=== PATIENT | female | born 1985 | race Caucasian/White ===

== ENCOUNTER 2016-08-25 18:59 | Emergency (ER) | payer BC, OTHER ==
[2016-08-25] MEDS ORDERED: SODIUM CHLORIDE 0.9% 2,000 ML IV STA (20:50)
[2016-08-25] MEDS ORDERED: METOCLOPRAMIDE 5 MG/ML 2 ML VIAL IVP STA (20:50)
--- NOTE | 2016-08-25 21:16 | ED ---
Nausea/Vomiting/Diarrhea HPI - General Chief complaint: Nausea/Vomiting/Diarrhea Stated complaint: 7 1/2 weeks and vomiting nonstop Time Seen by Provider: 08/25/16 20:45 Source: patient, RN notes reviewed Mode of arrival: wheelchair Limitations: no limitations - History of Present Illness Initial comments: This a 31-year-old female presents emergency Department with chief complaint of nausea vomiting. Patient states that she is approximately 8 weeks . Patient has seen her PARCEL CARRIER Dr. Doe. Patient is A0. Patient states that she has not set vomiting over the last day or so. Patient denies any abdominal pain denies vaginal bleeding, vaginal discharge, diarrhea, constipation. Denies any hematemesis or coffee-ground emesis. Denies fever, chills. - Related Data Home Medications Medication Instructions Recorded Confirmed Multivitamins, Thera [Multivitamin 1 tab PO DAILY 08/25/16 08/25/16 (formulary)] Previous Rx's Medication Instructions Recorded Metoclopramide [Reglan] 10 mg PO TID PRN #15 tab 08/25/16 Allergies Allergy/AdvReac Type Severity Reaction Status Date / Time Penicillins Allergy Unknown Verified 08/25/16 20:49 Childhood Review of Systems ROS Statement: Those systems with pertinent positive or pertinent negative responses have been documented in the HPI. ROS Other: All systems not noted in ROS Statement are negative. Past Medical History Past Medical History: No Reported History History of Any Multi-Drug Resistant Organisms: None Reported Past Surgical History: Section Past Psychological History: No Psychological Hx Reported Smoking Status: Former smoker Past Alcohol Use History: None Reported Past Drug Use History: None Reported General Exam Limitations: no limitations General appearance: alert, in no apparent distress Head exam: Present: atraumatic, normocephalic, normal inspection Neck exam: Present: normal inspection, full ROM. Absent: tenderness, meningismus, lymphadenopathy Respiratory exam: Present: normal lung sounds bilaterally. Absent: respiratory distress, wheezes, rales, rhonchi, stridor Cardiovascular Exam: Present: regular rate, normal rhythm, normal heart sounds. Absent: systolic murmur, diastolic murmur, rubs, gallop, clicks GI/Abdominal exam: Present: soft, normal bowel sounds. Absent: distended, tenderness, guarding, rebound, rigid Back exam: Absent: CVA tenderness (R), CVA tenderness (L) Course Vital Signs 08/25/16 19:33 Temperature 98.5 F Pulse Rate 76 Respiratory 18 Rate Blood Pressure 103/56 O2 Sat by Pulse 100 Oximetry Medical Decision Making - Medical Decision Making 31-year-old female presented emergency department for nausea vomiting early . Patient states she feels much better after IV fluids, Reglan. Patient be discharged this time with Reglan. Return parameters were discussed. - Lab Data Result diagrams: 08/25/16 21:15 08/25/16 21:15 Lab Results 08/25/16 08/25/16 08/25/16 Range/Units 21:15 21:15 21:15 WBC 11.3 H (3.8-10.6) k/uL RBC 5.02 (3.80-5.40) m/uL Hgb 12.5 (11.4-16.0) gm/dL Hct 39.3 (34.0-46.0) % MCV 78.4 L (80.0-100.0) fL MCH 25.0 (25.0-35.0) pg MCHC 31.9 (31.0-37.0) g/dL RDW 15.3 (11.5-15.5) % Plt Count 268 (150-450) k/uL Neutrophils % 69 % Lymphocytes % 24 % Monocytes % 5 % Eosinophils % 1 % Basophils % 0 % Neutrophils # 7.8 H (1.3-7.7) k/uL Lymphocytes # 2.7 (1.0-4.8) k/uL Monocytes # 0.6 (0-1.0) k/uL Eosinophils # 0.1 (0-0.7) k/uL Basophils # 0.0 (0-0.2) k/uL Hypochromasia Slight Sodium 137 (137-145) mmol/L Potassium 4.1 (3.5-5.1) mmol/L Chloride 102 (98-107) mmol/L Carbon Dioxide 23 (22-30) mmol/L Anion Gap 12 mmol/L BUN 15 (7-17) mg/dL Creatinine 0.60 (0.52-1.04) mg/dL Est GFR (MDRD) Af Amer >60 (>60 ml/min/1.73 sqM) Est GFR (MDRD) Non-Af >60 (>60 ml/min/1.73 sqM) Glucose 92 (74-99) mg/dL Calcium 9.5 (8.4-10.2) mg/dL Total Bilirubin 0.7 (0.2-1.3) mg/dL AST 24 (14-36) U/L ALT 37 (9-52) U/L Alkaline Phosphatase 104 (38-126) U/L Total Protein 7.6 (6.3-8.2) g/dL Albumin 4.3 (3.5-5.0) g/dL Amylase 51 (30-110) U/L Lipase 40 (23-300) U/L HCG, Quant 75980.6 mIU/mL Urine Color Dark Yellow Urine Appearance Turbid H (Clear) Urine pH 5.5 (5.0-8.0) Ur Specific [place] 1.032 (1.001-1.035) Urine Protein 1+ H (Negative) Urine Glucose (UA) Negative (Negative) Urine Ketones 1+ H (Negative) Urine Blood Negative (Negative) Urine Nitrite Negative (Negative) Urine Bilirubin 1+ H (Negative) Urine Urobilinogen 4.0 (<2.0) mg/dL Ur Leukocyte Esterase Large H (Negative) Urine RBC 4 (0-5) /hpf Urine WBC 29 H (0-5) /hpf Ur Squamous Epith Cells 15 H (0-4) /hpf Urine Bacteria Rare H (None) /hpf Urine Mucus Rare H (None) /hpf Disposition Clinical Impression: Nausea/vomiting in Disposition: HOME SELF-CARE Condition: Stable Instructions: Acute Nausea and Vomiting (ED) Additional Instructions: Please return to the Emergency Department if symptoms worsen or any other concerns. Prescriptions: Metoclopramide [Reglan] 10 mg PO TID PRN #15 tab PRN Reason: GERD Time of Disposition: 22:59
[2016-08-25 21:26] LABS: Basophils % (A) 0 %; CH 24.7; CHCM 31.6; Eosinophils # (A) 0.1 k/uL (0-0.7); Eosinophils % (A) 1 %; HCT 39.3 % (34.0-46.0); HDW 2.66; HGB 12.5 gm/dL (11.4-16.0); Hypochromasia Slight; Luc # (Auto) 0.14; Luc % (Auto) 1; Lymphocytes # (A) 2.7 k/uL (1.0-4.8); Lymphocytes % (A) 24 %; MCHC 31.9 g/dL (31.0-37.0); MCV 78.4 fL (80.0-100.0); Mean Platelet Volume 6.7; Monocytes # (A) 0.6 k/uL (0-1.0); Monocytes % (A) 5 %; Neutrophils # (A) 7.8 k/uL (1.3-7.7); Neutrophils % (A) 69 %; RBC 5.02 m/uL (3.80-5.40); RDW 15.3 % (11.5-15.5); WBC 11.3 k/uL (3.8-10.6); WBC (Perox) 11.08
[2016-08-25 21:36] LABS: Appearance,Urine Turbid (Clear); Bacteria,Urine Rare /hpf; Bilirubin,Urine 1+ (Negative); Glucose,Urine (UA) Negative (Negative); Ketones,Urine 1+ (Negative); Leukocyte Esterase,Urine Large (Negative); Mucus,Urine Rare /hpf; Nitrite,Urine Negative (Negative); PH, Urine 5.5 (5.0-8.0); Particle Count 19730; Protein,Urine 1+ (Negative); RBC,Urine 4 /hpf (0-5); Specific Gravity,Urine 1.032 (1.001-1.035); Squamous Epithelial Cell,Urine 15 /hpf (0-4); UA Billing (MACRO vs. MICRO) MICRO; WBC,Urine 29 /hpf (0-5)
[2016-08-25 21:46] LABS: ALT 37 U/L (9-52); AST 24 U/L (14-36); Alkaline Phosphatase 104 U/L (38-126); Amylase 51 U/L (30-110); Anion Gap 12 mmol/L; Blood Urea Nitrogen 15 mg/dL (7-17); Calcium 9.5 mg/dL (8.4-10.2); Carbon Dioxide 23 mmol/L (22-30); Chloride 102 mmol/L (98-107); Glucose 92 mg/dL (74-99); Non-African American GFR(MDRD) >60 (>60 ml/min/1.73 sqM); Potassium 4.1 mmol/L (3.5-5.1); Sodium 137 mmol/L (137-145); Total Bilirubin 0.7 mg/dL (0.2-1.3); Total Protein 7.6 g/dL (6.3-8.2)
[2016-08-25 22:49] LABS: HCG,Quantitative Serum 86629.6 mIU/mL
[2016-08-25 23:22] VITALS: BP 108/52; PULSE 66; RESP 16; TEMP 98.2
== END 2016-08-25 23:51 | disposition home or self-care (01) ==
LOC: EC 18:59
DX: O21.9 Vomiting of pregnancy, unspecified (principal); Z3A.08 8 weeks gestation of pregnancy; Z87.891 Personal history of nicotine dependence; Z79.899 Other long term (current) drug therapy; Z88.0 Allergy status to penicillin
CPT/HCPCS: 36415; 80053; 82150; 83690; 85025; 81001; 84702; 87086; 99284; 96374; 96361 ×2; J2765

== ENCOUNTER → 2016-09-01 | Outpatient (CLI) | payer OTHER ==
--- NOTE | 2016-09-01 12:08 | US ---
EXAMINATION TYPE: US OB <=14 wks transvag DATE OF EXAM: 09/01/2016 10:56 AM COMPARISON: NONE CLINICAL HISTORY: 31-year-old female Z36 Confirm Dates. Date of LMP: 07/04/2016 EXAM PERFORMED: Transvaginal (TV) and Transabdominal (TA) scanning was medically necessary to adequa tely evaluate. FINDINGS: EXAM MEASUREMENTS: GESTATIONAL AGE / DATING Physician Established: ) Not established yet Dates by LMP: ( 8 weeks/3 days) EDC: 04/10/2017 Dates by First Scan: No previous this is first scan Dates by Current Scan for: (8 weeks/4 days) EDC: 04/09/2017 MATERNAL ANATOMY Uterus: 8.9 x 7.4 x 8.2 cm, possible septate uterus with the gestation seen on the left and possibly implanted on the septum. Right Ovary: 2.5 x 1.5 x 2.6 cm Left Ovary: not seen Post CDS / Adnexa: wnl Presence of free fluid: no Presence of corpus luteal cyst: no Presence of subchorionic bleed: no GESTATION / SURVEY CRL: 1.8 cm (8 weeks/2 days) MSD: 3.7 cm (8 weeks/6 days) Yolk Sac (normal less than 6mm): 5 Heart Rate: 155 bpm Rhythm: Normal IUP: Viable IUP IMPRESSION: 1. Single live intrauterine with estimated gestational age of 8 weeks 3 days by LMP. Curren t ultrasound biometry is concordant (8 weeks 4 days). 2. Query any known congenital uterine anomaly. There may be a septate uterus with left-sided implanta tion along the septum. Follow-up as indicated. 3. Complete survey recommended at 18-20 weeks.
[2016-09-01 12:19] LABS: Hepatitis B Surface Ag Index 0.07
[2016-09-03 07:31] LABS: HIV-1/HIV-2 Ab Screen NONREAC (NON REAC)
== END | disposition home or self-care (01) ==
LOC: RADUSWWP 10:30
PROVIDERS: ATTEND Obstetrics & Gynecology
DX: Z36 Encounter for antenatal screening of mother (principal); Z3A.08 8 weeks gestation of pregnancy
CPT/HCPCS: 36415; 76801; 76817; 86762; 86780; 86850; 86900; 86901; 87340; 87389

== ENCOUNTER 2016-11-08 18:01 | Emergency (ER) | payer OTHER ==
[2016-11-08 18:17] LABS: Glucose,Whole Blood 85 mg/dL (75-99)
[2016-11-08] MEDS ORDERED: SODIUM CHLORIDE 0.9% 1,000 ML IV STA (18:22)
[2016-11-08] MEDS ORDERED: ACETAMINOPHEN TAB 500 MG TAB PO STA (18:26)
--- NOTE | 2016-11-08 18:41 | ED ---
Dizziness HPI - General Chief Complaint: Syncope Stated Complaint: Syncope Time Seen by Provider: 11/08/16 18:15 Source: EMS, RN notes reviewed, old records reviewed Mode of arrival: EMS - History of Present Illness Initial Comments: This is a 31-year-old female presenting to the emergency Department chief complaint of syncopal episode while at a restaurant today. Patient reports that she was standing in line and then all of a sudden passed out. She reports that she had the back of her head and did lose consciousness for one or 2 seconds. Patient mainly complains of a mild headache. Patient reports that she awoke with multiple people standing around her. Patient reports that she is currently 17 weeks . Patient denies any abdominal pain, chest pain, or shortness of breath. Patient states that she's never had this happen before. Patient's LEGAL RESEARCH ANALYST is Dr. Doe. She denies any vaginal bleeding or discharge. She reports that she was feeling fine today and went to a baseball game earlier had no issues. Patient reports she's been trying to remain hydrated. Denies any dysuria mature changes in bowel movements. - Related Data Home Medications Medication Instructions Recorded Confirmed No Known Home Medications [No 11/08/16 11/08/16 Known Home Medications] Allergies Allergy/AdvReac Type Severity Reaction Status Date / Time Penicillins Allergy Unknown Verified 11/08/16 18:41 Childhood Review of Systems ROS Statement: Those systems with pertinent positive or pertinent negative responses have been documented in the HPI. ROS Other: All systems not noted in ROS Statement are negative. Past Medical History Past Medical History: No Reported History History of Any Multi-Drug Resistant Organisms: None Reported Past Surgical History: Section Past Psychological History: No Psychological Hx Reported Smoking Status: Former smoker Past Alcohol Use History: None Reported Past Drug Use History: None Reported General Exam - General Exam Comments Initial Comments: This is a pleasant 31-year-old female. Patient is on appear to be in any acute distress. General appearance: alert, in no apparent distress Head exam: Present: atraumatic, normocephalic, normal inspection Eye exam: Present: normal appearance, PERRL, EOMI. Absent: scleral icterus, conjunctival injection, periorbital swelling ENT exam: Present: normal exam, mucous membranes moist Neck exam: Present: normal inspection. Absent: tenderness, meningismus, lymphadenopathy Respiratory exam: Present: normal lung sounds bilaterally. Absent: respiratory distress, wheezes, rales, rhonchi, stridor Cardiovascular Exam: Present: regular rate, normal rhythm, normal heart sounds. Absent: systolic murmur, diastolic murmur, rubs, gallop, clicks GI/Abdominal exam: Present: soft, normal bowel sounds. Absent: distended, tenderness, guarding, rebound, rigid Extremities exam: Present: normal inspection, full ROM, normal capillary refill. Absent: tenderness, pedal edema, joint swelling, calf tenderness Back exam: Present: normal inspection Neurological exam: Present: alert, oriented X3, CN II-XII intact Expanded Patient oriented to: Present: person, place, time Speech: Present: fluid speech Cranial nerves: EOM's Intact: Normal, Gag Reflex: Normal, Tongue Deviation: Normal, Facial Sensation: Normal Cerebellar function: Finger to Nose: Normal Upper motor neuron: Pronator Drift: Normal Sensory exam: Upper Extremity Light Touch: Normal, Lower Extremity Light Touch: Normal Motor strength exam: RUE: 5, LUE: 5, RLE: 5, LLE: 5 Eye Response: (4) open spontaneously Motor Response: (6) obeys commands Verbal Response: (5) oriented [place] Total: 15 Psychiatric exam: Present: normal affect, normal mood Skin exam: Present: warm, dry, intact, normal color. Absent: rash Course Vital Signs 11/08/16 11/08/16 11/08/16 18:02 18:52 18:53 Temperature 98.2 F Pulse Rate 71 Respiratory 18 Rate Blood Pressure 116/59 Blood Pressure 117/58 [Right Arm Sitting] Blood Pressure 114/52 [Right Arm Supine] Blood Pressure 106/55 [Standing] O2 Sat by Pulse 99 Oximetry 11/08/16 19:05 Temperature Pulse Rate 70 Respiratory 16 Rate Blood Pressure 103/69 Blood Pressure [Right Arm Sitting] Blood Pressure [Right Arm Supine] Blood Pressure [Standing] O2 Sat by Pulse 99 Oximetry EKG Findings - EKG Comments: EKG Findings:: EKG shows normal sinus rhythm. Ventricular rate 71 bpm. WV interval 150 ms. QRS duration 80 ms. QT/QTc is 46/441 ms. No distress elevation or T-wave inversion. No evidence of a atrial or ventricular arrhythmias. Medical Decision Making - Medical Decision Making This is a 31-year-old female presenting to the emergency Department chief complaint of syncopal episode while at a restaurant today. Patient reports that she was standing in line and then all of a sudden passed out. She reports that she had the back of her head and did lose consciousness for one or 2 seconds. Patient mainly complains of a mild headache. Patient reports that she awoke with multiple people standing around her. Patient reports that she is currently 17 weeks . Patient denies any abdominal pain, chest pain, or shortness of breath. Patient's heart tones were measured at 150. Patient EKG was reviewed and normal. I discussed doing a CAT scan with the patient however discussed also the effects of radiation and the fact the patient is . Patient elects to not have a CAT scan at this time. Patient is neurologically intact. GCS of 15. Patient has no physical exam findings. Patient reports that she just feels mildly dizzy. She denies any vertigo like symptoms. Discussed the patient likely had an orthostatic episode. She does report that she did drinking excess amounts of caffeine. Discussed that is not appropriate during that she needs to remain hydrated. Patient agrees to follow-up with her primary care provider tomorrow. Patient nurse's treatment plan will comply. - Lab Data Result diagrams: 11/08/16 18:10 11/08/16 18:10 Lab Results 11/08/16 11/08/16 11/08/16 Range/Units 18:10 18:10 18:10 WBC 9.2 (3.8-10.6) k/uL RBC 4.03 (3.80-5.40) m/uL Hgb 10.9 L (11.4-16.0) gm/dL Hct 33.5 L (34.0-46.0) % MCV 83.1 (80.0-100.0) fL MCH 27.1 (25.0-35.0) pg MCHC 32.6 (31.0-37.0) g/dL RDW 16.7 H (11.5-15.5) % Plt Count 196 (150-450) k/uL Neutrophils % 73 % Lymphocytes % 20 % Monocytes % 5 % Eosinophils % 1 % Basophils % 0 % Neutrophils # 6.7 (1.3-7.7) k/uL Lymphocytes # 1.9 (1.0-4.8) k/uL Monocytes # 0.4 (0-1.0) k/uL Eosinophils # 0.1 (0-0.7) k/uL Basophils # 0.0 (0-0.2) k/uL Anisocytosis Slight PT (9.0-12.0) sec INR (<1.1) APTT (22.0-30.0) sec Sodium 136 L (137-145) mmol/L Potassium 4.1 (3.5-5.1) mmol/L Chloride 109 H (98-107) mmol/L Carbon Dioxide 19 L (22-30) mmol/L Anion Gap 8 mmol/L BUN 10 (7-17) mg/dL Creatinine 0.52 (0.52-1.04) mg/dL Est GFR (MDRD) Af Amer >60 (>60 ml/min/1.73 sqM) Est GFR (MDRD) Non-Af >60 (>60 ml/min/1.73 sqM) Glucose 84 (74-99) mg/dL POC Glucose (mg/dL) (75-99) mg/dL POC Glu Wall And Floor Tiler ID Calcium 8.9 (8.4-10.2) mg/dL Magnesium 1.8 (1.6-2.3) mg/dL Total Bilirubin 0.4 (0.2-1.3) mg/dL AST 14 (14-36) U/L ALT 21 (9-52) U/L Alkaline Phosphatase 88 (38-126) U/L Total Creatine Kinase <20 L (30-135) U/L CK-MB (CK-2) <0.2 (0.0-2.4) ng/mL CK-MB (CK-2) Rel Index Troponin I <0.012 (0.000-0.034) ng/mL Total Protein 6.1 L (6.3-8.2) g/dL Albumin 3.2 L (3.5-5.0) g/dL Urine Color Urine Appearance (Clear) Urine pH (5.0-8.0) Ur Specific [place] (1.001-1.035) Urine Protein (Negative) Urine Glucose (UA) (Negative) Urine Ketones (Negative) Urine Blood (Negative) Urine Nitrite (Negative) Urine Bilirubin (Negative) Urine Urobilinogen (<2.0) mg/dL Ur Leukocyte Esterase (Negative) Urine RBC (0-5) /hpf Urine WBC (0-5) /hpf Ur Squamous Epith Cells (0-4) /hpf Calcium Oxalate Crystal (None) /hpf Amorphous Sediment (None) /hpf Urine Bacteria (None) /hpf Urine Mucus (None) /hpf 11/08/16 11/08/16 11/08/16 Range/Units 18:10 18:10 18:13 WBC (3.8-10.6) k/uL RBC (3.80-5.40) m/uL Hgb (11.4-16.0) gm/dL Hct (34.0-46.0) % MCV (80.0-100.0) fL MCH (25.0-35.0) pg MCHC (31.0-37.0) g/dL RDW (11.5-15.5) % Plt Count (150-450) k/uL Neutrophils % % Lymphocytes % % Monocytes % % Eosinophils % % Basophils % % Neutrophils # (1.3-7.7) k/uL Lymphocytes # (1.0-4.8) k/uL Monocytes # (0-1.0) k/uL Eosinophils # (0-0.7) k/uL Basophils # (0-0.2) k/uL Anisocytosis PT 10.5 (9.0-12.0) sec INR 1.0 (<1.1) APTT 22.4 (22.0-30.0) sec Sodium (137-145) mmol/L Potassium (3.5-5.1) mmol/L Chloride (98-107) mmol/L Carbon Dioxide (22-30) mmol/L Anion Gap mmol/L BUN (7-17) mg/dL Creatinine (0.52-1.04) mg/dL Est GFR (MDRD) Af Amer (>60 ml/min/1.73 sqM) Est GFR (MDRD) Non-Af (>60 ml/min/1.73 sqM) Glucose (74-99) mg/dL POC Glucose (mg/dL) 85 (75-99) mg/dL POC Glu Wall And Floor Tiler ID [place] Calcium (8.4-10.2) mg/dL Magnesium (1.6-2.3) mg/dL Total Bilirubin (0.2-1.3) mg/dL AST (14-36) U/L ALT (9-52) U/L Alkaline Phosphatase (38-126) U/L Total Creatine Kinase (30-135) U/L CK-MB (CK-2) (0.0-2.4) ng/mL CK-MB (CK-2) Rel Index Troponin I (0.000-0.034) ng/mL Total Protein (6.3-8.2) g/dL Albumin (3.5-5.0) g/dL Urine Color Yellow Urine Appearance Cloudy H (Clear) Urine pH 6.0 (5.0-8.0) Ur Specific [place] 1.022 (1.001-1.035) Urine Protein Trace H (Negative) Urine Glucose (UA) Negative (Negative) Urine Ketones Negative (Negative) Urine Blood Negative (Negative) Urine Nitrite Negative (Negative) Urine Bilirubin Negative (Negative) Urine Urobilinogen 4.0 (<2.0) mg/dL Ur Leukocyte Esterase Large H (Negative) Urine RBC <1 (0-5) /hpf Urine WBC 24 H (0-5) /hpf Ur Squamous Epith Cells 11 H (0-4) /hpf Calcium Oxalate Crystal Rare H (None) /hpf Amorphous Sediment Rare H (None) /hpf Urine Bacteria Occasional H (None) /hpf Urine Mucus Occasional H (None) /hpf Disposition Clinical Impression: Syncope Disposition: HOME SELF-CARE Condition: Good Instructions: Syncope in Children (ED) Additional Instructions: Patient advised to follow-up with primary care provider tomorrow. Patient is to rest, increase fluids. Return to the emergency department if any alarming signs or symptoms occur. Referrals: Kusum Clarke DO [Primary Care Provider] - 1-2 days Time of Disposition: 19:56
[2016-11-08 18:53] LABS: Anisocytosis Slight; Basophils % (A) 0 %; CH 27.4; CHCM 33.1; Eosinophils # (A) 0.1 k/uL (0-0.7); Eosinophils % (A) 1 %; HCT 33.5 % (34.0-46.0); HDW 2.68; HGB 10.9 gm/dL (11.4-16.0); Luc # (Auto) 0.12; Luc % (Auto) 1; Lymphocytes # (A) 1.9 k/uL (1.0-4.8); Lymphocytes % (A) 20 %; MCH 27.1 pg (25.0-35.0); MCHC 32.6 g/dL (31.0-37.0); MCV 83.1 fL (80.0-100.0); Mean Platelet Volume 6.9; Monocytes # (A) 0.4 k/uL (0-1.0); Monocytes % (A) 5 %; Neutrophils # (A) 6.7 k/uL (1.3-7.7); Neutrophils % (A) 73 %; RBC 4.03 m/uL (3.80-5.40); RDW 16.7 % (11.5-15.5); WBC 9.2 k/uL (3.8-10.6); WBC (Perox) 9.54
[2016-11-08 19:00] LABS: Amorphous Sediment,Urine Rare /hpf; Appearance,Urine Cloudy (Clear); Bacteria,Urine Occasional /hpf; Bilirubin,Urine Negative (Negative); Calcium Oxalate Crystals,Urine Rare /hpf; Glucose,Urine (UA) Negative (Negative); Ketones,Urine Negative (Negative); Leukocyte Esterase,Urine Large (Negative); Mucus,Urine Occasional /hpf; Nitrite,Urine Negative (Negative); Particle Count 9358; Protein,Urine Trace (Negative); RBC,Urine <1 /hpf (0-5); Specific Gravity,Urine 1.022 (1.001-1.035); Squamous Epithelial Cell,Urine 11 /hpf (0-4); UA Billing (MACRO vs. MICRO) MICRO; WBC,Urine 24 /hpf (0-5)
[2016-11-08 19:03] LABS: Partial Thromboplastin Time 22.4 sec (22.0-30.0); Prothrombin Time 10.5 sec (9.0-12.0)
[2016-11-08 19:15] LABS: ALT 21 U/L (9-52); AST 14 U/L (14-36); Alkaline Phosphatase 88 U/L (38-126); Anion Gap 8 mmol/L; Blood Urea Nitrogen 10 mg/dL (7-17); Calcium 8.9 mg/dL (8.4-10.2); Carbon Dioxide 19 mmol/L (22-30); Chloride 109 mmol/L (98-107); Glucose 84 mg/dL (74-99); Magnesium 1.8 mg/dL (1.6-2.3); Non-African American GFR(MDRD) >60 (>60 ml/min/1.73 sqM); Potassium 4.1 mmol/L (3.5-5.1); Sodium 136 mmol/L (137-145); Total Bilirubin 0.4 mg/dL (0.2-1.3); Total Protein 6.1 g/dL (6.3-8.2)
[2016-11-08 19:17] LABS: Creatine Kinase <20 U/L (30-135)
[2016-11-08 19:30] LABS: Creatine Kinase MB <0.2 ng/mL (0.0-2.4); Troponin I <0.012 ng/mL (0.000-0.034)
[2016-11-08 20:33] VITALS: BP 97/48; PULSE 65; RESP 18; TEMP 98.4
== END 2016-11-08 20:33 | disposition home or self-care (01) ==
LOC: EC 18:01
DX: O26.892 Other specified pregnancy related conditions, second trimester (principal); O99.89 Other specified diseases and conditions complicating pregnancy, childbirth and the puerperium; R55 Syncope and collapse; R51 Headache; Z3A.17 17 weeks gestation of pregnancy; Z87.891 Personal history of nicotine dependence; Z88.0 Allergy status to penicillin
CPT/HCPCS: 36415; 80053; 81001; 82550; 82553; 83735; 84484; 85025; 85610; 85730; 93005; 96360; 99285

== ENCOUNTER → 2016-12-31 | Outpatient (CLI) | payer OTHER ==
[2016-12-31 10:49] LABS: CHCM 32.1; HCT 33.2 % (34.0-46.0); Hypochromasia Slight; MCV 84.7 fL (80.0-100.0); Mean Platelet Volume 6.9; RBC 3.92 m/uL (3.80-5.40); RDW 15.1 % (11.5-15.5); WBC 10.7 k/uL (3.8-10.6)
== END | disposition home or self-care (01) ==
LOC: LABWHC1 08:46
PROVIDERS: ATTEND Obstetrics & Gynecology
DX: Z34.82 Encounter for supervision of other normal pregnancy, second trimester (principal); Z3A.00 Weeks of gestation of pregnancy not specified
CPT/HCPCS: 36415; 82950; 85027

== ENCOUNTER → 2017-01-06 | Outpatient (CLI) | payer OTHER ==
[2017-01-06 11:59] LABS: Glucose 3 Hour, Gest 143 mg/dL
== END | disposition home or self-care (01) ==
LOC: LABWHC1 07:20
PROVIDERS: ATTEND Obstetrics & Gynecology
DX: O99.810 Abnormal glucose complicating pregnancy (principal); Z3A.00 Weeks of gestation of pregnancy not specified
CPT/HCPCS: 36415; 82951; 82952

== ENCOUNTER 2017-03-30 02:40 | Inpatient (IN) | payer OTHER ==
[2017-03-30 02:56] LABS: Glucose,Whole Blood 105 mg/dL (75-99)
[2017-03-30] MEDS ORDERED: LACTATED RINGERS 1,000 ML IV ONE (02:56)
[2017-03-30] MEDS ORDERED: CITRIC ACID-SODIUM CITRATE 15 ML CUP PO ONE (02:56)
[2017-03-30 03:09] LABS: Basophils % (A) 0 %; CH 25.3; CHCM 31.5; Eosinophils # (A) 0.1 k/uL (0-0.7); Eosinophils % (A) 1 %; HCT 34.6 % (34.0-46.0); HDW 3.21; HGB 10.6 gm/dL (11.4-16.0); Hypochromasia Moderate; Luc # (Auto) 0.12; Luc % (Auto) 1; Lymphocytes # (A) 2.5 k/uL (1.0-4.8); Lymphocytes % (A) 20 %; MCH 24.7 pg (25.0-35.0); MCHC 30.7 g/dL (31.0-37.0); MCV 80.5 fL (80.0-100.0); Mean Platelet Volume 6.7; Monocytes # (A) 0.7 k/uL (0-1.0); Monocytes % (A) 5 %; Neutrophils # (A) 9.2 k/uL (1.3-7.7); Neutrophils % (A) 73 %; RDW 15.4 % (11.5-15.5); WBC 12.5 k/uL (3.8-10.6); WBC (Perox) 12.15
[2017-03-30] MEDS ORDERED: ceFAZolin 3 GM in SODIUM CHLORIDE 0.9% 100 ML IVPB ONE (03:17)
[2017-03-30 03:39] VITALS: BMI 47.5
[2017-03-30] MEDS ORDERED: MORPHINE SULFATE (PF) 0.3 MG/0.3 ML SYR ONE (03:46)
[2017-03-30] MEDS ORDERED: diphenhydrAMINE 50 MG/ML 1 ML VIAL ONE (03:46)
[2017-03-30] MEDS ORDERED: OXYTOCIN 10 UNIT/ML 1 ML VIAL ONE (03:46)
[2017-03-30] MEDS ORDERED: ONDANSETRON 4 MG/2 ML VIAL ONE (03:46)
[2017-03-30] MEDS ORDERED: NALBUPHINE 10 MG/ML AMPUL ONE (03:46)
[2017-03-30] MEDS ORDERED: ONDANSETRON 4 MG/2 ML VIAL IVP PRN ×2 (04:17→04:41)
[2017-03-30] MEDS ORDERED: MORPHINE SULFATE 10 MG/ML SYRINGE IVP PRN (04:17)
[2017-03-30] MEDS ORDERED: NALOXONE 0.4 MG/ML 1 ML VIAL IV PRN ×2 (04:17→04:41)
[2017-03-30] MEDS ORDERED: METOCLOPRAMIDE 5 MG/ML 2 ML VIAL IVP PRN (04:41)
[2017-03-30] MEDS ORDERED: LANOLIN CREAM 5 GM TUBE TOPICAL PRN (04:41)
[2017-03-30] MEDS ORDERED: ZOLPIDEM 5 MG TAB PO PRN (04:41)
[2017-03-30] MEDS ORDERED: diphenhydrAMINE 25 MG CAP PO PRN (04:41)
[2017-03-30] MEDS ORDERED: Acetaminophen-Codeine 300-30mg TAB PO PRN (04:41)
[2017-03-30] MEDS ORDERED: ACETAMINOPHEN TAB 325 MG TAB PO PRN (04:41)
[2017-03-30] MEDS ORDERED: OXYTOCIN 20 UNITS/1000 ML NS 1,000 ML IV SCH (04:45)
--- NOTE | 2017-03-30 04:53 | P.HPOB ---
History of Present Illness H&P Date: 03/30/17 Chief Complaint: Contractions and leaking fluid. This patient is a pleasant 32-year-old 5 para 1 female estimated date of confinement 04/10/2017 estimated gestational age 38-1/2 weeks who presents to labor and delivery with a gush of fluid at 1:30 this morning and contractions thereafter. Patient's care is complicated by gestational diabetes that's been managed by maternal medicine. Patient's also been persistent breech presentation. Patient's had a previous section as requested repeat section and tubal ligation. Review of Systems Constitutional: Denies chills, Denies fever Ears, nose, mouth and throat: Denies headache, Denies sore throat Cardiovascular: Denies chest pain, Denies shortness of breath Respiratory: Denies cough Gastrointestinal: Reports heartburn Genitourinary: Reports Musculoskeletal: Denies myalgias Past Medical History Additional Past Medical History / Comment(s): Gestational diabetes. History of Any Multi-Drug Resistant Organisms: None Reported Past Surgical History: Section Additional Past Surgical History / Comment(s): c/s 2012 Past Anesthesia/Blood Transfusion Reactions: No Reported Reaction Past Psychological History: No Psychological Hx Reported Smoking Status: Never smoker Past Alcohol Use History: None Reported Past Drug Use History: None Reported - Past Family History Father Additional Family Medical History / Comment(s): crohns Medications and Allergies Home Medications Medication Instructions Recorded Confirmed Type No Known Home Medications [No 11/08/16 03/30/17 History Known Home Medications] Allergies Allergy/AdvReac Type Severity Reaction Status Date / Time Penicillins Allergy Unknown Verified 03/30/17 02:44 Childhood Exam - Vital Signs Vital signs: Vital Signs Temp Pulse Resp BP 03/30/17 03:26 97.4 F L 81 18 126/61 Intake and Output 03/29/17 03/29/17 03/30/17 14:59 22:59 06:59 Other: Weight 125.645 kg Patient Weight 03/30/17 06:59 Weight 125.645 kg - OBG Physical Exam Abdomen: bowel sounds normal (Obese), no diffuse tenderness, no bruit present, no guarding noted, no hepatomegaly, no splenomegaly, no mass Vulva: both: normal Cervix: Cervix is 1-2 cm dilated with gross rupture membranes Uterus: enlarged Results blood work shows she has A positive, rubella immune, RPR nonreactive, hepatitis B negative, HIV nonreactive, Glucola was 179 with an abnormal 3 hour gtt. Group B strep was negative. Ultrasounds have been normal. Result Diagrams: 03/30/17 03:00 Abnormal Lab Results - Last 24 Hours (Table) 03/30/17 03/30/17 Range/Units 02:46 03:00 WBC 12.5 H (3.8-10.6) k/uL Hgb 10.6 L (11.4-16.0) gm/dL MCH 24.7 L (25.0-35.0) pg MCHC 30.7 L (31.0-37.0) g/dL Neutrophils # 9.2 H (1.3-7.7) k/uL POC Glucose (mg/dL) 105 H (75-99) mg/dL Assessment and Plan Assessment: This is a pleasant 32-year-old 5 para 1 female 38 and half weeks gestation with spontaneous rupture membranes and active labor. Known breech presentation and previous section and also requesting permanent sterilization. Patient is also gestational diabetic. Plan is repeat low transverse section and bilateral partial salpingectomy. Patient understands a tubal ligation is permanent however there is a failure rate of approximately 20 per thousand procedures done. She understands if she does become she has a 50% chance of a tubal or an ectopic . Patient also understands surgery itself has risks including risks of infection, bleeding, possible U bowel, bladder, vessels, and/or other organs. She also understands affected her obesity increases her risk of post-operative infection and other complications. All the patient's questions are answered and written consent is obtained. (1) Gestational diabetes Current Visit: Yes Status: Acute Code(s): O24.419 - GESTATIONAL DIABETES MELLITUS IN , UNSP CONTROL SNOMED Code(s): 01515777 (2) Normal labor Current Visit: Yes Status: Acute Code(s): O80 - ENCOUNTER FOR FULL-TERM UNCOMPLICATED DELIVERY; Z37.9 - OUTCOME OF DELIVERY, UNSPECIFIED SNOMED Code(s ): 93921185 (3) Previous delivery affecting Current Visit: Yes Status: Acute Code(s): O34.219 - MATERNAL CARE FOR UNSP TYPE SCAR FROM PREVIOUS DEL SNOMED Code(s): 640781332 (4) Breech delivery Current Visit: Yes Status: Acute Code(s): O32.1XX0 - MATERNAL CARE FOR BREECH PRESENTATION, UNSP SNOMED Code(s): 397684735 (5) Family planning Current Visit: Yes Status: Acute Code(s): Z30.09 - ENCOUNTER FOR OTH GENERAL CNSL AND ADVICE ON CONTRACEPTION SNOMED Code(s): 44279176 (6) Obesity affecting in third trimester Current Visit: Yes Status: Acute Code(s): O99.213 - OBESITY COMPLICATING , THIRD TRIMESTER SNOMED Code(s): 502003112315
--- NOTE | 2017-03-30 05:02 | P.OP ---
Date of Procedure: 03/30/17 Preoperative Diagnosis: #1: 38-1/2 weeks . #2: Spontaneous rupture membranes in active labor. #3: Previous section desires repeat. #4: Multi parity desires permanent sterilization. #5: Gestational diabetes. #6: Morbid obesity. Postoperative Diagnosis: Same Procedure(s) Performed: #1: Repeat low transverse section. #2: Bilateral partial salpingectomy. Anesthesia: spinal Surgeon: Boris Doe Toy Designer #1: Rissa Michelle Estimated Blood Loss (ml): 800 Pathology: other (Placenta and bilateral fallopian tube segments.) Condition: stable Disposition: floor Indications for Procedure: Please see dictated H&P for intimate details of this patient's admission. Brief summary is a pleasant 32-year-old 5 para 1 female 38-1/2 weeks gestation admitted to labor and delivery in active labor. Patient's had a previous section and is requesting repeat and tubal ligation. Patient also has known breech presentation. Patient understands this surgery and risks including risks of infection, bleeding, possible injury bowel, bladder, vessels , and other organs. All the patient's questions are answered and a written consent is obtained. Operative Findings: This is a vigorous viable female Apgars 8 and 9 delivery time is 0409 hrs. This patient has a Bocanegra catheter placed to straight drain. She subsequently taken to the operating room where she has a spinal anesthetic administered without incident. With an adequate level of anesthesia she has abdominal prep and drape. Scalpels and taken the previous Pfannenstiel incision is incised. A second scalpel is taken down the fascia the fascia scored with a knife. Fascial incision extended bilaterally using the Torres scissors. Fascia is then dissected sharply. Peritoneum identified and entered sharply. Peritoneal incision extended superior and inferior without difficulty. Bladder blade is then placed. Bladder peritoneum was taken sharply off the lower uterine segment. At this time the Chano retractor is placed. Scalpels taken low transverse uterine incision is then made. Using a hemostat I enter the uterine cavity is loss of clear fluid. This incision extended bluntly. The infant is found to be aidee breech presentation with sacrum anterior. Using usual breech maneuvers is delivered without difficulty. Vigorous viable female Apgars 8 and 9 delivery time was 0409 hrs. After delivery of the infant the umbilical cord is doubly clamped and cut. Appears to be trivascular. Placenta is manually extracted intact. Uterus is then externalized. Uterine incision is then demarcated with Dewey clamps. All debris is cleared from uterine cavity. Uterus is then closed using 0 Vicryl running locked fashion 2 layers. Additional sutures placed on the right side for added hemostasis. Then turned my attention to the left fallopian tube approximately 4 cm from the cornual insertion a small window is made to the mesial salpinx with Bovie cautery. Using a 2-0 silk I doubly ligate a piece the tube in 1-2 cm segment of tube was excised and handed off to pathology. Similar technique on the right side with similar results. Excellent hemostasis is noted. Excess fluid is removed from the abdomen and pelvis. Uterine incision inspected again and found to be hemostatic. With this done the uterus placed back into the abdomen. The parietal peritoneum was then identified and closed using 0 Vicryl running fashion. Rectus muscles reapproximated using 0 Vicryl interrupted fashion. Fascia is then closed using 0 PDS. Fascial incision is intact and hemostatic. Subcutaneous tissues and closed using a 3-0 Vicryl. Skin is and closed using cam. All counts are correct 3. and mother are taken to the birthing suite in satisfactory condition. There are no complications.
--- NOTE | 2017-03-30 05:04 | P.MSEPDOC ---
Presenting Problems - Arrival Data Date of Arrival on Unit: 03/30/17 Time of Arrival on Unit: 02:40 Mode of Transport: Bed - Complaint OB-Reason for Admission/Chief Complaint: Rule Out SROM Comment: SROM @ 0130 clear fluid Medical History - Information : 5 Para: 1 Term: 1 : 0 Abortions: Spontaneous or Elective: 3 Number of Living Children: 1 - Gestational Age Gestational Age by MAXI (wks/days): 38 Weeks and 3 Days - History Complications: GDM Review of Systems - Review of Systems Constitutional: No problems Breast: No problems ENT: No problems Cardiovascular: No problems Respiratory: No problems Gastrointestinal: No problems Genitourinary: No problems Musculoskeletal: No problems Neurological: No problems Skin: No problems Vital Signs - Temperature Temperature: 97.4 F Temperature Source: Temporal Artery Scan - Pulse Right Brachial Pulse Rate: 81 - Respirations Respiratory Rate: 18 Oxygen Delivery Method: Room Air - Blood Pressure Right Arm Blood Pressure: 126/61 Blood Pressure Mean: 82 Blood Pressure Source: Automatic Cuff Medical Screen Scoring (Pre) - Cervical Exam Dilation: 1-3 cm = 1 Effacement: More than 50% = 2 Membranes: Ruptured = 3 - Uterine Contractions Frequency: Scheduled / = 6 Duration: > 40 seconds = 2 Intensity: Contraction palpated strong = 1 - Maternal Vital Signs Maternal Temperature: N/A Signs of Preeclampsia: N/A Maternal Respirations: N/A - Pain Assessment Pain Scale Used: Numeric (1 - 10) Pain Intensity: 8 Pain Description: *Acute Pain Radiation Location: none Pain Frequency: Intermittent Pain Duration: 60 Pain Duration Units: Minutes Pain Behavior: Guarding, Moving Slowly, Vocalization Pain Aggravating Factors: Contractions Non-Pharmacological Interventions: Position/Reposition - Maternal Trauma Maternal Trauma: N/A - Assessment Baseline FHR: 130 Heart Rate - NICHD Category: Category I (Normal) = 0 NST: Reactive Position: N/A Station: N/A - Total Score Total Score (Pre): 15 - Level of Risk Level of Risk: High (10+) Physician Notification (Pre) - Physician Notified Physician Notified Date: 03/30/17 Physician Notified Time: 03:06 Physician/Practitioner Notifed:: Dr. Doe Spoke With: Dr. Doe New Order Received: Yes - Notification Comment Comment: admit for repeat section and lubal ligation due to SROM Disposition - Disposition OB Disposition: Admit, LDRP Suite I agree with the RN Medical Screening Exam: Yes Risk & Benefit of care provided described in d/c instruction: Yes Diagnosis: FULL-TERM AUDI ROM, ONSET LABOR WITHIN 24 HOURS OF RUPTURE
[2017-03-30] MEDS: diphenhydrAMINE 50 MG/ML 1 ML VIAL IVP PRN ×2 (07:38→17:03)
[2017-03-30] MEDS: SENNOSIDES-DOCUSATE SODIUM 1 EACH TAB PO SCH ×2 (13:05→21:08)
[2017-03-30] MEDS: ceFAZolin 3 GM in SODIUM CHLORIDE 0.9% 100 ML IVPB SCH ×2 (13:15→21:13)
[2017-03-30] MEDS: LACTATED RINGERS 1,000 ML IV SCH ×3 (13:16→22:21)
[2017-03-30] MEDS: KETOROLAC 30 MG/ML 1 ML VIAL IVP PRN (16:57)
[2017-03-31] MEDS: KETOROLAC 30 MG/ML 1 ML VIAL IVP PRN (00:17)
--- NOTE | 2017-03-31 06:28 | P.PNOBGPC ---
Subjective - Subjective Patient reports: Reports appetite normal, Reports voiding normally, Reports pain well controlled, Reports ambulating normally : doing well Objective - Vital Signs Latest vital signs: Vital Signs Temp Pulse Resp BP Pulse Ox 03/31/17 04:00 98.1 F 76 16 130/60 03/31/17 00:00 98.1 F 78 18 122/61 03/30/17 22:54 80 18 03/30/17 20:00 98.2 F 80 18 122/60 03/30/17 16:00 97.9 F 79 18 141/72 98 03/30/17 11:30 98.0 F 70 18 109/65 96 03/30/17 07:59 96.7 F L 54 L 18 118/60 98 03/30/17 06:44 97.7 F 54 L 18 116/59 Intake and Output 03/30/17 03/30/17 03/31/17 14:59 22:59 06:59 Intake Total 500 Output Total 600 800 Balance -600 -300 Intake: Oral 500 Output: Urine 600 800 Uretheral (Bocanegra) 600 Other: Voiding Method Indwelling Catheter # Voids 1 - Exam Lungs: bilateral: normal Chest: Normal S1, Normal S2 Extremities: Present: normal Abdomen: Present: normal appearance, soft. Absent: distention, tenderness Incision: Present: normal, dry, intact Uterus: Present: normal, firm Assessment and Plan Assessment: Post operative day #1. Patient is resting without complaints. Vital signs are stable and she is afebrile. Incision is intact and dry. CBC is pending. Patient is ambulating and urinating without difficulty. Plan today is to continue PP care, check a CBC, allow the patient to shower. Most likely discharge home tomorrow. (1) Gestational diabetes Current Visit: Yes Status: Acute Code(s): O24.419 - GESTATIONAL DIABETES MELLITUS IN , UNSP CONTROL SNOMED Code(s): 55935828 (2) Normal labor Current Visit: Yes Status: Acute Code(s): O80 - ENCOUNTER FOR FULL-TERM UNCOMPLICATED DELIVERY; Z37.9 - OUTCOME OF DELIVERY, UNSPECIFIED SNOMED Code(s ): 42659292 (3) Previous delivery affecting Current Visit: Yes Status: Acute Code(s): O34.219 - MATERNAL CARE FOR UNSP TYPE SCAR FROM PREVIOUS DEL SNOMED Code(s): 202548541 (4) Breech delivery Current Visit: Yes Status: Acute Code(s): O32.1XX0 - MATERNAL CARE FOR BREECH PRESENTATION, UNSP SNOMED Code(s): 686303825 (5) Family planning Current Visit: Yes Status: Acute Code(s): Z30.09 - ENCOUNTER FOR OTH GENERAL CNSL AND ADVICE ON CONTRACEPTION SNOMED Code(s): 04868626 (6) Obesity affecting in third trimester Current Visit: Yes Status: Acute Code(s): O99.213 - OBESITY COMPLICATING , THIRD TRIMESTER SNOMED Code(s): 246726337247
[2017-03-31] MEDS: Acetaminophen-Codeine 300-30mg TAB PO PRN ×2 (07:30→16:11)
[2017-03-31] MEDS: SENNOSIDES-DOCUSATE SODIUM 1 EACH TAB PO SCH ×2 (07:30→22:28)
[2017-03-31 08:03] LABS: Basophils % (A) 0 %; CH 25.3; CHCM 30.7; Eosinophils # (A) 0.1 k/uL (0-0.7); Eosinophils % (A) 1 %; HCT 30.1 % (34.0-46.0); HDW 3.12; HGB 9.2 gm/dL (11.4-16.0); Hypochromasia Marked; Luc # (Auto) 0.11; Luc % (Auto) 1; Lymphocytes # (A) 1.3 k/uL (1.0-4.8); Lymphocytes % (A) 14 %; MCH 25.3 pg (25.0-35.0); MCHC 30.6 g/dL (31.0-37.0); MCV 82.7 fL (80.0-100.0); Mean Platelet Volume 6.9; Monocytes # (A) 0.6 k/uL (0-1.0); Monocytes % (A) 7 %; Neutrophils # (A) 6.8 k/uL (1.3-7.7); Neutrophils % (A) 76 %; RBC 3.65 m/uL (3.80-5.40); RDW 15.4 % (11.5-15.5); WBC 8.9 k/uL (3.8-10.6); WBC (Perox) 8.91
--- NOTE | 2017-03-31 10:05 | P.PN ---
Progress Note - Text Progress Note Date: 03/31/17 32-year-old female status post postop day #1 patient had this intrathecal Duramorph patient was seen today she is sitting up in bed very comfortable no pain VS pain score is 0/10 now headache no itching had a good Sleep no complaints overnight
[2017-03-31] MEDS: IBUPROFEN 600 MG TAB PO PRN ×2 (13:00→22:28)
[2017-04-01] MEDS ORDERED: Acetaminophen-Codeine 300-30mg TAB ONE (02:00)
--- NOTE | 2017-04-01 06:30 | P.PNOBGPC ---
Subjective - Subjective Patient reports: Reports appetite normal, Reports voiding normally, Reports pain well controlled, Reports ambulating normally : doing well Objective - Vital Signs Latest vital signs: Vital Signs Temp Pulse Resp BP Pulse Ox 04/01/17 00:00 98.2 F 82 16 127/73 98 03/31/17 15:47 98.1 F 88 18 118/65 95 03/31/17 08:00 97.8 F 75 18 118/71 98 - Exam Lungs: bilateral: normal Chest: Normal S1, Normal S2 Extremities: Present: normal Abdomen: Present: normal appearance, soft. Absent: distention, tenderness Incision: Present: normal, dry, intact Uterus: Present: normal, firm - Labs Labs: Abnormal Lab Results - Last 24 Hours (Table) 03/31/17 Range/Units 07:38 RBC 3.65 L (3.80-5.40) m/uL Hgb 9.2 L (11.4-16.0) gm/dL Hct 30.1 L (34.0-46.0) % MCHC 30.6 L (31.0-37.0) g/dL Assessment and Plan (1) Gestational diabetes Narrative/Plan: Postoperative day #2. Patient is resting without complaints and wishes to go home. Vital signs are stable and she is afebrile. Uterus is firm nontender she 's having normal lochia. Incision is intact and dry. My impression this is a normal post course. Plan is to continue routine care discharge home later today. Current Visit: Yes Status: Acute Code(s): O24.419 - GESTATIONAL DIABETES MELLITUS IN , UNSP CONTROL SNOMED Code(s): 85180310 (2) Normal labor Current Visit: Yes Status: Acute Code(s): O80 - ENCOUNTER FOR FULL-TERM UNCOMPLICATED DELIVERY; Z37.9 - OUTCOME OF DELIVERY, UNSPECIFIED SNOMED Code(s ): 72406904 (3) Previous delivery affecting Current Visit: Yes Status: Acute Code(s): O34.219 - MATERNAL CARE FOR UNSP TYPE SCAR FROM PREVIOUS DEL SNOMED Code(s): 371651730 (4) Breech delivery Current Visit: Yes Status: Acute Code(s): O32.1XX0 - MATERNAL CARE FOR BREECH PRESENTATION, UNSP SNOMED Code(s): 448734189 (5) Family planning Current Visit: Yes Status: Acute Code(s): Z30.09 - ENCOUNTER FOR OTH GENERAL CNSL AND ADVICE ON CONTRACEPTION SNOMED Code(s): 03842029 (6) Obesity affecting in third trimester Current Visit: Yes Status: Acute Code(s): O99.213 - OBESITY COMPLICATING , THIRD TRIMESTER SNOMED Code(s): 238379280305
--- NOTE | 2017-04-01 06:32 | P.DS ---
Providers Date of admission: 03/30/17 03:09 Expected date of discharge: 04/01/17 Attending physician: Boris Doe Primary care physician: Stated None - Discharge Diagnosis(es) (1) Gestational diabetes Current Visit: Yes Status: Acute (2) Normal labor Current Visit: Yes Status: Acute (3) Previous delivery affecting Current Visit: Yes Status: Acute (4) Breech delivery Current Visit: Yes Status: Acute (5) Family planning Current Visit: Yes Status: Acute (6) Obesity affecting in third trimester Current Visit: Yes Status: Acute Hospital Course: Please see dictated H&P for intimate details of this patient's admission. Brief summary this is a pleasant 32-year-old 5 para 1 female 38-3/7 weeks gestation admitted to labor and delivery spontaneous rupture membranes. Patient previous section desires repeat and tubal ligation. Patient underwent above named surgeries. Please see dictated operative note. By postoperative day #2 patient's felt to be stable for discharge home follow up with me in 1 week. Procedures: Repeat low transverse section and bilateral partial salpingectomy. Patient Condition at Discharge: Good Plan - Discharge Summary New Discharge Prescriptions: New Acetaminophen-Codeine 300-30mg [Tylenol w/codeine #3] 1 - 2 each PO Q4HR PRN #30 tab PRN Reason: Mild Pain Ibuprofen [Motrin] 600 mg PO Q6HR PRN #40 tab PRN Reason: Mild Pain Or Fever >= 100.5 Discharge Medication List Acetaminophen-Codeine 300-30mg [Tylenol w/codeine #3] 1 - 2 each PO Q4HR PRN # 30 tab 04/01/17 [Rx] Ibuprofen [Motrin] 600 mg PO Q6HR PRN #40 tab 04/01/17 [Rx] Follow up Appointment(s)/Referral(s): Boris Doe MD [STAFF PHYSICIAN] - 04/08/17 1:30 pm (Patient also has visit on May 19 at 9:30am.) Patient Instructions/Handouts: (DC) Activity/Diet/Wound Care/Special Instructions: No intercourse or anything per vagina for 6 weeks. No heavy lifting or strenous activity for 6 weeks. Please call if any fever, chills, excessive vaginal bleeding and/or abdominal pain. Discharge Disposition: HOME SELF-CARE
[2017-04-01] MEDS: SENNOSIDES-DOCUSATE SODIUM 1 EACH TAB PO SCH (08:15)
[2017-04-01] MEDS: IBUPROFEN 600 MG TAB PO PRN (08:15)
[2017-04-01 09:56] VITALS: BP 114/63; PULSE 88; RESP 20; TEMP 98.9
== END 2017-04-01 13:35 | disposition home or self-care (01) | DRG 540 ==
LOC: FBPOP 02:40 → 4FBP 03:09
PROVIDERS: ADMIT Obstetrics & Gynecology; ATTEND Obstetrics & Gynecology
PROC: 0UB70ZZ Excision of Bilateral Fallopian Tubes, Open Approach (ICD-10-PCS; 2017-03-30)
PROC: 10D00Z1 Extraction of Products of Conception, Low, Open Approach (ICD-10-PCS; principal; 2017-03-30 04:03)
DX: O34.211 Maternal care for low transverse scar from previous cesarean delivery (principal); E66.01 Morbid (severe) obesity due to excess calories; O32.1XX0 Maternal care for breech presentation, not applicable or unspecified; O24.429 Gestational diabetes mellitus in childbirth, unspecified control; O99.214 Obesity complicating childbirth; Z37.0 Single live birth; Z3A.38 38 weeks gestation of pregnancy; Z88.0 Allergy status to penicillin
CPT/HCPCS: 59025; 83036; 84112; 85025; 86850; 86900; 86901; 88302; 88307; 99213

== ENCOUNTER → 2017-12-10 | Outpatient (CLI) | payer OTHER ==
[2017-12-10 14:27] VITALS: BP 115/80; PULSE 71; RESP 14; TEMP 98; BMI 42.2
--- NOTE | 2017-12-10 15:21 | P.HPBAR ---
Bariatric H&P - History & Physicial H&P Date: 12/10/17 History & Physicial: Visit/CC: gastric sleeve consult Patient initial contact: Initial weight: 110.722 kg Initial weight in pounds: 244.10 Height: 5 ft 3.75 in Initial BMI: 42.2 Last weight: Current weight: 110.722 kg Current weight in pounds: 244.10 Current BMI: 42.2 [place] body weight (based on NIH guidelines): 53.864 kg Excess body weight loss: 0.0% The patient is a 32 year-old F who presents for Bariatric Assessment. Patient presents to the clinic today for a new bariatric evaluation. She went to a seminar in September of this year. Patient suffers from mild reflux symptoms. Diet controlled hypercholesterolemia. Gestational diabetes recently. Denies DVT or dysphagia. Patient was a heavy is 280 in the past. She was as low as 220 after trying Adipex for a while. She has since stopped her Adipex. Patient is on a supervised weight loss program currently. Patient has an upcoming psychiatric evaluation in December. Review of Systems The patient denies any acute changes in vision or hearing, no dysphagia or odynophagia, no chest pain or shortness of breath, no dysuria or hematuria, no headache, no runny nose, no rectal bleeding or melena, no unexplained weight loss Past Medical History Past Medical History: No Reported History Additional Past Medical History / Comment(s): Gestational diabetes. History of Any Multi-Drug Resistant Organisms: None Reported Past Surgical History: Section Additional Past Surgical History / Comment(s): cesearean section x2 (2012, 2016) Past Anesthesia/Blood Transfusion Reactions: No Reported Reaction Additional Past Anesthesia/Blood Transfusion Reaction / Comm: No transfusion to date Past Psychological History: No Psychological Hx Reported Smoking Status: Current every day smoker Past Alcohol Use History: None Reported Additional Past Alcohol Use History / Comment(s): 1/2 pack/day since age 15 ( down from 1.5 packs/day). Past Drug Use History: None Reported - Past Family History Father Additional Family Medical History / Comment(s): crohns Surgical - Exam Vital Signs Temp Pulse Resp BP 98.0 F 71 14 115/80 12/10/17 14:23 12/10/17 14:23 12/10/17 14:23 07/26/18 14:23 Physical exam: General: Well-developed, well-nourished HEENT: Normocephalic, sclerae nonicteric Abdomen: Nontender, nondistended Extremities: No edema Neuro: Alert and oriented Bariatric Assessment & Plan (1) Morbid obesity Narrative/Plan: 32-year-old female with morbid obesity. Surgical risks and benefits discussed in detail with the patient. Patient remains interested in sleeve gastrectomy. The risks of bleeding, infection, stenosis, stricture, leak, abscess, fistula formation, peritonitis, poor weight loss, reflux, vomiting, conversion to an open procedure, aborting sleeve gastrectomy, ME, PE, DVT, and were discussed. The patient understands and wishes to proceed. Status: Acute Bariatric Checklist Checklist: Plan: Checklist: EGD: 1. Hiatal hernia: 2. H. Pylori: HgbA1c: Vitamin D: Smoking: Current every day smoker Primary care physician referral: marianela sandoval ([place]) Psychiatry clearance: Cardiology clearance: Sleep study: Diet journal: VTE risk score: VTE risk level: Rehab needs at discharge:
== END | disposition home or self-care (01) ==
LOC: BARWHC3 14:14
PROVIDERS: ATTEND Surgery
DX: E66.01 Morbid (severe) obesity due to excess calories (principal); F17.210 Nicotine dependence, cigarettes, uncomplicated; Z98.890 Other specified postprocedural states
CPT/HCPCS: 99211

== ENCOUNTER → 2018-01-15 | Day surgery (SDC) | payer OTHER ==
[2018-01-12 12:10] VITALS: BMI 40.9
[~2018-01-15] MED LIST: LACTATED RINGERS 1,000 ML IV SCH; PROPOFOL 10 MG/ML 20 ML VIAL IV ONE
[2018-01-15 11:29] VITALS: TEMP 97.8
--- NOTE | 2018-01-15 12:27 | P.GSHP ---
History of Present Illness H&P Date: 01/15/18 Chief Complaint: gerd Patient known to the office from the bariatric clinic. Here today for upper endoscopy as a preoperative evaluation. Does have mild reflux at times. No dysphagia. Past Medical History Past Medical History: No Reported History Additional Past Medical History / Comment(s): Gestational diabetes 2017. History of Any Multi-Drug Resistant Organisms: None Reported Past Surgical History: Section Additional Past Surgical History / Comment(s): Cesearean section x2 (2012, 2016) Past Anesthesia/Blood Transfusion Reactions: No Reported Reaction Additional Past Anesthesia/Blood Transfusion Reaction / Comment(s): No transfusion to date Smoking Status: Current every day smoker - Past Family History Father Additional Family Medical History / Comment(s): crohns Medications and Allergies Home Medications Medication Instructions Recorded Confirmed Type Varenicline [Chantix Continuing 1 mg PO BID 01/12/18 01/12/18 History Pack] Allergies Allergy/AdvReac Type Severity Reaction Status Date / Time Penicillins Allergy Unknown Verified 01/12/18 11:53 Childhood Surgical - Exam Vital Signs Temp Pulse Resp BP Pulse Ox 97.8 F 50 L 16 137/66 100 01/15/18 11:28 01/15/18 11:28 01/15/18 11:28 01/15/18 11:28 01/15/18 11:28 Physical exam: General: Well-developed, well-nourished HEENT: Normocephalic, sclerae nonicteric Abdomen: Nontender, nondistended Extremities: No edema Neuro: Alert and oriented Assessment and Plan (1) GERD (gastroesophageal reflux disease) Narrative/Plan: Upper endoscopy at this time. Current Visit: Yes Status: Acute Code(s): K21.9 - GASTRO-ESOPHAGEAL REFLUX DISEASE WITHOUT ESOPHAGITIS SNOMED Code(s): 989018754
--- NOTE | 2018-01-15 12:39 | P.PCN ---
Date of Procedure: 01/15/18 Procedure(s) Performed: Preoperative Dx: GERD, presurgical Postoperative Dx: Mild gastritis, small gastric polyp Procedure: EGD with Bx Anesthesia: Sedation Endoscopist: Dr. Bledsoe Specimens: Antrum, gastric polyp Endoscopic Procedure: The patient was on the endoscopy table in the left decubitus position. The Olympus gastroscope was inserted into the oropharynx and passed under direct visualization to the region of the third portion of the duodenum. From that point the scope was slowly withdrawn inspecting all surfaces carefully. There were no neoplastic inflammatory or polypoid lesions throughout the duodenum. The pylorus was widely patent. The stomach was carefully inspected. There was mild gastritis present. A biopsy of the antrum took place to rule out H. pylori. Retroflexion revealed a normal hiatus. A small gastric polyp in the fundus was seen and biopsies taken. The esophagus was then carefully examined. There were no neoplastic inflammatory or polypoid lesions throughout the visualized esophagus. The patient was then taken to the recovery room in stable condition per anesthesia guidelines. Recommendations: Await biopsy results. Follow bariatric clinic.
[2018-01-15 14:40] VITALS: BP 128/66; PULSE 50; RESP 18
== END | disposition home or self-care (01) ==
LOC: ORWHC2ENDO 11:07
PROVIDERS: ATTEND Surgery
DX: Z01.818 Encounter for other preprocedural examination (principal); K21.9 Gastro-esophageal reflux disease without esophagitis; K31.7 Polyp of stomach and duodenum; K29.70 Gastritis, unspecified, without bleeding; K31.9 Disease of stomach and duodenum, unspecified; E66.9 Obesity, unspecified; Z68.41 Body mass index [BMI] 40.0-44.9, adult; F17.210 Nicotine dependence, cigarettes, uncomplicated; Z88.0 Allergy status to penicillin; Z79.899 Other long term (current) drug therapy; Z83.79 Family history of other diseases of the digestive system
CPT/HCPCS: 43239; 81025; 88305

== ENCOUNTER → 2018-02-09 | Outpatient (CLI) | payer OTHER ==
[2018-02-09 15:31] VITALS: BP 130/61; PULSE 60; TEMP 97; BMI 42.6
--- NOTE | 2018-02-09 16:11 | P.BASOAP ---
Subjective Progress Note Date: 02/09/18 Principal diagnosis: Morbid obesity Patient seen for preoperative evaluation. He had recent upper endoscopy which was normal. She has quit smoking now. She needs an additional 9 pounds of weight loss for approval for surgery. Objective - Vital Signs Vital signs: Vital Signs Temp 97 F L 02/09/18 15:13 Pulse 60 02/09/18 15:13 Resp BP 130/61 02/09/18 15:13 Pulse Ox Intake & Output 02/08/18 02/09/18 02/09/18 18:59 06:59 18:59 Weight 109.27 kg - Exam Abdomen: Soft, nontender, nondistended Assessment/Plan (1) Morbid obesity Narrative/Plan: Patient doing well today. Patient requires additional weight loss prior to approve for surgery. Continue smoking cessation. Follow-up visit for weigh-in in 6 weeks. Plan: Date: 02/09/18 Initial Weight: 110.722 kg Initial BMI: 43.2 Current Weight: 109.27 kg Current BMI: 42.6 Type of Surgery: Total Volume in Band: Previous Volume: Volume Removed: Volume Added: Band Size:
== END | disposition home or self-care (01) ==
LOC: BARWHC3 14:29
PROVIDERS: ATTEND Surgery
DX: E66.01 Morbid (severe) obesity due to excess calories (principal); Z68.41 Body mass index [BMI] 40.0-44.9, adult
CPT/HCPCS: 99211

== ENCOUNTER → 2018-03-01 | Outpatient (CLI) | payer OTHER ==
[2018-03-01 13:09] VITALS: BMI 53.8
== END | disposition home or self-care (01) ==
LOC: BARWHC3 08:20
PROVIDERS: ATTEND Surgery
DX: E66.01 Morbid (severe) obesity due to excess calories (principal); Z68.43 Body mass index [BMI] 50.0-59.9, adult
CPT/HCPCS: 97804

== ENCOUNTER → 2018-07-14 | Outpatient (CLI) | payer OTHER ==
--- NOTE | 2018-07-14 14:40 | MM ---
Reason for exam: screening (asymptomatic). Baseline mammogram. History: Family history of breast cancer in aunt at age 40. Physical Findings: Nurse did not find any significant physical abnormalities on exam. MG Screening Mammo w CAD Bilateral CC and MLO view(s) were taken. There are scattered fibroglandular densities. Benign appearing calcifications in the right breast. No significant new findings when compared with previous films. These results were verbally communicated with the patient and result sheet given to the patient on 07/14/18. ASSESSMENT: Benign, BI-RAD 2 RECOMMENDATION: Routine screening mammogram of both breasts in 1 year.
== END | disposition home or self-care (01) ==
LOC: RADMAMWWP 13:50
PROVIDERS: ATTEND Internal Medicine
DX: Z12.31 Encounter for screening mammogram for malignant neoplasm of breast (principal)
CPT/HCPCS: 77067

== ENCOUNTER → 2018-08-24 | Outpatient (CLI) | payer OTHER ==
[2018-08-24 14:00] VITALS: BP 118/68; PULSE 56; RESP 16; TEMP 97.9; BMI 41.1
--- NOTE | 2018-08-24 16:29 | P.BASOAP ---
Subjective Progress Note Date: 08/24/18 Principal diagnosis: Morbid obesity Patient returns for reevaluation. Last seen by myself in late December. Patient underwent upper endoscopy at that time showing gastritis and a small gastric polyp. Patient has lost an additional 3 pounds. She has quit tobacco. Her psych evaluation was completed. She is interested in proceeding with sleeve gastrectomy. Objective - Vital Signs Vital signs: Vital Signs Temp 97.9 F 08/24/18 13:57 Pulse 56 L 08/24/18 13:57 Resp 16 08/24/18 13:57 BP 118/68 08/24/18 13:57 Pulse Ox Intake & Output 08/23/18 08/24/18 08/24/18 18:59 06:59 18:59 Weight 107.955 kg - Exam Abdomen: Soft, nontender, nondistended Assessment/Plan (1) Morbid obesity Narrative/Plan: Patient I discussed once again the options of bariatric surgery. Discussion regarding sleeve gastrectomy and bypass reviewed. Advantages and disadvantages of both procedures and the associated complications reviewed. The preoperative consent form was reviewed as well. Patient remains interested in sleeve gastrectomy. Will schedule in the near future. Plan: Date: 08/24/18 Initial Weight: 110.722 kg Initial BMI: 42.2 Current Weight: 107.955 kg Current BMI: 41.1 Type of Surgery: Total Volume in Band: Previous Volume: Volume Removed: Volume Added: Band Size:
== END | disposition home or self-care (01) ==
LOC: BARWHC3 13:30
PROVIDERS: ATTEND Surgery
DX: E66.01 Morbid (severe) obesity due to excess calories (principal); Z87.891 Personal history of nicotine dependence; Z68.41 Body mass index [BMI] 40.0-44.9, adult
CPT/HCPCS: 99211

== ENCOUNTER → 2018-09-16 | Outpatient (CLI) | payer OTHER | LOC: LABWHC1 16:03 | PROVIDERS: ATTEND Surgery | DX: Z71.51 Drug abuse counseling and surveillance of drug abuser (principal) | CPT/HCPCS: 80323 ==

== ENCOUNTER → 2018-10-21 | Outpatient (CLI) | payer OTHER | END | disposition home or self-care (01) | LOC: LABWHC1 13:31 | PROVIDERS: ATTEND Surgery | DX: F17.200 Nicotine dependence, unspecified, uncomplicated (principal) | CPT/HCPCS: 80323 ==

== ENCOUNTER → 2019-03-22 | Outpatient (CLI) | payer OTHER ==
[2019-03-22 11:59] LABS: Basophils % (A) 0 %; Eosinophils # (A) 0.1 k/uL (0-0.7); Eosinophils % (A) 2 %; HCT 30.9 % (34.0-46.0); HGB 9.1 gm/dL (11.4-16.0); Hypochromasia Marked; Lymphocytes # (A) 1.6 k/uL (1.0-4.8); Lymphocytes % (A) 31 %; MCH 21.6 pg (25.0-35.0); MCHC 29.5 g/dL (31.0-37.0); MCV 73.3 fL (80.0-100.0); Mean Platelet Volume 5.8; Microcytosis Slight; Monocytes # (A) 0.3 k/uL (0-1.0); Monocytes % (A) 6 %; Neutrophils # (A) 3.2 k/uL (1.3-7.7); Neutrophils % (A) 59 %; Platelet Count 257 k/uL (150-450); RBC 4.22 m/uL (3.80-5.40); RDW 15.3 % (11.5-15.5); WBC 5.4 k/uL (3.8-10.6)
[2019-03-22 19:56] LABS: ALT 16 U/L (8-44); AST 19 U/L (13-35); African American GFR (CKD) 135.9 (60.0-200.0); Albumin/Globulin Ratio 2.15 (1.60-3.17); Alkaline Phosphatase 88 U/L (41-126); Calcium 8.8 mg/dL (8.7-10.3); Carbon Dioxide 24.2 mmol/L (21.6-31.8); Chloride 107 mmol/L (96-109); Glucose 92 mg/dL (70-110); Potassium 4.3 mmol/L (3.5-5.5); Sodium 139 mmol/L (135-145); Total Bilirubin 0.3 mg/dL (0.2-1.2); Total Protein 6.3 g/dL (6.2-8.2)
[2019-03-22 19:57] LABS: Bilirubin, Conjugated <0.20 mg/dL (0.20-0.40)
[2019-03-22 22:00] LABS: Hemoglobin A1C 5.1 % (4.0-6.0)
== END | disposition home or self-care (01) ==
LOC: LABWHC1 10:30
PROVIDERS: ATTEND Surgery Surgical Critical Care
DX: Z01.812 Encounter for preprocedural laboratory examination (principal)
CPT/HCPCS: 36415; 80053; 82248; 83036; 84443; 85025

== ENCOUNTER → 2019-04-19 | Outpatient (CLI) | payer OTHER ==
[2019-04-19 13:29] VITALS: BP 123/80; PULSE 70; RESP 16; TEMP 97.8; BMI 43.7
--- NOTE | 2019-04-19 14:39 | P.BASOAP ---
Subjective Progress Note Date: 04/19/19 Principal diagnosis: Morbid obesity Patient known to our service. Was being worked up for sleeve gastrectomy earlier this spring. She was last seen in August. Underwent EGD December 2017. Patient had mild gastritis and a small polyp at that time. Patient states that her nicotine test was positive secondary to secondhand smoke. In the process of having that rechecked she missed several appointments with her primary care physician had to restart her supervised weight loss. She has a psych evaluation scheduled for next week. She is interested in scheduling her sleeve gastrectomy soon. She takes Celexa now which is the only new medication. Otherwise no change in her previous history and physical. Objective - Vital Signs Vital signs: Vital Signs Temp 97.8 F 04/19/19 13:26 Pulse 70 04/19/19 13:26 Resp 16 04/19/19 13:26 BP 123/80 04/19/19 13:26 Pulse Ox Intake & Output 04/18/19 04/19/19 04/19/19 18:59 06:59 18:59 Weight 114.759 kg - Exam Abdomen: Soft, nontender, nondistended Assessment/Plan (1) Morbid obesity Narrative/Plan: Risks and benefits of the sleeve gastrectomy discussed once again with the patient. She remains interested in proceeding with surgical intervention for her morbid obesity. We'll proceed with sleeve gastrectomy in late May/June. No need to repeat EGD at this time. Await upcoming psych evaluation. Plan: Date: 04/19/19 Initial Weight: 110.722 kg Initial BMI: 42.2 Current Weight: 114.759 kg Current BMI: 43.7 Type of Surgery: Total Volume in Band: Previous Volume: Volume Removed: Volume Added: Band Size:
== END | disposition home or self-care (01) ==
LOC: BARWHC3 13:05
PROVIDERS: ATTEND Surgery
DX: E66.01 Morbid (severe) obesity due to excess calories (principal); Z68.41 Body mass index [BMI] 40.0-44.9, adult
CPT/HCPCS: 99211

== ENCOUNTER → 2019-04-27 | Outpatient (CLI) | payer OTHER | LOC: LABWHC1 10:57 | PROVIDERS: ATTEND Surgery | DX: F17.200 Nicotine dependence, unspecified, uncomplicated (principal) | CPT/HCPCS: 80323 ==

== ENCOUNTER → 2019-06-18 | Outpatient (CLI) | payer OTHER ==
[2019-06-18 11:46] LABS: Basophils % (A) 1 %; Eosinophils # (A) 0.1 k/uL (0-0.7); Eosinophils % (A) 2 %; HGB 8.5 gm/dL (11.4-16.0); Hypochromasia Marked; Lymphocytes # (A) 1.5 k/uL (1.0-4.8); Lymphocytes % (A) 35 %; MCH 20.3 pg (25.0-35.0); MCHC 28.5 g/dL (31.0-37.0); MCV 71.2 fL (80.0-100.0); Mean Platelet Volume 6.8; Microcytosis Moderate; Monocytes # (A) 0.3 k/uL (0-1.0); Monocytes % (A) 7 %; Neutrophils # (A) 2.2 k/uL (1.3-7.7); Neutrophils % (A) 53 %; Platelet Count 246 k/uL (150-450); RBC 4.21 m/uL (3.80-5.40); RDW 15.8 % (11.5-15.5); WBC 4.2 k/uL (3.8-10.6)
[2019-06-18 12:04] LABS: ALT 12 U/L (4-34); AST 17 U/L (14-36); African American GFR (CKD) >90 (>60 ml/min/1.73 sqM); Albumin 3.8 g/dL (3.5-5.0); Alkaline Phosphatase 84 U/L (38-126); Anion Gap 6 mmol/L; Blood Urea Nitrogen 19 mg/dL (7-17); Calcium 8.9 mg/dL (8.4-10.2); Carbon Dioxide 26 mmol/L (22-30); Chloride 107 mmol/L (98-107); Glucose 96 mg/dL (74-99); Non-African American GFR(CKD) >90 (>60 ml/min/1.73 sqM); Potassium 4.5 mmol/L (3.5-5.1); Sodium 139 mmol/L (137-145); Total Bilirubin 0.4 mg/dL (0.2-1.3); Total Protein 6.7 g/dL (6.3-8.2)
== END | disposition home or self-care (01) ==
LOC: LABPAT 10:49
PROVIDERS: ATTEND Surgery
DX: Z01.818 Encounter for other preprocedural examination (principal); Z01.812 Encounter for preprocedural laboratory examination
CPT/HCPCS: 36415; 80053; 85025; 93005

== ENCOUNTER → 2019-08-02 | Outpatient (CLI) | payer OTHER ==
[2019-08-02 16:15] LABS: ALT 15 U/L (4-34); AST 20 U/L (14-36); African American GFR (CKD) >90 (>60 ml/min/1.73 sqM); Albumin 4.4 g/dL (3.5-5.0); Alkaline Phosphatase 87 U/L (38-126); Anion Gap 9 mmol/L; Blood Urea Nitrogen 17 mg/dL (7-17); Calcium 9.2 mg/dL (8.4-10.2); Carbon Dioxide 26 mmol/L (22-30); Chloride 102 mmol/L (98-107); Glucose 93 mg/dL (74-99); Non-African American GFR(CKD) >90 (>60 ml/min/1.73 sqM); Sodium 137 mmol/L (137-145); Total Bilirubin 0.5 mg/dL (0.2-1.3); Total Protein 7.4 g/dL (6.3-8.2)
[2019-08-02 16:30] LABS: Anisocytosis Slight; Basophils % (A) 0 %; Eosinophils % (A) 1 %; HCT 37.8 % (34.0-46.0); HGB 11.2 gm/dL (11.4-16.0); Hypochromasia Marked; Lymphocytes % (A) 18 %; MCH 22.7 pg (25.0-35.0); MCHC 29.6 g/dL (31.0-37.0); Mean Platelet Volume 7.3; Microcytosis Moderate; Monocytes # (A) 0.4 k/uL (0-1.0); Monocytes % (A) 7 %; Neutrophils # (A) 3.9 k/uL (1.3-7.7); Neutrophils % (A) 72 %; Platelet Count 214 k/uL (150-450); RBC 4.92 m/uL (3.80-5.40); RDW 18.5 % (11.5-15.5); WBC 5.4 k/uL (3.8-10.6)
[2019-08-02 16:33] LABS: MCV 76.7 fL (80.0-100.0)
[2019-08-02 23:42] LABS: Iron 26 ug/dL (50-170)
== END | disposition home or self-care (01) ==
LOC: LABPAT 14:44
PROVIDERS: ATTEND Surgery
DX: Z01.818 Encounter for other preprocedural examination (principal)
CPT/HCPCS: 36415; 80053; 83540; 85025

== ENCOUNTER → 2019-10-07 | Outpatient (CLI) | payer OTHER ==
[2019-10-07 09:14] VITALS: BP 119/81; PULSE 64; RESP 20; TEMP 98.2; BMI 43.6
--- NOTE | 2019-11-24 07:52 | P.BASOAP ---
Subjective Progress Note Date: 10/07/19 Principal diagnosis: Morbid obesity Patient returns today for evaluation. Scheduled for sleeve gastrectomy on 10/16. He has been seen by hematology. Hemoglobin up to 11.2 with oral iron supplementation. Never did require IV iron infusion. No rectal bleeding or melena. Still with heavier menses. EGD performed 2018 showed gastritis and a small polyp. Objective - Exam Abdomen: Soft, nontender, nondistended Assessment/Plan (1) Morbid obesity Narrative/Plan: Patient doing well at this time. Hemoglobin increased appropriately with iron supplementation. We'll proceed with sleeve gastrectomy 10/16. The risks of bleeding, infection, stenosis, stricture, leak, abscess, fistula formation, peritonitis, poor weight loss, reflux, vomiting, conversion to an open procedu re, aborting sleeve gastrectomy, MD, PE, DVT, and were discussed. The patient understands and wishes to proceed. Plan: Date: Initial Weight: 110.722 kg Initial BMI: Current Weight: Current BMI: Type of Surgery: Total Volume in Band: Previous Volume: Volume Removed: Volume Added: Band Size:
== END | disposition home or self-care (01) ==
LOC: BARWHC3 09:06
PROVIDERS: ATTEND Surgery
DX: E66.01 Morbid (severe) obesity due to excess calories (principal); K29.70 Gastritis, unspecified, without bleeding; Z68.41 Body mass index [BMI] 40.0-44.9, adult
CPT/HCPCS: 80053; 85025; 99211

== ENCOUNTER → 2019-10-07 | Outpatient (CLI) | payer OTHER ==
--- NOTE | 2019-10-07 10:31 | P.BASOAP ---
Subjective Progress Note Date: 10/07/19 Principal diagnosis: Morbid obesity Patient returns today for evaluation. Scheduled for sleeve gastrectomy on 10/16. He has been seen by hematology. Hemoglobin up to 11.2 with oral iron supplementation. Never did require IV iron infusion. No rectal bleeding or melena. Still with heavier menses. EGD performed 2018 showed gastritis and a small polyp. Objective - Exam Abdomen: Soft, nontender, nondistended Assessment/Plan (1) Morbid obesity Narrative/Plan: Patient doing well at this time. Hemoglobin increased appropriately with iron supplementation. We'll proceed with sleeve gastrectomy 10/16. The risks of bleeding, infection, stenosis, stricture, leak, abscess, fistula formation, peritonitis, poor weight loss, reflux, vomiting, conversion to an open procedu re, aborting sleeve gastrectomy, MT, PE, DVT, and were discussed. The patient understands and wishes to proceed. Plan: Date: Initial Weight: 110.722 kg Initial BMI: Current Weight: Current BMI: Type of Surgery: Total Volume in Band: Previous Volume: Volume Removed: Volume Added: Band Size:
[2019-10-07 12:15] LABS: Anisocytosis Slight; Basophils % (A) 1 %; Eosinophils # (A) 0.1 k/uL (0-0.7); Eosinophils % (A) 1 %; HCT 38.5 % (34.0-46.0); HGB 11.7 gm/dL (11.4-16.0); Hypochromasia Moderate; Lymphocytes # (A) 1.6 k/uL (1.0-4.8); Lymphocytes % (A) 30 %; MCH 23.9 pg (25.0-35.0); MCHC 30.5 g/dL (31.0-37.0); MCV 78.5 fL (80.0-100.0); Mean Platelet Volume 7.7; Microcytosis Slight; Monocytes # (A) 0.3 k/uL (0-1.0); Monocytes % (A) 6 %; Neutrophils # (A) 3.2 k/uL (1.3-7.7); Neutrophils % (A) 60 %; Platelet Count 230 k/uL (150-450); RBC 4.91 m/uL (3.80-5.40); RDW 16.1 % (11.5-15.5); WBC 5.3 k/uL (3.8-10.6)
[2019-10-07 12:24] LABS: ALT 16 U/L (4-34); AST 20 U/L (14-36); African American GFR (CKD) >90 (>60 ml/min/1.73 sqM); Albumin 4.5 g/dL (3.5-5.0); Alkaline Phosphatase 95 U/L (38-126); Anion Gap 10 mmol/L; Blood Urea Nitrogen 18 mg/dL (7-17); Calcium 9.3 mg/dL (8.4-10.2); Carbon Dioxide 23 mmol/L (22-30); Chloride 104 mmol/L (98-107); Glucose 96 mg/dL (74-99); Non-African American GFR(CKD) >90 (>60 ml/min/1.73 sqM); Potassium 4.3 mmol/L (3.5-5.1); Sodium 137 mmol/L (137-145); Total Bilirubin 0.3 mg/dL (0.2-1.3); Total Protein 7.7 g/dL (6.3-8.2)
== END | disposition home or self-care (01) ==
LOC: LABPAT 10:06
PROVIDERS: ATTEND Surgery
DX: Z01.818 Encounter for other preprocedural examination (principal)
CPT/HCPCS: 80053; 85025

== ENCOUNTER → 2019-10-14 | Outpatient (CLI) | payer OTHER | END | disposition home or self-care (01) | LOC: LABWHC1 09:12 | PROVIDERS: ATTEND Surgery | DX: Z11.59 Encounter for screening for other viral diseases (principal) ==

== ENCOUNTER 2019-10-17 07:45 | Inpatient (IN) | payer OTHER ==
[~2019-10-17 07:45] MED LIST changes: +ENOXAPARIN 40 MG/0.4 ML SYRINGE SQ ONE; -LACTATED RINGERS 1,000 ML IV SCH; -PROPOFOL 10 MG/ML 20 ML VIAL IV ONE
[2019-10-17] MEDS ORDERED: DEXAMETHASONE SOD PHOSPHATE 10 MG/ML 1 ML VIAL IV ONE (08:17)
[2019-10-17] MEDS ORDERED: ONDANSETRON 4 MG/2 ML VIAL IVP ONE ×2 (08:17→14:10)
--- NOTE | 2019-10-17 09:34 | P.GSHP ---
History of Present Illness H&P Date: 10/17/19 Chief Complaint: Morbid obesity 34-year-old female here today for elective sleeve gastrectomy. Patient initially seen in November 2017 for bariatric consultation. Patient with history of mild reflux, diet controlled hypercholesterolemia, gestational diabetes. Patient's heaviest weight was 280 pounds. BMI at the time of evaluation was 42.2. No history of DVT or dysphagia. Patient had an EGD late 2018 showing gastritis. No hiatal hernia described. Was found to have significant iron deficiency anemia. Patient with heavy menses. Patient was seen by hematology and cleared for the procedure. She was treated with oral iron supplementation with good response. Previous smoker. She has since quit. Past Medical History Past Medical History: No Reported History Additional Past Medical History / Comment(s): Gestational diabetes 2016. History of Any Multi-Drug Resistant Organisms: None Reported Past Surgical History: Section Additional Past Surgical History / Comment(s): Cesearean section x2 (2012, 2016) Past Anesthesia/Blood Transfusion Reactions: No Reported Reaction Additional Past Anesthesia/Blood Transfusion Reaction / Comment(s): No transfusion to date Smoking Status: Former smoker - Past Family History Father Additional Family Medical History / Comment(s): crohns Medications and Allergies Home Medications Medication Instructions Recorded Confirmed Type No Known Home Medications 10/13/19 10/13/19 History Allergies Allergy/AdvReac Type Severity Reaction Status Date / Time Penicillins Allergy Unknown Verified 10/13/19 09:09 Childhood Surgical - Exam Physical exam: General: Well-developed, well-nourished HEENT: Normocephalic, sclerae nonicteric Abdomen: Nontender, nondistended Extremities: No edema Neuro: Alert and oriented Assessment and Plan (1) Morbid obesity Narrative/Plan: 34-year-old female with morbid obesity and associated comorbidities. We'll proceed with elective sleeve gastrectomy at this time. The risks of bleeding, infection, stenosis, stricture, leak, abscess, fistula formation, peritonitis, poor weight loss, reflux, vomiting, conversion to an open procedure, aborting sleeve gastrectomy, PA, PE, DVT, and were discussed. The patient understands and wishes to proceed. Current Visit: No Status: Acute Code(s): E66.01 - MORBID (SEVERE) OBESITY DUE TO EXCESS CALORIES SNOMED Code(s): 925080349
[2019-10-17] MEDS: LACTATED RINGERS 1,000 ML IV SCH (10:15)
[2019-10-17] MEDS ORDERED: LIDOCAINE 1% (10MG/ML) FOR IV START INTRADERMA ONE (10:15)
[2019-10-17] MEDS ORDERED: NEOSTIGMINE 1 MG/ML 10 ML VIAL ONE (12:05)
[2019-10-17] MEDS ORDERED: MIDAZOLAM 2 MG/2 ML VIAL ONE (12:05)
[2019-10-17] MEDS ORDERED: SUCCINYLCHOLINE CHLORIDE 100 MG/5 ML SYR IV ONE (12:05)
[2019-10-17] MEDS ORDERED: LIDOCAINE 1% INJ 10MG/ML (20 ML MDV) ONE (12:05)
[2019-10-17] MEDS ORDERED: KETAMINE 10 MG/ML 20 ML VIAL ONE (12:05)
[2019-10-17] MEDS ORDERED: ROCURONIUM BROMIDE 10 MG/ML 5 ML VIAL IV ONE (12:05)
[2019-10-17] MEDS ORDERED: PROPOFOL 10 MG/ML 20 ML VIAL IV ONE (12:05)
[2019-10-17] MEDS ORDERED: HYDROmorphone (PF) 1 MG/ML ONE (12:05)
[2019-10-17] MEDS ORDERED: fentaNYL (PF) 50 MCG/ML 2 ML AMP ONE (12:05)
[2019-10-17] MEDS ORDERED: GLYCOPYRROLATE 0.2 MG/ML 2 ML VIAL ONE (12:05)
[2019-10-17] MEDS ORDERED: BUPIVACAINE (PF) 0.25% 30 ML VIAL SQ ONE (13:02)
[2019-10-17] MEDS ORDERED: LACTATED RINGERS 1,000 ML IV ONE (13:34)
[2019-10-17] MEDS ORDERED: NALOXONE 0.4 MG/ML 1 ML VIAL IV PRN (13:53)
[2019-10-17] MEDS ORDERED: SIMETHICONE 40 MG/0.6 ML DROPS 2,000 MG/30 ML BOTTLE PO PRN (13:53)
[2019-10-17] MEDS ORDERED: diphenhydrAMINE 50 MG/ML 1 ML VIAL IVP PRN (13:53)
--- NOTE | 2019-10-17 13:57 | P.OP ---
Date of Procedure: 10/17/19 Procedure(s) Performed: PREOPERATIVE DIAGNOSIS: Morbid obesity, GERD, gestational diabetes POSTOPERATIVE DIAGNOSIS: Same PROCEDURE: Laparoscopic sleeve gastrectomy SURGEON: Rakan EBL: Minimal ANESTHESIA: General COMPLICATIONS: None OPERATIVE PROCEDURE: Patient was placed in the operating table in the supine position. She was placed under general anesthesia at that time. The abdomen was prepped and draped in sterile fashion after the patient was placed in lithotomy. A 5 mm optical trocar was used to enter the abdominal cavity in the left upper quadrant. Insufflation took place to 15 millimeters mercury. An additional right subxiphoid 5 mm trocar was then placed under direct visualization and then removed. 2 additional 5 mm trochars were placed in the right upper quadrant and left upper quadrant under direct visualization and a 15 mm trocar in the supraumbilical location. The liver was retracted using a medium Aye liver retractor through the right subxiphoid trocar site. The hiatus was inspected. The patient had no visible hiatal hernia At that point I moved to the mid aspect of the greater curvature the stomach. The short gastric vasculature was divided using a LigaSure device proximally. I then switched and divided the short gastrics distally to a 3-4 cm from the pylorus. The dissection took place up to the left diaphragmatic crura at that point. The posterior short gastrics were likewise divided using the LigaSure device. Once the stomach was fully mobilized the blunt tipped 40-Georgian bougie dilator was advanced into the stomach and advanced all the way to the prepyloric location. A black echelon 60 stapler was utilized and fired tangentially across the antrum taking care to avoid narrowing at the incisura angularis. Subsequent firings of the stapler took place. A total of 4 green echelon 60 staplers with seam guard took place proximally staying on the outer edge of our dilator. The oral gastric tube was reinserted. The stomach was insufflated with approximately 100 mL of methylene blue. No evidence of leak or obstruction was seen. The stomach remnant was removed from the 15 mm trocar site without difficulty. The fascia at the 15 more site was closed using interrupted 0 Vicryl sutures with the laparoscopic suture passer and Дмитрий Adelaida technique. The insufflation was evacuated. The skin at all 5 incisions were closed using 4-0 Monocryl sutures. Skin glue was then applied. DISPOSITION: Stable to recovery room
[2019-10-17] MEDS: HYDROmorphone 0.5 MG/0.5 ML SYRINGE IVP PRN ×2 (14:15→14:21)
[2019-10-17] MEDS ORDERED: diphenhydrAMINE 50 MG/ML 1 ML VIAL IVP ONE (14:29)
[2019-10-17] MEDS ORDERED: SCOPOLAMINE 1.5MG/72HR PATCH TRANSDERM ONE (15:11)
[2019-10-17] MEDS: ALBUTEROL NEBULIZED 2.5 MG/3 ML INHALATION SCH ×2 (15:48→19:28)
[2019-10-17] MEDS ORDERED: ACETAMINOPHEN IV (For NPO) 1,000 MG in EMPTY BAG 1 BAG IVPB ONE (16:00)
[2019-10-17] MEDS: HYOSCYAMINE ORAL DROPS 1.875 MG/15 ML BOTTLE PO PRN (17:14)
[2019-10-17] MEDS: 0.9% NACL WITH KCL 20 MEQ/L 1,000 ML IV SCH (18:10)
--- NOTE | 2019-10-17 19:01 | CONS ---
CONSULTATION DATE OF SERVICE: 10/17/2019 REASON FOR CONSULTATION: Advice regarding history of diabetes and other multiple medical problems, requested by Dr. Bledsoe. HISTORY OF PRESENT ILLNESS: This 34-year-old woman with a past medical history of gestational diabetes, history of nicotine dependence, section, being followed by Dr. Gibbs in the outpatient setting, underwent laparoscopic sleeve gastrectomy for morbid obesity, GERD, gestational diabetes by Dr. Bledsoe. The patient is being closely monitored at this time. The patient is slightly drowsy from the surgery and has some nausea. There is no history of any fever, rigor or chills. No history of headache, loss of consciousness, seizures. PAST MEDICAL HISTORY: History of gestational diabetes, history of section, history of nicotine dependence. HOME MEDICATIONS: None. ALLERGIES: PENICILLIN. FAMILY HISTORY: History of Crohn's in the family. SOCIAL HISTORY: Previous history of smoking. No current smoking or alcohol intake. REVIEW OF SYSTEMS: Review of systems could not be taken; the patient is postoperatively. PHYSICAL EXAMINATION: Pulse is 57, blood pressure 131/60, respirations 16, temperature normal, pulse ox 100% on 2 L. HEENT: Conjunctivae normal. Oral mucosa moist. NECK: No jugular venous distention. No carotid bruit. No lymph node enlargement. CARDIOVASCULAR SYSTEM: S1, S2 muffled. RESPIRATORY SYSTEM: Breath sounds diminished at the bases. No rhonchi. No crackles. ABDOMEN: Soft. Status post surgery. No guarding. No rigidity. LEGS: No edema. No swelling. NERVOUS SYSTEM: Higher functions as mentioned earlier. Moves all 4 limbs. No focal motor or sensory deficit. LYMPHATICS: No lymph node palpable in neck, axillae or groin. SKIN: No ulcer, rash, bleeding. JOINTS: No active deforming arthropathy. LABS: Labs at this time are pending. The previous preoperative labs showed WBC 11.7. The coags were normal. The chemistry was also within normal limits. ASSESSMENT: 1. Status post laparoscopic sleeve gastrectomy for morbid obesity, gastroesophageal reflux disease, gestational diabetes mellitus, type 2. 2. History of gastroesophageal reflux disease. 3. Gestational diabetes. 4. Morbid obesity with with body mass index of 41.9. 5. section. 6. Remote history of nicotine dependence. 7. FULL CODE. RECOMMENDATIONS AND DISCUSSION: In this 34-year-old woman who presented after surgery, at this time I recommend to continue the current medications, continue with symptomatic treatment. Otherwise, incentive spirometry. DVT prophylaxis. Proton pump inhibitors. The heart rate is 57. Could be sinus bradycardia. We will continue to monitor. Baseline labs are all within normal limits. We will continue to follow the patient closely with you. Patient may be asked to follow with Dr. Gibbs closely after discharge. Thank you, Dr. Bledsoe, for letting us participate in the care of this patient. MMODL / IJN: [id number] /
[2019-10-17] MEDS: ONDANSETRON 4 MG/2 ML VIAL IVP PRN (20:25)
[2019-10-17] MEDS: HYDROmorphone 1 MG/ML 1 ML SYRINGE IVP PRN (20:29)
[2019-10-18] MEDS: 0.9% NACL WITH KCL 20 MEQ/L 1,000 ML IV SCH ×2 (00:50→06:45)
[2019-10-18] MEDS: HYOSCYAMINE ORAL DROPS 1.875 MG/15 ML BOTTLE PO PRN (01:32)
[2019-10-18] MEDS: ENOXAPARIN 40 MG/0.4 ML SYRINGE SQ SCH ×3 (01:32→23:01)
[2019-10-18] MEDS: HYDROmorphone 1 MG/ML 1 ML SYRINGE IVP PRN ×3 (04:15→18:55)
[2019-10-18] MEDS: ONDANSETRON 4 MG/2 ML VIAL IVP PRN ×2 (04:15→14:38)
[2019-10-18] MEDS: LACTATED RINGERS 1,000 ML IV SCH (06:46)
[2019-10-18 07:07] LABS: Basophils % (A) 0 %; Eosinophils % (A) 0 %; HCT 35.1 % (34.0-46.0); HGB 10.8 gm/dL (11.4-16.0); Hypochromasia Moderate; Lymphocytes # (A) 1.3 k/uL (1.0-4.8); Lymphocytes % (A) 15 %; MCHC 30.6 g/dL (31.0-37.0); MCV 78.4 fL (80.0-100.0); Mean Platelet Volume 7.6; Monocytes # (A) 0.4 k/uL (0-1.0); Monocytes % (A) 5 %; Neutrophils # (A) 6.7 k/uL (1.3-7.7); Neutrophils % (A) 79 %; Platelet Count 231 k/uL (150-450); RBC 4.49 m/uL (3.80-5.40); WBC 8.6 k/uL (3.8-10.6)
[2019-10-18 07:25] LABS: African American GFR (CKD) >90 (>60 ml/min/1.73 sqM); Anion Gap 8 mmol/L; Blood Urea Nitrogen 8 mg/dL (7-17); Calcium 8.5 mg/dL (8.4-10.2); Carbon Dioxide 22 mmol/L (22-30); Chloride 107 mmol/L (98-107); Magnesium 2.2 mg/dL (1.6-2.3); Non-African American GFR(CKD) >90 (>60 ml/min/1.73 sqM); Phosphorus 2.6 mg/dL (2.5-4.5); Potassium 4.4 mmol/L (3.5-5.1); Sodium 137 mmol/L (137-145)
[2019-10-18] MEDS: PANTOPRAZOLE 40 MG/10 ML VIAL IV SCH (07:39)
[2019-10-18] MEDS: ALBUTEROL NEBULIZED 2.5 MG/3 ML INHALATION SCH ×4 (08:18→20:13)
[2019-10-18] MEDS: 1: MVI, ADULT NO.4 WITH VIT K 10 ML, THIAMINE 100 MG, FOLIC ACID 1 MG, POTASSIUM CHLORID IV SCH ×12 (09:44→17:48)
--- NOTE | 2019-10-18 10:03 | FL ---
EXAMINATION TYPE: FL UGI DATE OF EXAM: 10/18/2019 LIMITED UGI: CLINICAL HISTORY: Status post gastric sleeve performed 10/17/2019 TECHNIQUE: Limited esophagram is performed utilizing 25 cc of Isovue-370 oz of Omnipaque 350. A tota l of 1 minute and 11 seconds of fluoroscopic time was utilized during procedure. 13 fluoroscopic imag es saved. COMPARISON: None. FINDINGS: The patient swallowed contrast without difficulty or delay. Esophageal peristalsis and mo tility are within normal limits. However there is no flow of contrast along the diaphragmatic hiatus into proximal stomach despite prolonged imaging. Patient remains asymptomatic. There is no evidence o f contrast extravasation to suggest leak. IMPRESSION: Obstruction at the gastroesophageal junction, possibly secondary to postoperative edema. No contrast extends into the gastric sleeve despite prolonged imaging.
[2019-10-18] MEDS: DEXAMETHASONE SOD PHOSPHATE 4 MG/ML 1 ML VIAL IV SCH ×3 (10:29→23:01)
--- NOTE | 2019-10-18 10:29 | P.PN ---
<KrissLily Dayday - Last Filed: 10/18/19 10:25> Subjective Progress Note Date: 10/18/19 CHIEF COMPLAINT: Morbid obesity HISTORY OF PRESENT ILLNESS: 34-year-old female who is status post laparoscopic sleeve gastrectomy. Postoperative #1. Patient examined at the bedside. She re ports abdominal pain 11/24. She reports nausea. No vomiting. She has been tolerating small amount of ice chips. Esophagram this morning reveals obstruction at the gastroesophageal junction, possibly secondary to postoperative edema. No contrast extends into the gastric sleeve despite prolonged imaging. PHYSICAL EXAM: VITAL SIGNS: Reviewed. GENERAL: Well-developed in no acute distress. HEENT: No sclera icterus. Extraocular movements grossly intact. Moist buccal mucosa. Head is atraumatic, normocephalic. ABDOMEN: Soft. Nondistended. Appropriate surgical tenderness. Surgical sites clean dry and intact without drainage or erythema. NEUROLOGIC: Alert and oriented. Cranial nerves II through XII grossly intact. ASSESSMENT: 1. Morbid obesity, status post laparoscopic sleeve gastrectomy PLAN: -Continue NPO. Patient instructed to only have a few ice chips sparingly and to stop if nausea worsens -Pain control. Continue Dilaudid. Add Toradol PRN and IV Tylenol. -Incentive spirometry -Activity as tolerated -Begin Decadron 4 mg IV every 6 hours -Repeat esophagram tomorrow morning Nurse practitioner note has been reviewed by physician. Signing provider agrees with the documented findings, assessment, and plan of care. Objective - Vital Signs Vital signs: Vital Signs Temp 99 F 10/18/19 07:01 Pulse 84 10/18/19 08:30 Resp 18 10/18/19 07:01 BP 136/73 10/18/19 07:01 Pulse Ox 97 10/18/19 08:50 Intake & Output 10/17/19 10/18/19 10/18/19 18:59 06:59 18:59 Intake Total 1450 Output Total 10 1000 Balance 1440 -1000 Weight 109.8 kg Intake: IV 1450 Output: Urine 1000 Estimated Blood Loss 10 Other: # Voids 1 - Labs CBC & Chem 7: 10/18/19 06:50 10/18/19 06:50 Labs: Abnormal Lab Results - Last 24 Hours (Table) 10/18/19 10/18/19 Range/Units 06:50 06:50 Hgb 10.8 L (11.4-16.0) gm/dL MCV 78.4 L (80.0-100.0) fL MCH 24.0 L (25.0-35.0) pg MCHC 30.6 L (31.0-37.0) g/dL Creatinine 0.47 L (0.52-1.04) mg/dL <Mary Bledsoeony - Last Filed: 10/18/19 15:17> Subjective As above. Patient doing fairly well. Some nausea. Upper GI shows non-passage of contrast. No leak. Agree with adding Decadron. Repeat esophagram tomorrow. Ice chips only. Objective - Vital Signs Vital signs: Vital Signs Temp 98.5 F 10/18/19 14:44 Pulse 59 L 10/18/19 14:44 Resp 17 10/18/19 14:44 BP 125/72 10/18/19 14:44 Pulse Ox 98 10/18/19 14:44 Intake & Output 10/17/19 10/18/19 10/18/19 18:59 06:59 18:59 Intake Total 1450 1700 Output Total 10 1000 Balance 1440 -1000 1700 Weight 109.8 kg 109.8 kg Intake: IV 1450 Intake, IV Titration 1700 Amount ACETAMINOPHEN IV (For NPO 1000 ) 1,000 mg In Empty Bag 1 bag @ 400 mls/hr IVPB Q6HR [facility] Rx#:[id number] Mvi, Adult No.4 with Vit 700 K 10 ml Thiamine 100 mg Folic Acid 1 mg Potassium Chloride 20 meq In Sodium Chloride 0.9% 1, 000 ml @ 100 mls/hr IV . BY DURATION [facility] Rx#: [id number] Output: Urine 1000 Estimated Blood Loss 10 Other: # Voids 1 - Labs CBC & Chem 7: 10/18/19 06:50 10/18/19 06:50 Labs: Abnormal Lab Results - Last 24 Hours (Table) 10/18/19 10/18/19 Range/Units 06:50 06:50 Hgb 10.8 L (11.4-16.0) gm/dL MCV 78.4 L (80.0-100.0) fL MCH 24.0 L (25.0-35.0) pg MCHC 30.6 L (31.0-37.0) g/dL Creatinine 0.47 L (0.52-1.04) mg/dL Assessment and Plan (1) Morbid obesity Current Visit: No Status: Acute Code(s): E66.01 - MORBID (SEVERE) OBESITY DUE TO EXCESS CALORIES OMED Code(s): 333387182
[2019-10-18 10:39] VITALS: BMI 41.8
[2019-10-18] MEDS: ACETAMINOPHEN IV (For NPO) 1,000 MG in EMPTY BAG 1 BAG IVPB SCH ×3 (11:17→23:00)
[2019-10-18] MEDS: KETOROLAC 30 MG/ML 1 ML VIAL IVP PRN (14:38)
--- NOTE | 2019-10-18 16:48 | P.PN ---
Subjective Patient is status post sleeve gastrectomy, patient upper GI fluoroscopy for postoperative edema and obstruction because of which patient remains water and ice chips only. Patient pain is fairly well-controlled Constitutional: Denied any fatigue denied any fever. Cardio vascular: denied any chest pain, palpitations Gastrointestinal denied any nausea vomiting Pulmonary: Denied any shortness of breath cough Neurologic denied any new focal deficits All inpatient medications were reviewed and appropriate changes in these medications as dictated in the interval history and assessment and plan. Objective - Vital Signs Vital signs: Vital Signs Temp 98.5 F 10/18/19 14:44 Pulse 58 L 10/18/19 15:46 Resp 17 10/18/19 14:44 BP 125/72 10/18/19 14:44 Pulse Ox 99 10/18/19 15:35 Intake & Output 10/17/19 10/18/19 10/18/19 18:59 06:59 18:59 Intake Total 1450 1700 Output Total 10 1000 Balance 1440 -1000 1700 Weight 109.8 kg 109.8 kg Intake: IV 1450 Intake, IV Titration 1700 Amount ACETAMINOPHEN IV (For NPO 1000 ) 1,000 mg In Empty Bag 1 bag @ 400 mls/hr IVPB Q6HR [facility] Rx#:[id number] Mvi, Adult No.4 with Vit 700 K 10 ml Thiamine 100 mg Folic Acid 1 mg Potassium Chloride 20 meq In Sodium Chloride 0.9% 1, 000 ml @ 100 mls/hr IV . BY DURATION [facility] Rx#: [id number] Output: Urine 1000 Estimated Blood Loss 10 Other: # Voids 1 - Exam PHYSICAL EXAMINATION: GENERAL: The patient is alert and oriented x3, not in any acute distress. Obese HEENT: Pupils are round and equally reacting to light. EOMI. No scleral icterus. No conjunctival pallor. Normocephalic, atraumatic. No pharyngeal erythema. No thyromegaly. CARDIOVASCULAR: S1 and S2 present. No murmurs, rubs, or gallops. PULMONARY: Chest is clear to auscultation, no wheezing or crackles. ABDOMEN: Soft, nontender, nondistended, normoactive bowel sounds. No palpable organomegaly. MUSCULOSKELETAL: No joint swelling or deformity. EXTREMITIES: No cyanosis, clubbing, or pedal edema. NEUROLOGICAL: Gross neurological examination did not reveal any focal deficits. SKIN: No rashes. - Labs CBC & Chem 7: 10/18/19 06:50 10/18/19 06:50 Labs: Abnormal Lab Results - Last 24 Hours (Table) 10/18/19 10/18/19 Range/Units 06:50 06:50 Hgb 10.8 L (11.4-16.0) gm/dL MCV 78.4 L (80.0-100.0) fL MCH 24.0 L (25.0-35.0) pg MCHC 30.6 L (31.0-37.0) g/dL Creatinine 0.47 L (0.52-1.04) mg/dL Assessment and Plan Plan: -Patient is status post sleeve gastrectomy postoperative day one: GI series showing edema patient is presently only on ice chips diet. -Gastroesophageal reflux disease -Obesity Above-mentioned medical problems patient can be continued on present medications no further recommendations from medicine
[2019-10-19] MEDS: KETOROLAC 30 MG/ML 1 ML VIAL IVP PRN (03:43)
[2019-10-19] MEDS: 1: MVI, ADULT NO.4 WITH VIT K 10 ML, THIAMINE 100 MG, FOLIC ACID 1 MG, POTASSIUM CHLORID IV SCH ×18 (03:55→16:34)
[2019-10-19] MEDS: DEXAMETHASONE SOD PHOSPHATE 4 MG/ML 1 ML VIAL IV SCH ×3 (05:35→17:27)
[2019-10-19] MEDS: ACETAMINOPHEN IV (For NPO) 1,000 MG in EMPTY BAG 1 BAG IVPB SCH (05:35)
[2019-10-19] MEDS: ALBUTEROL NEBULIZED 2.5 MG/3 ML INHALATION SCH ×4 (07:33→19:17)
[2019-10-19] MEDS: PANTOPRAZOLE 40 MG/10 ML VIAL IV SCH (08:32)
[2019-10-19] MEDS: LACTATED RINGERS 1,000 ML IV SCH (09:12)
--- NOTE | 2019-10-19 09:33 | P.PN ---
<KrissLily Dayday - Last Filed: 10/19/19 09:30> Subjective Progress Note Date: 10/19/19 CHIEF COMPLAINT: Morbid obesity HISTORY OF PRESENT ILLNESS: 34-year-old female who is status post laparoscopic sleeve gastrectomy. Postoperative #2. Patient examined at the bedside. Patient reports pain today but states it is improved from yesterday 10/25. Still reports nausea with ice chips. No vomiting. Voiding without difficulty. PHYSICAL EXAM: VITAL SIGNS: Reviewed. GENERAL: Well-developed in no acute distress. HEENT: No sclera icterus. Extraocular movements grossly intact. Moist buccal mucosa. Head is atraumatic, normocephalic. ABDOMEN: Soft. Nondistended. Appropriate surgical tenderness. Surgical sites clean dry and intact without drainage or erythema. NEUROLOGIC: Alert and oriented. Cranial nerves II through XII grossly intact. ASSESSMENT: 1. Morbid obesity, status post laparoscopic sleeve gastrectomy PLAN: -Continue NPO. Patient instructed to only have a few ice chips sparingly and to stop if nausea worsens -Pain control. Continue Dilaudid and IV Toradol. -Incentive spirometry -Activity as tolerated -Continue Decadron 4 mg IV every 6 hours -Repeat esophagram pending. Await results. Nurse practitioner note has been reviewed by physician. Signing provider agrees with the documented findings, assessment, and plan of care. Objective - Vital Signs Vital signs: Vital Signs Temp 98.7 F 10/19/19 07:00 Pulse 58 L 10/19/19 08:00 Resp 18 10/19/19 08:00 BP 159/78 10/19/19 07:00 Pulse Ox 97 10/19/19 07:00 Intake & Output 10/18/19 10/19/19 10/19/19 18:59 06:59 18:59 Intake Total 1700 1150 Balance 1700 1150 Weight 109.8 kg Intake: Intake, IV Titration 1700 1150 Amount 0.9% NaCl with KCl 20 Meq 350 /l 1,000 ml @ 100 mls/hr IV .BY DURATION [facility] Rx#: [id number] ACETAMINOPHEN IV (For NPO 1000 ) 1,000 mg In Empty Bag 1 bag @ 400 mls/hr IVPB Q6HR [facility] Rx#:[id number] Lactated Ringers 1,000 ml 800 @ 0 mls/hr IV .STK-MED ONE Rx#:[id number] Mvi, Adult No.4 with Vit 700 K 10 ml Thiamine 100 mg Folic Acid 1 mg Potassium Chloride 20 meq In Sodium Chloride 0.9% 1, 000 ml @ 100 mls/hr IV . BY DURATION [facility] Rx#: [id number] Other: Voiding Method Toilet Toilet # Voids 2 - Labs CBC & Chem 7: 10/18/19 06:50 10/18/19 06:50 <Eyal Bledsoe - Last Filed: 10/19/19 12:48> Subjective As above. Patient's upper GI still showed some hesitation. Question contrast extravasation on upper GI lead II CAT scan which was normal. Patient actually looks comfortable. White blood cell count normal. No tachycardia. Begin clear liquids sparingly. Objective - Vital Signs Vital signs: Vital Signs Temp 98.7 F 10/19/19 07:00 Pulse 56 L 10/19/19 12:00 Resp 18 10/19/19 08:00 BP 159/78 10/19/19 07:00 Pulse Ox 97 10/19/19 07:00 Intake & Output 10/18/19 10/19/19 10/19/19 18:59 06:59 18:59 Intake Total 1700 1150 Balance 1700 1150 Weight 109.8 kg Intake: Intake, IV Titration 1700 1150 Amount 0.9% NaCl with KCl 20 Meq 350 /l 1,000 ml @ 100 mls/hr IV .BY DURATION [facility] Rx#: [id number] ACETAMINOPHEN IV (For NPO 1000 ) 1,000 mg In Empty Bag 1 bag @ 400 mls/hr IVPB Q6HR [facility] Rx#:[id number] Lactated Ringers 1,000 ml 800 @ 0 mls/hr IV .STK-MED ONE Rx#:[id number] Mvi, Adult No.4 with Vit 700 K 10 ml Thiamine 100 mg Folic Acid 1 mg Potassium Chloride 20 meq In Sodium Chloride 0.9% 1, 000 ml @ 100 mls/hr IV . BY DURATION [facility] Rx#: [id number] Other: Voiding Method Toilet Toilet # Voids 2 - Labs CBC & Chem 7: 10/19/19 10:44 10/18/19 06:50 Labs: Abnormal Lab Results - Last 24 Hours (Table) 10/19/19 Range/Units 10:44 Hgb 10.8 L (11.4-16.0) gm/dL MCHC 30.7 L (31.0-37.0) g/dL Lymphocytes # 0.6 L (1.0-4.8) k/uL Assessment and Plan (1) Morbid obesity Current Visit: No Status: Acute Code(s): E66.01 - MORBID (SEVERE) OBESITY DUE TO EXCESS CALORIES SNOMED Code(s): 600417943
--- NOTE | 2019-10-19 10:04 | FL ---
"EXAMINATION TYPE: FL UGI w esophagus DATE OF EXAM: 10/19/2019 LIMITED UGI: CLINICAL HISTORY: Morbid Obesity, gastric sleeve surgery 2 days earlier. Abnormal upper GI one day e jaz. TECHNIQUE: Limited esophagram is performed utilizing 25 oz of Isovue-370. A total of 71 seconds of f luoroscopic time was utilized during procedure. There are 71 images including 2 overhead images. COMPARISON: Prior upper GI study from yesterday.. FINDINGS: The patient swallowed contrast without difficulty or delay. Esophageal peristalsis and mo tility are within normal limits. There is persistent satisfactory flow through the diaphragmatic hia tus into the proximal stomach There is persistent delayed of contrast along the proximal anastomosis into gastric sleeve . Contrast from one day earlier has passed into sleeve seen in mid abdominal jocelin l loops. Eventual flow is seen. There is then some delayed flow from distal sleeve into pylorus and d uodenal sweep. Patient remains fairly asymptomatic. I performed 2 post procedure overhead images whic h show some slightly unusual linear extension in the midportion of the sleeve. Contrast from one day earlier has progressed into distal bowel loops in the midabdomen uncertain if has progressed to colon ic level. IMPRESSION: Persistent moderate to severe obstruction at the proximal anastomosis and mild to moderat e obstruction at the distal anastomosis. Unusual linear extension cannot exclude leak mid aspect of t he gastric sleeve. Consider CT abdomen and pelvis follow-up. A Yellow level critical message alert has been initiated for Eyal Bledsoe MD via the [employer] 36 0 | Critical Results System on 10/19/2019 10:01 AM. This message alert has been sent to Eyal Bledsoe MD via the preferences provided by the clinician for the receipt of Radiology Critical Findings. [facility] ID [id number]."
[2019-10-19] MEDS ORDERED: IOPAMIDOL CONTRAST (ORAL USE) VIAL PO PRN (10:29)
[2019-10-19 11:00] LABS: Basophils % (A) 0 %; Eosinophils % (A) 0 %; HGB 10.8 gm/dL (11.4-16.0); Hypochromasia Marked; Lymphocytes # (A) 0.6 k/uL (1.0-4.8); Lymphocytes % (A) 10 %; MCHC 30.7 g/dL (31.0-37.0); MCV 81.3 fL (80.0-100.0); Mean Platelet Volume 8.4; Monocytes # (A) 0.2 k/uL (0-1.0); Monocytes % (A) 3 %; Neutrophils # (A) 5.5 k/uL (1.3-7.7); Neutrophils % (A) 86 %; Platelet Count 248 k/uL (150-450); RDW 15.1 % (11.5-15.5); WBC 6.4 k/uL (3.8-10.6)
--- NOTE | 2019-10-19 11:30 | CT ---
EXAMINATION TYPE: CT abdomen pelvis wo con DATE OF EXAM: 10/19/2019 HISTORY: r/o leak post gastric sleeve on 10/16, epigastric pain. Abnormal upper GI studies. CT DLP: 1594.2 mGycm. Automated Exposure Control for Dose Reduction was Utilized. TECHNIQUE: CT scan of the abdomen and pelvis is performed without oral or IV contrast. COMPARISON: Limited upper GI study from today and yesterday. FINDINGS: Within the limitations of a non-contrast study, the following observations are made. LUNG BASES: Slightly elevated left hemidiaphragm. [id number] left greater than right bibasilar atelectasis and/or perhaps limited acute infiltrate, former is favored. Correlate clinically. LIVER/GB: Gallbladder has slightly distended margins. This likely corresponds to patient's fasting st ate from recent surgery. PANCREAS: No significant abnormality is seen. SPLEEN: Spleen measures upper limits of normal. ADRENALS: No significant abnormality is seen. KIDNEYS: There is 2 to 3 mm nonobstructing calculus lower pole of the left kidney coronal image 65. BOWEL: Patient's oral contrast from recent upper GI study is seen in the gastric sleeve along with sc attered small and large bowel loops. Contrast fills normal-appearing appendix in the right lower quad rant. Corresponding to recent upper GI study there is slight irregularity at the distal anastomosis c orresponding to some prominence of the stomach or antrum pass the surgical sutures. There is no free extravasation of contrast to suggest leak. GENITAL ORGANS: Anteverted uterus. Normal size right ovary in the pelvis. Left ovary less well seen l ikely axial image 76 normal in size. LYMPH NODES: No greater than 1cm abdominal or pelvic lymph nodes are appreciated. OSSEOUS STRUCTURES: No significant abnormality is seen. OTHER: Areas of subcutaneous emphysema in the anterior abdominal wall left mid abdomen near the umbil icus along with the right lower quadrant corresponding to history of laparoscopic gastric sleeve surg duc recently. IMPRESSION: No oral contrast extravasation to suggest leak.
[2019-10-19] MEDS: HYDROmorphone 1 MG/ML 1 ML SYRINGE IVP PRN (11:58)
[2019-10-19] MEDS: ENOXAPARIN 40 MG/0.4 ML SYRINGE SQ SCH (14:23)
[2019-10-20] MEDS: DEXAMETHASONE SOD PHOSPHATE 4 MG/ML 1 ML VIAL IV SCH ×5 (00:23→23:03)
[2019-10-20] MEDS: ENOXAPARIN 40 MG/0.4 ML SYRINGE SQ SCH ×3 (00:23→23:04)
[2019-10-20] MEDS: KETOROLAC 30 MG/ML 1 ML VIAL IVP PRN ×4 (00:40→21:21)
[2019-10-20] MEDS: PANTOPRAZOLE 40 MG/10 ML VIAL IV SCH (07:22)
[2019-10-20] MEDS: ALBUTEROL NEBULIZED 2.5 MG/3 ML INHALATION SCH ×4 (08:45→19:39)
[2019-10-20] MEDS ORDERED: ACETAMINOPHEN IV (For NPO) 1,000 MG in EMPTY BAG 1 BAG IVPB STA (08:50)
--- NOTE | 2019-10-20 09:19 | P.PN ---
<KrissLily Dayday - Last Filed: 10/20/19 09:12> Subjective Progress Note Date: 10/20/19 CHIEF COMPLAINT: Morbid obesity HISTORY OF PRESENT ILLNESS: 34-year-old female who is status post laparoscopic sleeve gastrectomy. Postoperative #3. Patient examined at the bedside. She com plains of a headache this morning. Nursing reports patient has been sustaining a heart rate in the 30-40s overnight. Patient states her abdominal pain has improved. Tolerating clear liquids. Mild nausea. No vomiting. PHYSICAL EXAM: VITAL SIGNS: Reviewed. GENERAL: Well-developed in no acute distress. HEENT: No sclera icterus. Extraocular movements grossly intact. Moist buccal mucosa. Head is atraumatic, normocephalic. ABDOMEN: Soft. Nondistended. Appropriate surgical tenderness. Surgical sites clean dry and intact without drainage or erythema. NEUROLOGIC: Alert and oriented. Cranial nerves II through XII grossly intact. ASSESSMENT: 1. Morbid obesity, status post laparoscopic sleeve gastrectomy PLAN: -Continue clear liquid diet as tolerated -Pain control. Continue Dilaudid and IV Toradol. -IV Tylenol 1 for headache. Patient received a dose of Toradol earlier as well. -Incentive spirometry -Activity as tolerated -Continue Decadron 4 mg IV every 6 hours -Cardiology consulted for bradycardia. Await evaluation Nurse practitioner note has been reviewed by physician. Signing provider agrees with the documented findings, assessment, and plan of care. Objective - Vital Signs Vital signs: Vital Signs Temp 98.1 F 10/20/19 07:00 Pulse 42 L 10/20/19 08:00 Resp 17 10/20/19 08:00 BP 167/67 10/20/19 07:00 Pulse Ox 96 10/20/19 07:00 Intake & Output 10/19/19 10/20/19 10/20/19 18:59 06:59 18:59 Other: Voiding Method Toilet Toilet Toilet # Voids 1 1 - Labs CBC & Chem 7: 10/19/19 10:44 10/18/19 06:50 Labs: Abnormal Lab Results - Last 24 Hours (Table) 10/19/19 Range/Units 10:44 Hgb 10.8 L (11.4-16.0) gm/dL MCHC 30.7 L (31.0-37.0) g/dL Lymphocytes # 0.6 L (1.0-4.8) k/uL <Eyal Bledsoe - Last Filed: 10/20/19 13:42> Subjective As above. Patient doing better. Tolerating liquids. She is only had about 15 ounces or so of liquid so far today however. Hernia I'll just evaluation for bradycardia ongoing. Await echo. Objective - Vital Signs Vital signs: Vital Signs Temp 98.1 F 10/20/19 07:00 Pulse 50 L 10/20/19 12:19 Resp 17 10/20/19 08:00 BP 166/68 10/20/19 08:05 Pulse Ox 96 10/20/19 07:00 Intake & Output 10/19/19 10/20/19 10/20/19 18:59 06:59 18:59 Intake Total 1021.2 1200 Balance 1021.2 1200 Intake: Intake, IV Titration 1021.2 1000 Amount 0.9% NaCl with KCl 20 Meq 1000 /l 1,000 ml @ 100 mls/hr IV .BY DURATION [facility] Rx#: [id number] Mvi, Adult No.4 with Vit 1021.2 K 10 ml Thiamine 100 mg Folic Acid 1 mg Potassium Chloride 20 meq In Sodium Chloride 0.9% 1, 000 ml @ 100 mls/hr IV . BY DURATION [facility] Rx#: [id number] Oral 200 Other: Voiding Method Toilet Toilet Toilet # Voids 1 1 - Labs CBC & Chem 7: 10/19/19 10:44 10/20/19 10:43 Labs: Abnormal Lab Results - Last 24 Hours (Table) 10/19/19 10/20/19 Range/Units 06:32 10:43 Glucose 110 H (74-99) mg/dL TSH 0.208 L (0.465-4.680) mIU/L Assessment and Plan (1) Morbid obesity Current Visit: No Status: Acute Code(s): E66.01 - MORBID (SEVERE) OBESITY DUE TO EXCESS CALORIES SNOMED Code(s): 707337632
[2019-10-20] MEDS: ONDANSETRON 4 MG/2 ML VIAL IVP PRN (09:36)
[2019-10-20] MEDS ORDERED: HYOSCYAMINE SULFATE 0.375 MG TAB.ER.12H PO SCH (10:15)
[2019-10-20 10:25] LABS: T4, Free (Free Thyroxine) 1.73 ng/dL (0.78-2.19)
--- NOTE | 2019-10-20 11:00 | P.CRDCN ---
History of Present Illness History of present illness: HISTORY OF PRESENTING ILLNESS This is a pleasant 34-year-old female past medical history significant for morbid obesity. She denies prior history of coronary artery disease and do es not follow in the office with a relationship associate. We have been asked to see in consultation for bradycardia. She has postoperative day #3 from a laparoscopic sleeve gastrectomy with Dr. Bledsoe. Yesterday afternoon while taking routine vital signs it was noted that her heart rate was 36. EKG was obtained and telemetry was applied. EKG reveals sinus bradycardia with a heart rate in the 50s. Telemetry tracings reveal persistent sinus bradycardia with heart rate fluctuating between high 30-50 range. She is seen and examined resting comfortably laying flat in bed in no acute distress undergoing an echocardiogram. She states overall she feels generalized weakness and fatigue. She has been up ambulating to the bathroom without difficulty. She has no exertional shortness of breath or dizziness. She denies chest pain at or palpitations. She states last night while she was sleeping she felt a sensation in her chest described as a vibration. She is currently not prescribed any rate lowering agents. Blood pressure 167/67 heart rate of 42. Most recent labs received yesterday revealed a WBC of 6.4, hemoglobin of 10.8, platelets of 248, TSH 0.208 with a free T4 1 0.73. Most recent BMP from October 17 revealed sodium of 137, potassium of 4.4, creatinine 0.47 and magnesium 2.2. She states [place] . She was evaluated at that time at [facility]. According to her there was no cardiac cause for her syncope. She was at the time and had gestational diabetes. REVIEW OF SYSTEMS At the time of my exam: CONSTITUTIONAL: Denies fever or chills. CARDIOVASCULAR: Denies chest pain, shortness of breath, orthopnea, PND or palpitations. RESPIRATORY: Denies cough. GASTROINTESTINAL: Denies abdominal pain, diarrhea, constipation, nausea or vomiting. MUSCULOSKELETAL: Denies myalgias. NEUROLOGIC: Complains of generalized weakness and fatigue. Denies numbness, tingling. ENDOCRINE: Denies fatigue, weight change, polydipsia or polyurina. GENITOURINARY: Denies burning, hematuria or urgency with micturation. HEMATOLOGIC: Denies history of anemia or bleeding. PHYSICAL EXAMINATION CONSTITUTIONAL: No apparent distress. Morbidly obese. HEENT: Head is normocephalic. Pupils are equal, round. Sclerae anicteric. Mucous membranes of the mouth are moist. No JVD. No carotid bruit. CHEST EXAMINATION: Lungs are clear to auscultation. No chest wall tenderness is noted on palpation or with deep breathing. HEART EXAMINATION: Bradycardic. Regular rate and rhythm. S1, S2 heard. No murmurs, gallops or rub. ABDOMEN: Soft, nontender. Positive bowel sounds. EXTREMITIES: 2+ peripheral pulses, no lower extremity edema and no calf tenderness. NEUROLOGIC EXAMINATION: Patient is awake, alert and oriented x3. ASSESSMENT Sinus bradycardia Status post laparoscopic sleeve gastrectomy Morbid obesity, BMI 41 PLAN Echocardiogram has been obtained and will be reviewed. Recommend outpatient sleep study. She is currently prescribed levsin drops PRN for esophageal spasm, we will change this to PO scheduled BID to increase heart rates. Thank you kindly for this consultation. Nurse Practitioner note has been reviewed, I agree with a documented findings and plan of care. Patient was seen and examined. Past Medical History Past Medical History: No Reported History Additional Past Medical History / Comment(s): Gestational diabetes 2017. History of Any Multi-Drug Resistant Organisms: None Reported Past Surgical History: Section Additional Past Surgical History / Comment(s): Cesearean section x2 (2012, 2016) Past Anesthesia/Blood Transfusion Reactions: No Reported Reaction Additional Past Anesthesia/Blood Transfusion Reaction / Comment(s): No transfusion to date Past Psychological History: No Psychological Hx Reported Smoking Status: Former smoker Past Alcohol Use History: Occasional Additional Past Alcohol Use History / Comment(s): QUIT SMOKING 2017 Past Drug Use History: None Reported - Past Family History Father Additional Family Medical History / Comment(s): crohns Medications and Allergies Home Medications Medication Instructions Recorded Confirmed Type No Known Home Medications 10/13/19 10/17/19 History Allergies Allergy/AdvReac Type Severity Reaction Status Date / Time Penicillins Allergy Unknown Verified 10/17/19 09:39 Childhood Physical Exam Vitals: Vital Signs Temp Pulse Pulse Pulse Resp BP Pulse Ox 10/20/19 07:00 98.1 F 42 L 17 167/67 96 10/20/19 00:17 98.2 F 40 L 13 136/76 96 10/19/19 19:35 98.2 F 51 L 14 148/75 97 10/19/19 19:27 40 L 10/19/19 19:17 38 L 10/19/19 15:24 51 L 16 10/19/19 15:14 38 L 16 10/19/19 15:00 97.9 F 57 L 18 155/58 98 10/19/19 12:00 56 L 10/19/19 11:50 60 Intake and Output 10/19/19 10/20/19 10/20/19 22:59 06:59 14:59 Other: Voiding Method Toilet # Voids 1 1 Results 10/19/19 10:44 10/18/19 06:50 CBC 10/19/19 Range/Units 10:44 WBC 6.4 (3.8-10.6) k/uL RBC 4.30 (3.80-5.40) m/uL Hgb 10.8 L (11.4-16.0) gm/dL Hct 35.0 (34.0-46.0) % Plt Count 248 (150-450) k/uL Current Medications Generic Name Dose Route Start Last Admin Trade Name Freq PRN Reason Stop Dose Admin Albuterol Sulfate 2.5 mg 10/17/19 16:00 10/19/19 19:17 Ventolin Nebulized INHALATION 2.5 mg RT-QID SHAKEEL Administration Dexamethasone Sodium Phosphate 4 mg 10/18/19 12:00 10/20/19 05:39 Decadron IV 4 mg Q6HR SHAKEEL Administration Diphenhydramine HCl 25 mg 10/17/19 13:53 10/17/19 15:05 Benadryl IVP 25 mg Q6HR PRN Administration Itching Enoxaparin Sodium 40 mg 10/18/19 00:00 10/20/19 00:23 Lovenox SQ 40 mg Q12H SHAKEEL Administration Hydromorphone HCl 1 mg 10/17/19 13:53 10/19/19 11:58 Dilaudid IVP 1 mg Q3HR PRN Administration Pain Hyoscyamine 0.125 mg 10/17/19 13:53 10/18/19 01:32 Levsin Drops PO 0.125 mg Q6HR PRN Administration Esophageal Spasm Parenteral Vitamin Supplement 1,021.2 mls @ 100 mls/hr 10/18/19 08:00 10/19/19 16:34 10 ml/ Thiamine HCl 100 mg/ IV 100 mls/hr Folic Acid 1 mg/ Potassium .BY DURATION SHAKEEL Administration Chloride 20 meq/ Sodium Chloride Potassium Chloride/Sodium Chloride 1,000 mls @ 100 mls/hr 10/18/19 08:00 10/19/19 16:26 Ns-Kcl 20 Meq/L Iv Solution IV Not Given .BY DURATION [facility]KE[facility] Iopamidol 30 ml 10/19/19 10:29 Isovue-300 (For Oral Use) PO 10/20/19 10:[address] Scan Ketorolac Tromethamine 15 mg 10/18/19 10:11 10/20/19 07:22 Toradol IVP 10/22/19 10:11 15 mg Q6HR PRN Administration Pain Naloxone HCl 0.2 mg 10/17/19 13:53 Narcan IV Q2M PRN Opioid Reversal Ondansetron HCl 4 mg 10/18/19 10:53 10/18/19 14:38 Zofran IVP 4 mg Q6HR PRN Administration Nausea And Vomiting Pantoprazole Sodium 40 mg 10/18/19 09:00 10/20/19 07:22 Protonix IV 40 mg DAILY SHAKEEL Administration Simethicone 40 mg 10/17/19 13:53 10/17/19 17:16 Mylicon Drops PO 40 mg Q6HR PRN Administration Bloating Intake and Output 10/19/19 10/20/19 10/20/19 22:59 06:59 14:59 Other: Voiding Method Toilet # Voids 1 1 10/19/19 10:44 10/18/19 06:50
[2019-10-20 11:54] LABS: African American GFR (CKD) >90 (>60 ml/min/1.73 sqM); Anion Gap 7 mmol/L; Blood Urea Nitrogen 16 mg/dL (7-17); Calcium 9.3 mg/dL (8.4-10.2); Carbon Dioxide 24 mmol/L (22-30); Chloride 106 mmol/L (98-107); Glucose 110 mg/dL (74-99); Non-African American GFR(CKD) >90 (>60 ml/min/1.73 sqM); Potassium 4.9 mmol/L (3.5-5.1); Sodium 137 mmol/L (137-145)
[2019-10-20] MEDS: 1: MVI, ADULT NO.4 WITH VIT K 10 ML, THIAMINE 100 MG, FOLIC ACID 1 MG, POTASSIUM CHLORID IV SCH ×18 (12:41→21:23)
[2019-10-20] MEDS: HYOSCYAMINE ORAL DROPS 1.875 MG/15 ML BOTTLE PO SCH ×3 (12:45→23:03)
[2019-10-20] MEDS ORDERED: HYOSCYAMINE ORAL DROPS 1.875 MG/15 ML BOTTLE PO SCH (18:00)
--- NOTE | 2019-10-20 18:04 | P.PN ---
Subjective Patient is status post sleeve gastrectomy, patient upper GI fluoroscopy for postoperative edema and obstruction because of which patient remains water and ice chips only. Patient pain is fairly well-controlled 10/20/2019 Cardiology evaluated the patientto his bradycardia. Aricept multiple causes today for sinus bradycardia obtain an EKG which is sinus bradycardia with heart rate going anywhere between 36-39 patient is a symptomatic. Patient is not on beta marlys and may be related to her obesity. Echocardiac exam is being obtained Constitutional: Denied any fatigue denied any fever. Cardio vascular: denied any chest pain, palpitations Gastrointestinal denied any nausea vomiting Pulmonary: Denied any shortness of breath cough Neurologic denied any new focal deficits All inpatient medications were reviewed and appropriate changes in these medications as dictated in the interval history and assessment and plan. Objective - Vital Signs Vital signs: Vital Signs Temp 98.2 F 10/20/19 14:50 Pulse 48 L 10/20/19 16:06 Resp 18 10/20/19 14:50 BP 181/83 10/20/19 14:50 Pulse Ox 98 10/20/19 14:50 Intake & Output 10/19/19 10/20/19 10/20/19 18:59 06:59 18:59 Intake Total 1021.2 1200 Balance 1021.2 1200 Intake: Intake, IV Titration 1021.2 1000 Amount 0.9% NaCl with KCl 20 Meq 1000 /l 1,000 ml @ 100 mls/hr IV .BY DURATION [facility] Rx#: [id number] Mvi, Adult No.4 with Vit 1021.2 K 10 ml Thiamine 100 mg Folic Acid 1 mg Potassium Chloride 20 meq In Sodium Chloride 0.9% 1, 000 ml @ 100 mls/hr IV . BY DURATION [facility] Rx#: [id number] Oral 200 Other: Voiding Method Toilet Toilet Toilet # Voids 1 1 3 - Exam PHYSICAL EXAMINATION: GENERAL: The patient is alert and oriented x3, not in any acute distress. Obese HEENT: Pupils are round and equally reacting to light. EOMI. No scleral icterus. No conjunctival pallor. Normocephalic, atraumatic. No pharyngeal erythema. No thyromegaly. CARDIOVASCULAR: S1 and S2 present. No murmurs, rubs, or gallops. PULMONARY: Chest is clear to auscultation, no wheezing or crackles. ABDOMEN: Soft, nontender, nondistended, normoactive bowel sounds. No palpable organomegaly. MUSCULOSKELETAL: No joint swelling or deformity. EXTREMITIES: No cyanosis, clubbing, or pedal edema. NEUROLOGICAL: Gross neurological examination did not reveal any focal deficits. SKIN: No rashes. - Labs CBC & Chem 7: 10/19/19 10:44 10/20/19 10:43 Labs: Abnormal Lab Results - Last 24 Hours (Table) 10/19/19 10/20/19 Range/Units 06:32 10:43 Glucose 110 H (74-99) mg/dL TSH 0.208 L (0.465-4.680) mIU/L Assessment and Plan Plan: -Patient is status post sleeve gastrectomy postoperative day one: GI series showing edema patient is presently clear liquid diet which will be advanced by tomorrow -Gastroesophageal reflux disease -asymptomatic sinus bradycardiaother intervention except for echocardiogram to evaluate for any structural abnormalities -Obesity Above-mentioned medical problems patient can be continued on present medications no further recommendations from medicine
[2019-10-21] MEDS: HYOSCYAMINE ORAL DROPS 1.875 MG/15 ML BOTTLE PO SCH ×3 (05:03→17:57)
[2019-10-21] MEDS: DEXAMETHASONE SOD PHOSPHATE 4 MG/ML 1 ML VIAL IV SCH ×3 (05:04→17:57)
[2019-10-21] MEDS: KETOROLAC 30 MG/ML 1 ML VIAL IVP PRN ×2 (05:06→14:47)
[2019-10-21 08:11] VITALS: RESP 16
[2019-10-21] MEDS: ALBUTEROL NEBULIZED 2.5 MG/3 ML INHALATION SCH ×4 (08:28→20:02)
[2019-10-21] MEDS: PANTOPRAZOLE 40 MG/10 ML VIAL IV SCH (09:10)
--- NOTE | 2019-10-21 10:12 | P.PN ---
<Lily Monterroso - Last Filed: 10/21/19 10:02> Subjective Progress Note Date: 10/21/19 CHIEF COMPLAINT: Morbid obesity HISTORY OF PRESENT ILLNESS: 34-year-old female who is status post laparoscopic sleeve gastrectomy. POD #4. Patient examined at the bedside. Abdominal pain i s tolerable. She is tolerating clear liquid diet. She complains of liquids occasionally feeling stuck but the majority of the time is tolerating without difficulty. Patient reports having 4 ounces of broth this morning and 2 ounces of sherbet. Patient does report feeling dizzy this morning when she got up. Vital signs stable. She remains bradycardic. PHYSICAL EXAM: VITAL SIGNS: Reviewed. GENERAL: Well-developed in no acute distress. HEENT: No sclera icterus. Extraocular movements grossly intact. Moist buccal mucosa. Head is atraumatic, normocephalic. ABDOMEN: Soft. Nondistended. Appropriate surgical tenderness. Surgical sites clean dry and intact without drainage or erythema. NEUROLOGIC: Alert and oriented. Cranial nerves II through XII grossly intact. ASSESSMENT: 1. Morbid obesity, status post laparoscopic sleeve gastrectomy PLAN: -Continue clear liquid diet as tolerated -Pain control -Incentive spirometry -Activity as tolerated -Continue Decadron 4 mg IV every 6 hours -Cardiology on consult for bradycardia. Await echocardiogram Nurse practitioner note has been reviewed by physician. Signing provider agrees with the documented findings, assessment, and plan of care. Objective - Vital Signs Vital signs: Vital Signs Temp 98.1 F 10/21/19 07:20 Pulse 60 10/21/19 08:39 Resp 16 10/21/19 07:20 BP 143/81 10/21/19 07:20 Pulse Ox 95 10/21/19 07:20 Intake & Output 10/20/19 10/21/19 10/21/19 18:59 06:59 18:59 Intake Total 1200 310 Balance 1200 310 Intake: Intake, IV Titration 1000 310 Amount 0.9% NaCl with KCl 20 Meq 1000 310 /l 1,000 ml @ 100 mls/hr IV .BY DURATION [facility] Rx#: [id number] Oral 200 Other: Voiding Method Toilet Toilet # Voids 3 2 - Labs CBC & Chem 7: 10/19/19 10:44 10/20/19 10:43 Labs: Abnormal Lab Results - Last 24 Hours (Table) 10/20/19 Range/Units 10:43 Glucose 110 H (74-99) mg/dL <Eyal Bledsoe - Last Filed: 10/21/19 11:51> Subjective As above. Patient doing better today. Tolerating approximately 10-15 ounces of liquids so far. She was dizzy earlier this morning. Await cardiology final recommendations but anticipate discharge today. Objective - Vital Signs Vital signs: Vital Signs Temp 98.1 F 10/21/19 07:20 Pulse 62 10/21/19 11:47 Resp 16 10/21/19 08:00 BP 143/81 10/21/19 07:20 Pulse Ox 95 10/21/19 07:20 Intake & Output 10/20/19 10/21/19 10/21/19 18:59 06:59 18:59 Intake Total 1200 310 Output Total 250 Balance 1200 310 -250 Intake: Intake, IV Titration 1000 310 Amount 0.9% NaCl with KCl 20 Meq 1000 310 /l 1,000 ml @ 100 mls/hr IV .BY DURATION [facility] Rx#: [id number] Oral 200 Output: Urine 250 Other: Voiding Method Toilet Toilet Toilet # Voids 3 2 2 - Labs CBC & Chem 7: 10/19/19 10:44 10/20/19 10:43 Labs: Abnormal Lab Results - Last 24 Hours (Table) 10/20/19 Range/Units 10:43 Glucose 110 H (74-99) mg/dL Assessment and Plan (1) Morbid obesity Current Visit: No Status: Acute Code(s): E66.01 - MORBID (SEVERE) OBESITY DUE TO EXCESS CALORIES SNOMED Code(s): 048986820
[2019-10-21] MEDS: ENOXAPARIN 40 MG/0.4 ML SYRINGE SQ SCH (12:38)
--- NOTE | 2019-10-21 14:59 | P.PN ---
Subjective Patient is status post sleeve gastrectomy, patient upper GI fluoroscopy for postoperative edema and obstruction because of which patient remains water and ice chips only. Patient pain is fairly well-controlled 10/20/2019 Cardiology evaluated the patientto his bradycardia. Aricept multiple causes today for sinus bradycardia obtain an EKG which is sinus bradycardia with heart rate going anywhere between 36-39 patient is a symptomatic. Patient is not on beta marlys and may be related to her obesity. Echocardiac exam is being obtained 10/21/2019 patient is able to tolerate some diet because of which are to the surgery wanted to watch her one more night and continue to advance her diet Constitutional: Denied any fatigue denied any fever. Cardio vascular: denied any chest pain, palpitations Gastrointestinal denied any nausea vomiting Pulmonary: Denied any shortness of breath cough Neurologic denied any new focal deficits All inpatient medications were reviewed and appropriate changes in these medications as dictated in the interval history and assessment and plan. Objective - Vital Signs Vital signs: Vital Signs Temp 98.1 F 10/21/19 07:20 Pulse 62 10/21/19 11:47 Resp 16 10/21/19 08:00 BP 143/81 10/21/19 07:20 Pulse Ox 95 10/21/19 07:20 Intake & Output 10/20/19 10/21/19 10/21/19 18:59 06:59 18:59 Intake Total 1200 310 480 Output Total 250 Balance 1200 310 230 Intake: Intake, IV Titration 1000 310 Amount 0.9% NaCl with KCl 20 Meq 1000 310 /l 1,000 ml @ 100 mls/hr IV .BY DURATION [facility] Rx#: [id number] Oral 200 480 Output: Urine 250 Other: Voiding Method Toilet Toilet Toilet # Voids 3 2 3 - Exam PHYSICAL EXAMINATION: GENERAL: The patient is alert and oriented x3, not in any acute distress. Obese HEENT: Pupils are round and equally reacting to light. EOMI. No scleral icterus. No conjunctival pallor. Normocephalic, atraumatic. No pharyngeal erythema. No thyromegaly. CARDIOVASCULAR: S1 and S2 present. No murmurs, rubs, or gallops. PULMONARY: Chest is clear to auscultation, no wheezing or crackles. ABDOMEN: Soft, nontender, nondistended, normoactive bowel sounds. No palpable organomegaly. MUSCULOSKELETAL: No joint swelling or deformity. EXTREMITIES: No cyanosis, clubbing, or pedal edema. NEUROLOGICAL: Gross neurological examination did not reveal any focal deficits. SKIN: No rashes. - Labs CBC & Chem 7: 10/19/19 10:44 10/20/19 10:43 Assessment and Plan Plan: -Patient is status post sleeve gastrectomy postoperative day one: Is tolerating soft diet and possibly of discharge tomorrow -Gastroesophageal reflux disease -asymptomatic sinus bradycardiaother intervention except for echocardiogram to evaluate for any structural abnormalities -Obesity Above-mentioned medical problems patient can be continued on present medications no further recommendations from medicine
[2019-10-21 15:09] VITALS: BP 122/75; TEMP 97.7
[2019-10-21 18:38] VITALS: PULSE 61
[2019-10-21] MEDS: 1: MVI, ADULT NO.4 WITH VIT K 10 ML, THIAMINE 100 MG, FOLIC ACID 1 MG, POTASSIUM CHLORID IV SCH ×6 (18:59)
== END 2019-10-21 20:40 | disposition home health service (06) | DRG 620 ==
LOC: 2ORMAIN 09:18 → 4SSUR 15:22
PROVIDERS: ADMIT Surgery; ATTEND Surgery
PROC: 0DB64Z3 Excision of Stomach, Percutaneous Endoscopic Approach, Vertical (ICD-10-PCS; principal; 2019-10-17 10:55)
DX: E66.01 Morbid (severe) obesity due to excess calories (principal); K91.89 Other postprocedural complications and disorders of digestive system; K22.2 Esophageal obstruction; E78.00 Pure hypercholesterolemia, unspecified; F17.200 Nicotine dependence, unspecified, uncomplicated; K21.9 Gastro-esophageal reflux disease without esophagitis; K29.70 Gastritis, unspecified, without bleeding; R00.1 Bradycardia, unspecified; Z98.891 History of uterine scar from previous surgery; Z88.0 Allergy status to penicillin; Z83.79 Family history of other diseases of the digestive system
CPT/HCPCS: 74176; 74240; 80048; 80051; 81025; 82310; 82565; 83735; 84100; 84439; 84443; 84520; 85025; 88307; 93005; 93306; 94640; 94760; 94762

== ENCOUNTER 2019-10-24 12:43 | Observation (INO) | payer OTHER ==
[2019-10-24] MEDS ORDERED: IOPAMIDOL CONTRAST (ORAL USE) VIAL PO PRN (12:50)
[2019-10-24] MEDS ORDERED: MORPHINE SULFATE 2 MG/ML SYRINGE IVP STA (12:50)
[2019-10-24] MEDS ORDERED: SODIUM CHLORIDE 0.9% 1,000 ML IV STA ×2 (12:50)
[2019-10-24] MEDS ORDERED: ONDANSETRON 4 MG/2 ML VIAL IVP STA ×2 (12:50→15:08)
[2019-10-24] MEDS ORDERED: FAMOTIDINE 20 MG/2 ML VIAL IV STA (12:51)
--- NOTE | 2019-10-24 12:59 | ED ---
General Adult HPI - General Stated complaint: Post Op Abd Pain/Lethargic Time Seen by Provider: 10/24/19 12:45 Source: patient, EMS, RN notes reviewed Mode of arrival: EMS Limitations: no limitations - History of Present Illness Initial comments: Patient is a pleasant 34-year-old female presenting to the emergency Department with fatigue and nausea. Patient had gastric sleeve done 1 week ago. Patient has had limited oral intake since that time. Limited solids, limited fluids. Patient feels dehydrated and fatigued. Patient does have some discomfort of her upper abdomen. Patient has vomited a couple of times. No diarrhea. No fevers. - Related Data Previous Rx's Medication Instructions Recorded Bisacodyl [Dulcolax] 5 mg PO DAILY PRN #10 tablet. 10/21/19 Omeprazole [PriLOSEC] 40 mg PO DAILY #30 capsule. 10/21/19 Ondansetron Odt [Zofran Odt] 4 mg PO Q8HR PRN #9 tab 10/21/19 Simethicone 40 mg/0.6 ml Drops 40 mg PO PCHS PRN #30 ml 10/21/19 [Mylicon Drops] oxyCODONE HCL/ACETAMINOPHEN 1 tab PO Q6H 3 Days #12 tab 10/21/19 [oxyCODONE HCL/ACETAMINOPHEN 5-325] Allergies Allergy/AdvReac Type Severity Reaction Status Date / Time Penicillins Allergy Unknown Verified 10/24/19 13:29 Childhood Review of Systems ROS Statement: Those systems with pertinent positive or pertinent negative responses have been documented in the HPI. ROS Other: All systems not noted in ROS Statement are negative. Constitutional: Denies: fever Eyes: Denies: eye pain ENT: Denies: ear pain Respiratory: Denies: cough, dyspnea Cardiovascular: Denies: palpitations Endocrine: Reports: fatigue Gastrointestinal: Reports: abdominal pain, nausea, vomiting Genitourinary: Denies: dysuria Musculoskeletal: Denies: back pain Skin: Denies: rash Neurological: Denies: weakness Past Medical History Past Medical History: No Reported History Additional Past Medical History / Comment(s): Gestational diabetes 2017. History of Any Multi-Drug Resistant Organisms: None Reported Past Surgical History: Section Additional Past Surgical History / Comment(s): Cesearean section x2 (2012, 2016) Past Anesthesia/Blood Transfusion Reactions: No Reported Reaction Additional Past Anesthesia/Blood Transfusion Reaction / Comment(s): No transfusion to date Smoking Status: Current every day smoker Additional Past Alcohol Use History / Comment(s): WAS 1/2 pack/day, SMOKED since age 15 (down from 1.5 packs/day), NOW DOWN TO 3 CIGARETTES DAILY USING CHANTIX. - Past Family History Father Additional Family Medical History / Comment(s): crohns General Exam Limitations: no limitations General appearance: alert, in no apparent distress Head exam: Present: normocephalic Eye exam: Present: normal appearance ENT exam: Present: normal oropharynx Neck exam: Present: normal inspection Respiratory exam: Present: normal lung sounds bilaterally Cardiovascular Exam: Present: regular rate, normal rhythm Expanded Peripheral pulses: 2+: Dorsalis Pedis (R), Dorsalis Pedis (L) GI/Abdominal exam: Present: soft, tenderness (Mild epigastric tenderness), normal bowel sounds. Absent: distended, guarding, rebound, rigid, pulsatile mass Extremities exam: Present: normal inspection Neurological exam: Present: alert, oriented X3, CN II-XII intact. Absent: motor sensory deficit Expanded Neurological exam: Present: protecting the airway Speech: Present: fluid speech Motor strength exam: RUE: 5, LUE: 5, RLE: 5, LLE: 5 Eye Response: (4) open spontaneously Motor Response: (6) obeys commands Verbal Response: (5) oriented Psychiatric exam: Present: normal affect, normal mood Skin exam: Present: normal color Course Vital Signs 10/24/19 10/24/19 10/24/19 12:47 13:00 13:30 Temperature 98.2 F Pulse Rate 47 L 45 L 48 L Pulse Rate [ Structural Layout Worker ] Respiratory 16 12 12 Rate Blood Pressure 118/64 118/64 118/67 O2 Sat by Pulse 99 99 99 Oximetry 10/24/19 10/24/19 13:46 14:00 Temperature Pulse Rate 47 L Pulse Rate [ 51 L Structural Layout Worker ] Respiratory 16 Rate Blood Pressure 111/74 O2 Sat by Pulse 100 Oximetry EKG Findings - EKG Comments: EKG Findings:: Sinus bradycardia 46. DC 166. QRS 96. QT 464. QTC 406. Normal axis. Normal QRS. No acute ST change. Medical Decision Making - Medical Decision Making Patient reevaluated and somewhat improved. Patient still feels fatigued. Patient still has some abdominal discomfort. Abdomen is soft with mild upper abdominal tenderness. Patient updated on results. Case was discussed with Dr. Loyola, who will admit his patient with medicine consult. Clear liquids and IV fluids. - Lab Data Result diagrams: 10/24/19 13:15 10/24/19 13:15 Lab Results 10/24/19 10/24/19 10/24/19 Range/Units 13:15 13:15 13:15 WBC 8.0 (3.8-10.6) k/uL RBC 5.12 (3.80-5.40) m/uL Hgb 12.1 (11.4-16.0) gm/dL Hct 39.5 (34.0-46.0) % MCV 77.2 L (80.0-100.0) fL MCH 23.6 L (25.0-35.0) pg MCHC 30.6 L (31.0-37.0) g/dL RDW 15.0 (11.5-15.5) % Plt Count 238 (150-450) k/uL Neutrophils % 71 % Lymphocytes % 19 % Monocytes % 7 % Eosinophils % 2 % Basophils % 0 % Neutrophils # 5.7 (1.3-7.7) k/uL Lymphocytes # 1.5 (1.0-4.8) k/uL Monocytes # 0.5 (0-1.0) k/uL Eosinophils # 0.1 (0-0.7) k/uL Basophils # 0.0 (0-0.2) k/uL Hypochromasia Slight Microcytosis Slight PT 11.7 (9.0-12.0) sec INR 1.2 H (<1.2) APTT 23.3 (22.0-30.0) sec Sodium (137-145) mmol/L Potassium (3.5-5.1) mmol/L Chloride (98-107) mmol/L Carbon Dioxide (22-30) mmol/L Anion Gap mmol/L BUN (7-17) mg/dL Creatinine (0.52-1.04) mg/dL Est GFR (CKD-EPI)AfAm (>60 ml/min/1.73 sqM) Est GFR (CKD-EPI)NonAf (>60 ml/min/1.73 sqM) Glucose (74-99) mg/dL Calcium (8.4-10.2) mg/dL Total Bilirubin (0.2-1.3) mg/dL AST (14-36) U/L ALT (4-34) U/L Alkaline Phosphatase (38-126) U/L Total Protein (6.3-8.2) g/dL Albumin (3.5-5.0) g/dL Amylase (30-110) U/L Lipase (23-300) U/L Urine Color Yellow Urine Appearance Clear (Clear) Urine pH 5.5 (5.0-8.0) Ur Specific [place] 1.023 (1.001-1.035) Urine Protein Negative (Negative) Urine Glucose (UA) Negative (Negative) Urine Ketones 2+ H (Negative) Urine Blood Trace H (Negative) Urine Nitrite Negative (Negative) Urine Bilirubin Negative (Negative) Urine Urobilinogen 2.0 (<2.0) mg/dL Ur Leukocyte Esterase Negative (Negative) Urine RBC 2 (0-5) /hpf Urine WBC 5 (0-5) /hpf Ur Squamous Epith Cells 2 (0-4) /hpf Urine Bacteria Occasional H (None) /hpf Urine Mucus Rare H (None) /hpf 10/24/19 Range/Units 13:15 WBC (3.8-10.6) k/uL RBC (3.80-5.40) m/uL Hgb (11.4-16.0) gm/dL Hct (34.0-46.0) % MCV (80.0-100.0) fL MCH (25.0-35.0) pg MCHC (31.0-37.0) g/dL RDW (11.5-15.5) % Plt Count (150-450) k/uL Neutrophils % % Lymphocytes % % Monocytes % % Eosinophils % % Basophils % % Neutrophils # (1.3-7.7) k/uL Lymphocytes # (1.0-4.8) k/uL Monocytes # (0-1.0) k/uL Eosinophils # (0-0.7) k/uL Basophils # (0-0.2) k/uL Hypochromasia Microcytosis PT (9.0-12.0) sec INR (<1.2) APTT (22.0-30.0) sec Sodium 134 L (137-145) mmol/L Potassium 4.4 (3.5-5.1) mmol/L Chloride 105 (98-107) mmol/L Carbon Dioxide 23 (22-30) mmol/L Anion Gap 6 mmol/L BUN 17 (7-17) mg/dL Creatinine 0.51 L (0.52-1.04) mg/dL Est GFR (CKD-EPI)AfAm >90 (>60 ml/min/1.73 sqM) Est GFR (CKD-EPI)NonAf >90 (>60 ml/min/1.73 sqM) Glucose 72 L (74-99) mg/dL Calcium 8.5 (8.4-10.2) mg/dL Total Bilirubin 1.1 (0.2-1.3) mg/dL AST 51 H (14-36) U/L ALT 154 H (4-34) U/L Alkaline Phosphatase 84 (38-126) U/L Total Protein 6.1 L (6.3-8.2) g/dL Albumin 3.4 L (3.5-5.0) g/dL Amylase 47 (30-110) U/L Lipase 286 (23-300) U/L Urine Color Urine Appearance (Clear) Urine pH (5.0-8.0) Ur Specific [place] (1.001-1.035) Urine Protein (Negative) Urine Glucose (UA) (Negative) Urine Ketones (Negative) Urine Blood (Negative) Urine Nitrite (Negative) Urine Bilirubin (Negative) Urine Urobilinogen (<2.0) mg/dL Ur Leukocyte Esterase (Negative) Urine RBC (0-5) /hpf Urine WBC (0-5) /hpf Ur Squamous Epith Cells (0-4) /hpf Urine Bacteria (None) /hpf Urine Mucus (None) /hpf Disposition Clinical Impression: Dehydration Disposition: ADMITTED IP TO THIS HOSP Is patient prescribed a controlled substance at d/c from ED?: No Referrals: Ale Gibbs MD [Primary Care Provider] - 1-2 days Decision Time: 15:49
[2019-10-24 13:51] LABS: Basophils % (A) 0 %; Eosinophils # (A) 0.1 k/uL (0-0.7); Eosinophils % (A) 2 %; HCT 39.5 % (34.0-46.0); HGB 12.1 gm/dL (11.4-16.0); Hypochromasia Slight; Lymphocytes # (A) 1.5 k/uL (1.0-4.8); Lymphocytes % (A) 19 %; MCH 23.6 pg (25.0-35.0); MCHC 30.6 g/dL (31.0-37.0); MCV 77.2 fL (80.0-100.0); Mean Platelet Volume 7.5; Microcytosis Slight; Monocytes # (A) 0.5 k/uL (0-1.0); Monocytes % (A) 7 %; Neutrophils # (A) 5.7 k/uL (1.3-7.7); Neutrophils % (A) 71 %; Platelet Count 238 k/uL (150-450); RBC 5.12 m/uL (3.80-5.40)
[2019-10-24 13:54] LABS: INR 1.2 (<1.2); Partial Thromboplastin Time 23.3 sec (22.0-30.0); Prothrombin Time 11.7 sec (9.0-12.0)
[2019-10-24 14:02] LABS: Appearance,Urine Clear (Clear); Bacteria,Urine Occasional /hpf; Bilirubin,Urine Negative (Negative); Blood,Urine Trace (Negative); Color,Urine Yellow; Glucose,Urine (UA) Negative (Negative); Ketones,Urine 2+ (Negative); Leukocyte Esterase,Urine Negative (Negative); Mucus,Urine Rare /hpf; Nitrite,Urine Negative (Negative); PH, Urine 5.5 (5.0-8.0); Protein,Urine Negative (Negative); RBC,Urine 2 /hpf (0-5); Specific Gravity,Urine 1.023 (1.001-1.035); Squamous Epithelial Cell,Urine 2 /hpf (0-4); WBC,Urine 5 /hpf (0-5)
[2019-10-24 14:28] LABS: ALT 154 U/L (4-34); AST 51 U/L (14-36); African American GFR (CKD) >90 (>60 ml/min/1.73 sqM); Albumin 3.4 g/dL (3.5-5.0); Alkaline Phosphatase 84 U/L (38-126); Amylase 47 U/L (30-110); Anion Gap 6 mmol/L; Blood Urea Nitrogen 17 mg/dL (7-17); Calcium 8.5 mg/dL (8.4-10.2); Carbon Dioxide 23 mmol/L (22-30); Chloride 105 mmol/L (98-107); Glucose 72 mg/dL (74-99); Non-African American GFR(CKD) >90 (>60 ml/min/1.73 sqM); Potassium 4.4 mmol/L (3.5-5.1); Sodium 134 mmol/L (137-145); Total Bilirubin 1.1 mg/dL (0.2-1.3); Total Protein 6.1 g/dL (6.3-8.2)
--- NOTE | 2019-10-24 14:53 | CT ---
EXAMINATION TYPE: CT abdomen pelvis w con DATE OF EXAM: 10/24/2019 COMPARISON: Prior CT 10/19/2019 HISTORY: Nausea, vomiting and pain. Gastric sleeve 10-17-19. Bariatric prep. CT DLP: 2255.1 mGycm Automated exposure control for dose reduction was used. TECHNIQUE: Helical acquisition of images from the lung bases through the pelvis have been completed. CONTRAST: Performed with Oral Contrast and with IV Contrast, patient injected with 100 mL of Isovue 300. FINDINGS: Patient shows post gastric sleeve change as on prior. No evident obstruction to flow, contr ast material is present within the proximal small bowel LUNG BASES: Small pleural effusion on the left with some associated atelectatic change is noted AORTA: No significant abnormality is appreciated. LIVER/GB: No significant abnormality is appreciated. PANCREAS: No significant abnormality is seen. SPLEEN: Enlarged at 13.9 cm as on prior. ADRENALS: No significant abnormality is seen. KIDNEYS: Punctate nonobstructive calculus present at the lower pole left kidney as on prior exam. REPRODUCTIVE ORGANS: Probable right ovarian cyst measuring approximately 2.6 cm similar to prior. BOWEL: No contrast material is present within the colon.. FREE AIR: No Free Air visible. ASCITES: None visible. PELVIC ADENOPATHY: None visualized. RETROPERITONEAL ADENOPATHY: No Retroperitoneal Adenopathy visible. URINARY BLADDER: No significant abnormality is seen. OSSEOUS STRUCTURES: There are some degenerative disc changes noted within the lumbar spine. IMPRESSION: SMALL LEFT PLEURAL EFFUSION. POSTOP CHANGES. STABLE SPLENOMEGALY. PROBABLE RIGHT OVARIAN CYST. No jesus dent obstruction.
[2019-10-24] MEDS ORDERED: MORPHINE SULFATE 4 MG/ML SYRINGE IVP STA (15:08)
[2019-10-24] MEDS ORDERED: ONDANSETRON 4 MG/2 ML VIAL IVP PRN (15:49)
[2019-10-24] MEDS ORDERED: MORPHINE SULFATE 4 MG/ML SYRINGE IV PRN (15:49)
[2019-10-24] MEDS ORDERED: NALOXONE 0.4 MG/ML 1 ML VIAL IV PRN (15:49)
[2019-10-24] MEDS: SODIUM CHLORIDE 0.9% 1,000 ML IV SCH (20:43)
[2019-10-25] MEDS: SODIUM CHLORIDE 0.9% 1,000 ML IV SCH ×3 (04:12→21:35)
[2019-10-25 06:13] LABS: Basophils % (A) 0 %; Eosinophils # (A) 0.1 k/uL (0-0.7); Eosinophils % (A) 2 %; HCT 37.4 % (34.0-46.0); HGB 11.6 gm/dL (11.4-16.0); Hypochromasia Marked; Lymphocytes # (A) 1.5 k/uL (1.0-4.8); Lymphocytes % (A) 21 %; MCH 24.6 pg (25.0-35.0); MCV 79.2 fL (80.0-100.0); Mean Platelet Volume 7.4; Monocytes # (A) 0.4 k/uL (0-1.0); Monocytes % (A) 5 %; Neutrophils # (A) 5.2 k/uL (1.3-7.7); Neutrophils % (A) 71 %; Platelet Count 211 k/uL (150-450); RBC 4.72 m/uL (3.80-5.40); RDW 14.5 % (11.5-15.5); WBC 7.4 k/uL (3.8-10.6)
--- NOTE | 2019-10-25 06:13 | CONS ---
CONSULTATION DATE OF SERVICE: 10/24/2019 REASON FOR CONSULTATION: Advice regarding bradycardia and other multiple medical issues requested by Dr. Bledsoe. HISTORY OF PRESENT ILLNESS: This is a 34-year-old woman with a past medical history of gestational diabetes mellitus, being followed by Dr. Gibbs in the outpatient setting underwent laparoscopic sleeve gastrectomy by Dr. Bledsoe last week. The patient went home and subsequently patient unable to keep anything down. The patient came back to the hospital and was admitted for further evaluation. Patient also had bradycardia which was evaluated with Cardiology. The EKG shows sinus bradycardia in 40s. There is no history of chest pain, palpitation, headache, loss of consciousness or seizures. PAST MEDICAL HISTORY: History of gestational diabetes, history of recent gastric sleeve surgery. HOME MEDICATIONS: 1. Oxycodone 1 tablet q.6 p.r.n. 2. Simethicone. 3. Zofran 4 mg q.8 p.r.n. 4. Prilosec 40 mg daily. 5. Dulcolax 5 mg daily p.r.n. ALLERGIES: PENICILLIN. FAMILY HISTORY: History of Crohn's disease in the family. SOCIAL HISTORY: Previous history of smoking. No history of current smoking or alcohol intake. REVIEW OF SYSTEMS: ENT: No diminished hearing or diminished vision. CARDIOVASCULAR SYSTEM: As mentioned earlier. RESPIRATORY SYSTEM: As mentioned earlier. GI: As mentioned earlier. : No dysuria. NERVOUS SYSTEM: No numbness or weakness. ALLERGY/IMMUNOLOGY: No asthma or hayfever. MUSCULOSKELETAL: As mentioned earlier. HEMATOLOGY/ONCOLOGY: No history anemia. ENDOCRINE: No history of diabetes currently. CONSTITUTIONAL: As mentioned earlier. DERMATOLOGY: Negative. RHEUMATOLOGY: Negative. PSYCHIATRY: As mentioned earlier. PHYSICAL EXAMINATION: The patient is alert and oriented x3. Pulse is 45, blood pressure 102/65, respiration 18, temperature 97.8 pulse ox 98% on room air. HEENT: Conjunctivae normal. Oral mucosa dry. NECK: No jugular venous distention. No carotid bruit. No lymph node enlargement. CARDIOVASCULAR: S1, S2 muffled. Bradycardic. No murmur. No thrills. RESPIRATORY: Breath sounds diminished at the bases. No rhonchi. No crackles. ABDOMEN: Soft, nontender. No mass palpable. Healed scars. No ascites. LEGS: No edema, no swelling. NERVOUS SYSTEM: Higher function as mentioned earlier. Moves all 4 limbs. No focal motor or sensory deficits. LYMPHATICS: No lymphadenopathy of the neck, axillae or groin. SKIN: No ulcer, rash or bleeding. JOINTS: No active deforming arthropathy. LABS: WBC 8, hemoglobin 12.1, MCV 77.2. Sodium 134. Glucose 72. AST is 51, ALT is 154. ASSESSMENT: 1. Recent laparoscopic sleeve gastrectomy. 2. Sinus bradycardia. 3. Vomiting and dehydration. 4. Stable splenomegaly on the CAT scan of undetermined etiology. 5. Hyponatremia. 6. Increased AST, ALT. 7. Mild microcytosis. 8. History of gestational diabetes mellitus. 9. History of section. 10.Remote history of nicotine dependence. 11.Obesity with body mass index of 42.9. 12.FULL CODE. RECOMMENDATIONS AND DISCUSSION: This 34-year-old woman presented with multiple complex medical issues, at this time I recommend to continue current medications, continue symptomatic treatment, IV fluids. Monitor heart rate closely. The abdomen pelvis CAT scan was done which shows small left pleural effusion. Otherwise postoperative changes and stable splenomegaly. We will continue the current medications. Repeat labs. IV fluids. We will follow the patient closely with you. I would also recommend TSH with reflex to free T4 and I would recommend close followup with primary physician after discharge. Thank you Dr. Bledsoe for letting us participate in the care this patient. MMODL / IJN: [id number] /
[2019-10-25 06:19] LABS: ALT 131 U/L (4-34); AST 36 U/L (14-36); African American GFR (CKD) >90 (>60 ml/min/1.73 sqM); Albumin 3.1 g/dL (3.5-5.0); Alkaline Phosphatase 79 U/L (38-126); Anion Gap 5 mmol/L; Blood Urea Nitrogen 10 mg/dL (7-17); Calcium 8.3 mg/dL (8.4-10.2); Carbon Dioxide 26 mmol/L (22-30); Chloride 106 mmol/L (98-107); Glucose 69 mg/dL (74-99); Non-African American GFR(CKD) >90 (>60 ml/min/1.73 sqM); Potassium 4.6 mmol/L (3.5-5.1); Sodium 137 mmol/L (137-145); Total Bilirubin 1.2 mg/dL (0.2-1.3); Total Protein 5.8 g/dL (6.3-8.2)
[2019-10-25] MEDS: PANTOPRAZOLE 40 MG/10 ML VIAL IV SCH (08:08)
--- NOTE | 2019-10-25 10:35 | P.GSHP ---
<Lily Monterroso Dayday - Last Filed: 10/25/19 10:33> History of Present Illness H&P Date: 10/25/19 Chief Complaint: weakness, dehydration, nausea, vomiting CHIEF COMPLAINT: nausea, vomiting, weakness HISTORY OF PRESENT ILLNESS: 34-year-old female who underwent laparoscopic sleeve gastrectomy with Dr. Bledsoe on 10/17/2019. Patient had an obstruction postoper atively and was placed on IV Decadron. She also developed bradycardia during hospitalization and was followed by cardiology, though she remained asymptomatic. She was discharged home on 10/21/2019 in stable condition. Patient states she has been feeling weak over the past few days. She reports n ausea and vomiting that started Thursday. She continues to complain of the feeling that liquids are getting "stuck". PAST MEDICAL HISTORY: See list. PAST SURGICAL HISTORY: See list. SOCIAL HISTORY: No illicit drug use. REVIEW OF SYSTEMS: CONSTITUTIONAL: Denies fever or chills. Reports weakness. HEENT: Denies blurred vision, vision changes, or eye pain. Denies hemoptysis CARDIOVASCULAR: Denies chest pain or pressure. RESPIRATORY: No shortness of breath. GASTROINTESTINAL: Refer to HPI for pertinent findings HEMATOLOGIC: Denies bleeding disorders. GENITOURINARY: Denies any blood in urine. SKIN: Denies pruitis. Denies rash. PHYSICAL EXAM: VITAL SIGNS: Reviewed. GENERAL: Well-developed in no acute distress. HEENT: No sclera icterus. Extraocular movements grossly intact. Moist buccal mucosa. Head is atraumatic, normocephalic. ABDOMEN: Soft. Nondistended. Nontender. Surgical sites clean dry intact. NEUROLOGIC: Alert and oriented. Cranial nerves II through XII grossly intact. LABORATORY DATA: WBC 7.4. Hemoglobin 11.6. Platelet count 211. Sodium 137. Potassium 4.6. BUN 10. Creatinine 0.60. IMAGING: CT abdomen and pelvis: Small left pleural effusion. Stable splenomegaly. Proba ble right ovarian cyst. No evident obstruction. ASSESSMENT: 1. Nausea and vomiting 2. Recent laparoscopic sleeve gastrectomy, 10/17/2019 with postoperative obstruction PLAN: -Continue IV fluids -Continue clear liquids as tolerated -Obtain UGI to evaluate for possible obstruction Nurse practitioner note has been reviewed by physician. Signing provider agrees with the documented findings, assessment, and plan of care. Past Medical History Past Medical History: No Reported History Additional Past Medical History / Comment(s): Gestational diabetes 2017. History of Any Multi-Drug Resistant Organisms: None Reported Past Surgical History: Bariatric Surgery, Section Additional Past Surgical History / Comment(s): Cesearean section x2 (2012, 2016), gastric sleeve 10/17/19 Past Anesthesia/Blood Transfusion Reactions: No Reported Reaction Additional Past Anesthesia/Blood Transfusion Reaction / Comment(s): No transfusion to date Past Psychological History: No Psychological Hx Reported Smoking Status: Former smoker Past Alcohol Use History: None Reported Additional Past Alcohol Use History / Comment(s): WAS 1/2 pack/day, SMOKED since age 15 (down from 1.5 packs/day), NOW DOWN TO 3 CIGARETTES DAILY USING CHANTIX. Past Drug Use History: None Reported - Past Family History Father Additional Family Medical History / Comment(s): crohns Medications and Allergies Home Medications Medication Instructions Recorded Confirmed Type Bisacodyl [Dulcolax] 5 mg PO DAILY PRN #10 tablet. 10/21/19 10/24/19 Rx Omeprazole [PriLOSEC] 40 mg PO DAILY #30 capsule. 10/21/19 10/24/19 Rx Ondansetron Odt [Zofran Odt] 4 mg PO Q8HR PRN #9 tab 10/21/19 10/24/19 Rx Simethicone 40 mg/0.6 ml Drops 40 mg PO PCHS PRN #30 ml 10/21/19 10/24/19 Rx [Mylicon Drops] oxyCODONE HCL/ACETAMINOPHEN 1 tab PO Q6H 3 Days #12 tab 10/21/19 10/24/19 Rx [oxyCODONE HCL/ACETAMINOPHEN 5-325] Allergies Allergy/AdvReac Type Severity Reaction Status Date / Time Penicillins Allergy Unknown Verified 10/24/19 13:29 Childhood Surgical - Exam Vital Signs Temp Pulse Resp BP Pulse Ox 98.2 F 47 L 16 118/64 99 10/24/19 12:47 10/24/19 12:47 10/24/19 12:47 10/24/19 12:47 10/24/19 12:47 Results - Labs 10/25/19 05:36 10/25/19 05:36 Abnormal Lab Results - Last 24 Hours (Table) 10/24/19 10/24/19 10/24/19 Range/Units 13:15 13:15 13:15 MCV 77.2 L (80.0-100.0) fL MCH 23.6 L (25.0-35.0) pg MCHC 30.6 L (31.0-37.0) g/dL INR 1.2 H (<1.2) Sodium (137-145) mmol/L Creatinine (0.52-1.04) mg/dL Glucose (74-99) mg/dL Calcium (8.4-10.2) mg/dL AST (14-36) U/L ALT (4-34) U/L Total Protein (6.3-8.2) g/dL Albumin (3.5-5.0) g/dL Urine Ketones 2+ H (Negative) Urine Blood Trace H (Negative) Urine Bacteria Occasional H (None) /hpf Urine Mucus Rare H (None) /hpf 10/24/19 10/25/19 10/25/19 Range/Units 13:15 05:36 05:36 MCV 79.2 L (80.0-100.0) fL MCH 24.6 L (25.0-35.0) pg MCHC (31.0-37.0) g/dL INR (<1.2) Sodium 134 L (137-145) mmol/L Creatinine 0.51 L (0.52-1.04) mg/dL Glucose 72 L 69 L (74-99) mg/dL Calcium 8.3 L (8.4-10.2) mg/dL AST 51 H (14-36) U/L ALT 154 H 131 H (4-34) U/L Total Protein 6.1 L 5.8 L (6.3-8.2) g/dL Albumin 3.4 L 3.1 L (3.5-5.0) g/dL Urine Ketones (Negative) Urine Blood (Negative) Urine Bacteria (None) /hpf Urine Mucus (None) /hpf Diabetes panel 10/24/19 10/25/19 Range/Units 13:15 05:36 Sodium 134 L 137 (137-145) mmol/L Potassium 4.4 4.6 (3.5-5.1) mmol/L Chloride 105 106 (98-107) mmol/L Carbon Dioxide 23 26 (22-30) mmol/L BUN 17 10 (7-17) mg/dL Creatinine 0.51 L 0.60 (0.52-1.04) mg/dL Glucose 72 L 69 L (74-99) mg/dL Calcium 8.5 8.3 L (8.4-10.2) mg/dL AST 51 H 36 (14-36) U/L ALT 154 H 131 H (4-34) U/L Alkaline Phosphatase 84 79 (38-126) U/L Total Protein 6.1 L 5.8 L (6.3-8.2) g/dL Albumin 3.4 L 3.1 L (3.5-5.0) g/dL Thyroid panel 10/25/19 Range/Units 05:36 TSH 1.480 (0.465-4.680) mIU/L Calcium panel 10/24/19 10/25/19 Range/Units 13:15 05:36 Calcium 8.5 8.3 L (8.4-10.2) mg/dL Albumin 3.4 L 3.1 L (3.5-5.0) g/dL Pituitary panel 10/24/19 10/25/19 Range/Units 13:15 05:36 Sodium 134 L 137 (137-145) mmol/L Potassium 4.4 4.6 (3.5-5.1) mmol/L Chloride 105 106 (98-107) mmol/L Carbon Dioxide 23 26 (22-30) mmol/L BUN 17 10 (7-17) mg/dL Creatinine 0.51 L 0.60 (0.52-1.04) mg/dL Glucose 72 L 69 L (74-99) mg/dL Calcium 8.5 8.3 L (8.4-10.2) mg/dL TSH 1.480 (0.465-4.680) mIU/L Adrenal panel 10/24/19 10/25/19 Range/Units 13:15 05:36 Sodium 134 L 137 (137-145) mmol/L Potassium 4.4 4.6 (3.5-5.1) mmol/L Chloride 105 106 (98-107) mmol/L Carbon Dioxide 23 26 (22-30) mmol/L BUN 17 10 (7-17) mg/dL Creatinine 0.51 L 0.60 (0.52-1.04) mg/dL Glucose 72 L 69 L (74-99) mg/dL Calcium 8.5 8.3 L (8.4-10.2) mg/dL Total Bilirubin 1.1 1.2 (0.2-1.3) mg/dL AST 51 H 36 (14-36) U/L ALT 154 H 131 H (4-34) U/L Alkaline Phosphatase 84 79 (38-126) U/L Total Protein 6.1 L 5.8 L (6.3-8.2) g/dL Albumin 3.4 L 3.1 L (3.5-5.0) g/dL <Eyal Bledsoe - Last Filed: 10/25/19 15:47> History of Present Illness As above. Patient returned to the hospital complaining of fatigue and dysphagia. On Thursday she was able to tolerate approximately 45 ounces of liquids. On Thursday only about 20 ounces. Yesterday afternoon patient was feeling weaker and came to the hospital for evaluation. Computed tomography scan performed through the ER showed no evidence of leak. Repeat esophagram shows delay at the proximal aspect of the sleeve without complete obstruction or leak. Doing better currently. Continue IV hydration. Continue encouraging increased liquid intake. Surgical - Exam Vital Signs Temp Pulse Resp BP Pulse Ox 98.2 F 47 L 16 118/64 99 10/24/19 12:47 10/24/19 12:47 10/24/19 12:47 10/24/19 12:47 10/24/19 12:47 Results - Labs 10/25/19 05:36 10/25/19 05:36 Abnormal Lab Results - Last 24 Hours (Table) 10/25/19 10/25/19 Range/Units 05:36 05:36 MCV 79.2 L (80.0-100.0) fL MCH 24.6 L (25.0-35.0) pg Glucose 69 L (74-99) mg/dL Calcium 8.3 L (8.4-10.2) mg/dL ALT 131 H (4-34) U/L Total Protein 5.8 L (6.3-8.2) g/dL Albumin 3.1 L (3.5-5.0) g/dL Diabetes panel 10/25/19 Range/Units 05:36 Sodium 137 (137-145) mmol/L Potassium 4.6 (3.5-5.1) mmol/L Chloride 106 (98-107) mmol/L Carbon Dioxide 26 (22-30) mmol/L BUN 10 (7-17) mg/dL Creatinine 0.60 (0.52-1.04) mg/dL Glucose 69 L (74-99) mg/dL Calcium 8.3 L (8.4-10.2) mg/dL AST 36 (14-36) U/L ALT 131 H (4-34) U/L Alkaline Phosphatase 79 (38-126) U/L Total Protein 5.8 L (6.3-8.2) g/dL Albumin 3.1 L (3.5-5.0) g/dL Thyroid panel 10/25/19 Range/Units 05:36 TSH 1.480 (0.465-4.680) mIU/L Calcium panel 10/25/19 Range/Units 05:36 Calcium 8.3 L (8.4-10.2) mg/dL Albumin 3.1 L (3.5-5.0) g/dL Pituitary panel 10/25/19 Range/Units 05:36 Sodium 137 (137-145) mmol/L Potassium 4.6 (3.5-5.1) mmol/L Chloride 106 (98-107) mmol/L Carbon Dioxide 26 (22-30) mmol/L BUN 10 (7-17) mg/dL Creatinine 0.60 (0.52-1.04) mg/dL Glucose 69 L (74-99) mg/dL Calcium 8.3 L (8.4-10.2) mg/dL TSH 1.480 (0.465-4.680) mIU/L Adrenal panel 10/25/19 Range/Units 05:36 Sodium 137 (137-145) mmol/L Potassium 4.6 (3.5-5.1) mmol/L Chloride 106 (98-107) mmol/L Carbon Dioxide 26 (22-30) mmol/L BUN 10 (7-17) mg/dL Creatinine 0.60 (0.52-1.04) mg/dL Glucose 69 L (74-99) mg/dL Calcium 8.3 L (8.4-10.2) mg/dL Total Bilirubin 1.2 (0.2-1.3) mg/dL AST 36 (14-36) U/L ALT 131 H (4-34) U/L Alkaline Phosphatase 79 (38-126) U/L Total Protein 5.8 L (6.3-8.2) g/dL Albumin 3.1 L (3.5-5.0) g/dL
--- NOTE | 2019-10-25 13:15 | FL ---
EXAMINATION TYPE: FL UGI w esophagus DATE OF EXAM: 10/25/2019 COMPARISON: 10/19/2019 HISTORY: Gastric sleeve on 10/17/2019 with subsequent dysphagia TECHNIQUE: A single contrast UGI study is performed with Isovue 300 and 57 seconds of fluoroscopy ti me with 27 images saved. FINDINGS: As seen on the prior there is slight narrowing of the proximal suture line of the gastric sleeve resu lting in a mild delay of flow of contrast along the gastric sleeve however subsequent flow is seen ex tending into the remainder the gastric sleeve and proximal small bowel without obstruction. IMPRESSIONS: Redemonstration of narrowing of the proximal suture line of the gastric sleeve resulting in a mild de lay of flow from the distal esophagus through the gastric sleeve. No contrast extravasation seen.
--- NOTE | 2019-10-25 18:18 | P.PN ---
Subjective Patient is able to tolerate some of her diet. Still having some discomfort in the lower esophageal area. Upper GI fluoroscopy showed narrowing of the proximal suture line of the gastric sleeve and mild delay of the flow into the distal esophagus to the sleep Constitutional: Denied any fatigue denied any fever. Cardio vascular: denied any chest pain, palpitations Gastrointestinal denied any nausea vomiting Pulmonary: Denied any shortness of breath cough Neurologic denied any new focal deficits All inpatient medications were reviewed and appropriate changes in these medications as dictated in the interval history and assessment and plan. Objective - Vital Signs Vital signs: Vital Signs Temp 98.2 F 10/25/19 16:00 Pulse 47 L 10/25/19 16:00 Resp 14 10/25/19 16:00 BP 152/62 10/25/19 16:00 Pulse Ox 97 10/25/19 16:00 Intake & Output 10/24/19 10/25/19 10/25/19 18:59 06:59 18:59 Intake Total 720 520 Balance 720 520 Weight 109.769 kg Intake: Intake, IV Titration 720 Amount Sodium Chloride 0.9% 1, 720 000 ml @ 120 mls/hr IV . Q8H20M [facility] Rx#:[id number] Oral 420 Other 100 Other: Voiding Method Toilet Toilet Toilet # Voids 2 1 - Exam PHYSICAL EXAMINATION: GENERAL: The patient is alert and oriented x3, not in any acute distress. Well developed, well nourished. HEENT: Pupils are round and equally reacting to light. EOMI. No scleral icterus. No conjunctival pallor. Normocephalic, atraumatic. No pharyngeal erythema. No thyromegaly. CARDIOVASCULAR: S1 and S2 present. No murmurs, rubs, or gallops. PULMONARY: Chest is clear to auscultation, no wheezing or crackles. ABDOMEN: Soft, nontender, nondistended, normoactive bowel sounds. No palpable organomegaly. MUSCULOSKELETAL: No joint swelling or deformity. EXTREMITIES: No cyanosis, clubbing, or pedal edema. NEUROLOGICAL: Gross neurological examination did not reveal any focal deficits. SKIN: No rashes. - Labs CBC & Chem 7: 10/25/19 05:36 10/25/19 05:36 Labs: Abnormal Lab Results - Last 24 Hours (Table) 10/25/19 10/25/19 Range/Units 05:36 05:36 MCV 79.2 L (80.0-100.0) fL MCH 24.6 L (25.0-35.0) pg Glucose 69 L (74-99) mg/dL Calcium 8.3 L (8.4-10.2) mg/dL ALT 131 H (4-34) U/L Total Protein 5.8 L (6.3-8.2) g/dL Albumin 3.1 L (3.5-5.0) g/dL Assessment and Plan Plan: -Nausea vomiting post the sleeve gastrectomy with some narrowing in the mid esophageal area: Patient's diet is being slowly advanced for further management as per general surgery -Sinus bradycardia patient was extensively evaluated during her last hospital physician of further intervention patient is a symptomatic can be related to nausea and pain particularly in the esophageal area where there is significant vagal innervation -Gastroesophageal reflux disease
[2019-10-26] MEDS: SODIUM CHLORIDE 0.9% 1,000 ML IV SCH ×3 (02:55→22:57)
[2019-10-26] MEDS: PANTOPRAZOLE 40 MG/10 ML VIAL IV SCH (07:53)
--- NOTE | 2019-10-26 09:52 | P.PN ---
<Lily Monterroso - Last Filed: 10/26/19 09:23> Subjective Progress Note Date: 10/26/19 CHIEF COMPLAINT: nausea, vomiting, weakness HISTORY OF PRESENT ILLNESS: Patient examined this morning at the bedside. Patient continues to report liquids occasionally feeling stuck. No nausea or vomiting this morning. Patient has not consumed any liquids this morning at the time of my examination. She continues to feel weak. PHYSICAL EXAM: VITAL SIGNS: Reviewed. GENERAL: Well-developed in no acute distress. HEENT: No sclera icterus. Extraocular movements grossly intact. Moist buccal mucosa. Head is atraumatic, normocephalic. ABDOMEN: Soft. Nondistended. Nontender. Surgical sites clean dry intact. NEUROLOGIC: Alert and oriented. Cranial nerves II through XII grossly intact. ASSESSMENT: 1. Nausea and vomiting 2. Recent laparoscopic sleeve gastrectomy, 10/17/2019 with postoperative obstruction PLAN: -Continue IV fluids -Continue clear liquids as tolerated -Possible discharge this afternoon if oral intake is adequate Nurse practitioner note has been reviewed by physician. Signing provider agrees with the documented findings, assessment, and plan of care. Objective - Vital Signs Vital signs: Vital Signs Temp 97.9 F 10/26/19 08:00 Pulse 51 L 10/26/19 08:00 Resp 14 10/26/19 08:00 BP 117/57 10/26/19 08:00 Pulse Ox 96 10/26/19 04:00 Intake & Output 10/25/19 10/26/19 10/26/19 18:59 06:59 18:59 Intake Total 520 Balance 520 Intake: Oral 420 Other 100 Other: Voiding Method Toilet Toilet Toilet # Voids 1 2 1 - Labs CBC & Chem 7: 10/25/19 05:36 10/25/19 05:36 <Eyal Bledsoe - Last Filed: 10/26/19 12:49> Subjective As above. Patient has had about 10 ounces of liquids today. Does feel more alert however. Still with mild dysphagia. Upper GI noted. Continue encouraging oral intake. Clear ensure as well. Objective - Vital Signs Vital signs: Vital Signs Temp 98.1 F 10/26/19 11:43 Pulse 51 L 10/26/19 11:55 Resp 14 10/26/19 11:55 BP 121/66 06/10/20 11:43 Pulse Ox 99 10/26/19 11:43 Intake & Output 10/25/19 10/26/19 10/26/19 18:59 06:59 18:59 Intake Total 520 Balance 520 Weight 109.769 kg Intake: Oral 420 Other 100 Other: Voiding Method Toilet Toilet Toilet # Voids 1 2 1 - Labs CBC & Chem 7: 10/26/19 09:06 10/26/19 09:06 Labs: Abnormal Lab Results - Last 24 Hours (Table) 10/26/19 10/26/19 Range/Units 09:06 09:06 Hgb 11.3 L (11.4-16.0) gm/dL MCV 78.9 L (80.0-100.0) fL Sodium 136 L (137-145) mmol/L Glucose 70 L (74-99) mg/dL AST 43 H (14-36) U/L ALT 128 H (4-34) U/L Total Protein 5.9 L (6.3-8.2) g/dL Albumin 3.3 L (3.5-5.0) g/dL
[2019-10-26 09:56] LABS: Basophils % (A) 0 %; Eosinophils # (A) 0.1 k/uL (0-0.7); Eosinophils % (A) 2 %; HCT 35.5 % (34.0-46.0); HGB 11.3 gm/dL (11.4-16.0); Hypochromasia Marked; Lymphocytes # (A) 1.3 k/uL (1.0-4.8); Lymphocytes % (A) 21 %; MCH 25.1 pg (25.0-35.0); MCHC 31.8 g/dL (31.0-37.0); MCV 78.9 fL (80.0-100.0); Mean Platelet Volume 7.5; Monocytes # (A) 0.4 k/uL (0-1.0); Monocytes % (A) 6 %; Neutrophils # (A) 4.4 k/uL (1.3-7.7); Neutrophils % (A) 69 %; Platelet Count 207 k/uL (150-450); RDW 14.4 % (11.5-15.5); WBC 6.3 k/uL (3.8-10.6)
[2019-10-26 10:18] LABS: ALT 128 U/L (4-34); AST 43 U/L (14-36); African American GFR (CKD) >90 (>60 ml/min/1.73 sqM); Albumin 3.3 g/dL (3.5-5.0); Alkaline Phosphatase 105 U/L (38-126); Anion Gap 7 mmol/L; Blood Urea Nitrogen 8 mg/dL (7-17); Calcium 8.5 mg/dL (8.4-10.2); Carbon Dioxide 24 mmol/L (22-30); Chloride 105 mmol/L (98-107); Glucose 70 mg/dL (74-99); Non-African American GFR(CKD) >90 (>60 ml/min/1.73 sqM); Potassium 4.1 mmol/L (3.5-5.1); Sodium 136 mmol/L (137-145); Total Bilirubin 0.9 mg/dL (0.2-1.3); Total Protein 5.9 g/dL (6.3-8.2)
[2019-10-26 11:19] VITALS: BMI 42.8
--- NOTE | 2019-10-26 14:43 | P.PN ---
Subjective Patient is able to tolerate some of her diet. Still having some discomfort in the lower esophageal area. Upper GI fluoroscopy showed narrowing of the proximal suture line of the gastric sleeve and mild delay of the flow into the distal esophagus to the sleep. 10/26/2019 Patient is able to tolerate some diet. Gen. surgery will evaluate him later and will decide on her discharge. Constitutional: Denied any fatigue denied any fever. Cardio vascular: denied any chest pain, palpitations Gastrointestinal denied any nausea vomiting Pulmonary: Denied any shortness of breath cough Neurologic denied any new focal deficits All inpatient medications were reviewed and appropriate changes in these medications as dictated in the interval history and assessment and plan. Objective - Vital Signs Vital signs: Vital Signs Temp 98.1 F 10/26/19 11:43 Pulse 51 L 10/26/19 11:55 Resp 14 10/26/19 11:55 BP 121/66 10/26/19 11:43 Pulse Ox 99 10/26/19 11:43 Intake & Output 10/25/19 10/26/19 10/26/19 18:59 06:59 18:59 Intake Total 520 480 Balance 520 480 Weight 109.769 kg Intake: Oral 420 480 Other 100 Other: Voiding Method Toilet Toilet Toilet # Voids 1 2 1 - Exam PHYSICAL EXAMINATION: GENERAL: The patient is alert and oriented x3, not in any acute distress. Well developed, well nourished. HEENT: Pupils are round and equally reacting to light. EOMI. No scleral icterus. No conjunctival pallor. Normocephalic, atraumatic. No pharyngeal erythema. No thyromegaly. CARDIOVASCULAR: S1 and S2 present. No murmurs, rubs, or gallops. PULMONARY: Chest is clear to auscultation, no wheezing or crackles. ABDOMEN: Soft, nontender, nondistended, normoactive bowel sounds. No palpable organomegaly. MUSCULOSKELETAL: No joint swelling or deformity. EXTREMITIES: No cyanosis, clubbing, or pedal edema. NEUROLOGICAL: Gross neurological examination did not reveal any focal deficits. SKIN: No rashes. - Labs CBC & Chem 7: 10/26/19 09:06 10/26/19 09:06 Labs: Abnormal Lab Results - Last 24 Hours (Table) 10/26/19 10/26/19 Range/Units 09:06 09:06 Hgb 11.3 L (11.4-16.0) gm/dL MCV 78.9 L (80.0-100.0) fL Sodium 136 L (137-145) mmol/L Glucose 70 L (74-99) mg/dL AST 43 H (14-36) U/L ALT 128 H (4-34) U/L Total Protein 5.9 L (6.3-8.2) g/dL Albumin 3.3 L (3.5-5.0) g/dL Assessment and Plan Plan: -Nausea vomiting post the sleeve gastrectomy with some narrowing in the mid esophageal area: Patient's diet is being slowly advanced for further management as per general surgery -Sinus bradycardia patient was extensively evaluated during her last hospital physician of further intervention patient is a symptomatic can be related to nausea and pain particularly in the esophageal area where there is significant vagal innervation -Gastroesophageal reflux disease
[2019-10-27] MEDS: SODIUM CHLORIDE 0.9% 1,000 ML IV SCH (05:09)
[2019-10-27 06:29] LABS: Basophils % (A) 0 %; Eosinophils # (A) 0.1 k/uL (0-0.7); Eosinophils % (A) 2 %; HCT 35.5 % (34.0-46.0); HGB 11.2 gm/dL (11.4-16.0); Hypochromasia Marked; Lymphocytes # (A) 1.5 k/uL (1.0-4.8); Lymphocytes % (A) 28 %; MCHC 31.5 g/dL (31.0-37.0); MCV 79.2 fL (80.0-100.0); Mean Platelet Volume 7.5; Monocytes # (A) 0.4 k/uL (0-1.0); Monocytes % (A) 7 %; Neutrophils # (A) 3.3 k/uL (1.3-7.7); Neutrophils % (A) 61 %; Platelet Count 186 k/uL (150-450); RBC 4.49 m/uL (3.80-5.40); RDW 14.6 % (11.5-15.5); WBC 5.4 k/uL (3.8-10.6)
[2019-10-27 06:59] LABS: ALT 107 U/L (4-34); AST 28 U/L (14-36); African American GFR (CKD) >90 (>60 ml/min/1.73 sqM); Albumin 3.1 g/dL (3.5-5.0); Alkaline Phosphatase 103 U/L (38-126); Anion Gap 6 mmol/L; Blood Urea Nitrogen 5 mg/dL (7-17); Calcium 8.4 mg/dL (8.4-10.2); Carbon Dioxide 25 mmol/L (22-30); Chloride 106 mmol/L (98-107); Glucose 77 mg/dL (74-99); Non-African American GFR(CKD) >90 (>60 ml/min/1.73 sqM); Potassium 4.1 mmol/L (3.5-5.1); Sodium 137 mmol/L (137-145); Total Bilirubin 0.7 mg/dL (0.2-1.3); Total Protein 5.8 g/dL (6.3-8.2)
[2019-10-27] MEDS: PANTOPRAZOLE 40 MG/10 ML VIAL IV SCH (07:22)
[2019-10-27 08:32] VITALS: BP 125/80; RESP 14; TEMP 98
[2019-10-27 08:42] VITALS: PULSE 51
--- NOTE | 2019-10-27 09:26 | P.DS ---
<KrissSeanLily A - Last Filed: 10/27/19 09:23> Providers Expected date of discharge: 10/27/19 Hospital Course: 34-year-old female who underwent laparoscopic sleeve gastrectomy with Dr. Bledsoe on 10/17/2019. Patient had an obstruction postoperatively and was placed on IV Decadron. She also developed bradycardia during hospitalization and was followed by cardiology, though she remained asymptomatic. She was discharged home on 10/21/2019 in stable condition. Patient states she has been feeling weak over the past few days. She reports nausea and vomiting that started Thursday. She continues to complain of the feeling that liquids are getting "stuck". Patient underwent esophagram which did not reveal evidence of obstruction. She received IV fluid hydration during hospitalization. She states she has feeling better than when she came into the hospital. She has been tolerating an adequate amount of liquids without nausea or vomiting. She is stable for discharge home. Please see EMR for further hospital course details. Discharge Diagnosis: 1. Nausea and vomiting 2. Recent laparoscopic sleeve gastrectomy, 10/17/2019 with postoperative obstruction Nurse practitioner note has been reviewed by physician. Signing provider agrees with the documented findings, assessment, and plan of care. Patient Condition at Discharge: Stable Plan - Discharge Summary Discharge Rx Participant: No New Discharge Prescriptions: Continue Bisacodyl [Dulcolax] 5 mg PO DAILY PRN #10 tablet.dr LOMBARDO Reason: Constipation Simethicone 40 mg/0.6 ml Drops [Mylicon Drops] 40 mg PO PCHS PRN #30 ml PRN Reason: Gas Omeprazole [PriLOSEC] 40 mg PO DAILY #30 capsule. Ondansetron Odt [Zofran ODT] 4 mg PO Q8HR PRN #9 tab PRN Reason: Nausea oxyCODONE HCL/ACETAMINOPHEN [oxyCODONE HCL/ACETAMINOPHEN 5-325] 1 tab PO Q6H 3 Days #12 tab Discharge Medication List Bisacodyl [Dulcolax] 5 mg PO DAILY PRN #10 tablet. 10/21/19 [Rx] Omeprazole [PriLOSEC] 40 mg PO DAILY #30 capsule. 10/21/19 [Rx] Ondansetron Odt [Zofran ODT] 4 mg PO Q8HR PRN #9 tab 10/21/19 [Rx] Simethicone 40 mg/0.6 ml Drops [Mylicon Drops] 40 mg PO PCHS PRN #30 ml 10/21/19 [Rx] oxyCODONE HCL/ACETAMINOPHEN [oxyCODONE HCL/ACETAMINOPHEN 5-325] 1 tab PO Q6H 3 Days #12 tab 10/21/19 [Rx] Follow up [facility]ment(s[facility]Ref[place] [facility] [place] [place] [facility] [place] [facility] ([facility] center will call you tomorrow 10/28/19 with a follow up appointment. ) Ale Gibbs MD [Primary Care Provider] - 1-2 days Discharge Disposition: HOME SELF-CARE <Eyal Bledsoe - Last Filed: 10/27/19 12:18> Providers Date of admission: 10/24/19 15:49 Attending physician: Eyal Bledsoe Consults: 10/24/19 15:50 Consult Physician Urgent Consulting Provider: Kenji Sams Consult Reason/Comments: medical care, bradycardia Do you want consulting provider notified?: Yes Primary care physician: Ale Gibbs Hospital Course: As above. Patient doing well. Discharge prior to my arrival.
== END 2019-10-27 11:26 | disposition home or self-care (01) ==
LOC: EC 12:43 → 1SOBS 15:49
PROVIDERS: ADMIT Surgery; ATTEND Surgery
DX: E86.0 Dehydration (principal); R10.9 Unspecified abdominal pain; R11.2 Nausea with vomiting, unspecified; E87.1 Hypo-osmolality and hyponatremia; R00.1 Bradycardia, unspecified; R13.10 Dysphagia, unspecified; D50.9 Iron deficiency anemia, unspecified; E66.9 Obesity, unspecified; Z68.41 Body mass index [BMI] 40.0-44.9, adult; R16.1 Splenomegaly, not elsewhere classified; F17.210 Nicotine dependence, cigarettes, uncomplicated; K21.9 Gastro-esophageal reflux disease without esophagitis; G89.18 Other acute postprocedural pain; Z86.32 Personal history of gestational diabetes; Z98.84 Bariatric surgery status; Z83.79 Family history of other diseases of the digestive system; Z79.891 Long term (current) use of opiate analgesic; Z79.899 Other long term (current) drug therapy; Z88.0 Allergy status to penicillin
CPT/HCPCS: 96375 ×2; 96376 ×4; 96361; 96374; 99285; 36415; 93005; 80053 ×4; 84443; 82150; 83690; 85025 ×4; 85610; 85730; 81001; 74240; 74177; G0378 ×4; U0003; J2270 ×3; J2405; C9113 ×3; Q9967 ×2

== ENCOUNTER → 2019-11-01 | Outpatient (CLI) | payer OTHER ==
[2019-11-01 11:21] VITALS: BP 101/76; PULSE 64; TEMP 98.1; BMI 39.6
--- NOTE | 2019-11-01 12:10 | P.BASOAP ---
Subjective Progress Note Date: 11/01/19 Principal diagnosis: Morbid obesity Patient here today after recent sleeve gastrectomy. Doing well after recent readmission for dehydration. Denies pain. No reflux. Taking her antiacids daily. She is getting 16 ounces of liquids daily. 30 g of protein. Says her protein shakes are causing diarrhea. No vomiting. 13 pound weight loss since surgery. Objective - Vital Signs Vital signs: Vital Signs Temp 98.1 F 11/01/19 11:18 Pulse 64 11/01/19 11:18 Resp BP 101/76 11/01/19 11:18 Pulse Ox Intake & Output 10/31/19 11/01/19 11/01/19 18:59 06:59 18:59 Weight 103.873 kg - Exam abdomen: Soft, nondistended, incisions clean and dry, minimal tenderness Assessment/Plan (1) Morbid obesity Narrative/Plan: Patient doing better at this time. Continue encouraging liquid intake and protein supplementation. Continue light lifting. Continue antiacids. Return 1-2 weeks. Plan: Date: 11/01/19 Initial Weight: 110.722 kg Initial BMI: 42.2 Current Weight: 103.873 kg Current BMI: 39.6 Type of Surgery: Total Volume in Band: Previous Volume: Volume Removed: Volume Added: Band Size:
== END | disposition home or self-care (01) ==
LOC: BARWHC3 10:44
PROVIDERS: ATTEND Surgery
DX: E66.01 Morbid (severe) obesity due to excess calories (principal); Z68.39 Body mass index [BMI] 39.0-39.9, adult
CPT/HCPCS: 99211

== ENCOUNTER → 2019-11-08 | Outpatient (CLI) | payer OTHER ==
[2019-11-08 13:33] VITALS: BP 117/82; PULSE 65; RESP 16; TEMP 98.1; BMI 39.6
--- NOTE | 2019-11-08 15:51 | P.BASOAP ---
Subjective Progress Note Date: 11/08/19 Principal diagnosis: Morbid obesity Patient returns for recheck. Some constipation recently. Yesterday had decreased fluids but has been doing better with her fluid intake. Weight is stable at 229. Mild soreness at her belly button incision site. She is due for one month labs. Objective - Vital Signs Vital signs: Vital Signs Temp 98.1 F 11/08/19 13:29 Pulse 65 11/08/19 13:29 Resp 16 11/08/19 13:29 BP 117/82 11/08/19 13:29 Pulse Ox Intake & Output 11/07/19 11/08/19 11/08/19 18:59 06:59 18:59 Weight 103.873 kg - Exam Abdomen: Soft, nontender, nondistended, incisions clean and dry Assessment/Plan (1) Morbid obesity Narrative/Plan: Patient overall doing better. Improved liquid intake. Continue stool softeners. Will return to work next Thursday. Gradually increase diet. Follow- up 11/28. Plan: Date: 11/08/19 Initial Weight: 110.722 kg Initial BMI: 42.2 Current Weight: 103.873 kg Current BMI: 39.6 Type of Surgery: Total Volume in Band: Previous Volume: Volume Removed: Volume Added: Band Size:
== END | disposition home or self-care (01) ==
LOC: BARWHC3 13:02
PROVIDERS: ATTEND Surgery
DX: E66.01 Morbid (severe) obesity due to excess calories (principal); Z68.39 Body mass index [BMI] 39.0-39.9, adult; Z79.899 Other long term (current) drug therapy
CPT/HCPCS: 97803; G0463; 99211

== ENCOUNTER → 2019-11-17 | Outpatient (CLI) | payer OTHER ==
[2019-11-17 12:27] LABS: Anisocytosis Slight; HCT 34.5 % (34.0-46.0); HGB 10.7 gm/dL (11.4-16.0); Hypochromasia Moderate; MCH 24.3 pg (25.0-35.0); MCHC 30.9 g/dL (31.0-37.0); MCV 78.7 fL (80.0-100.0); Mean Platelet Volume 7.6; Microcytosis Slight; Platelet Count 204 k/uL (150-450); RBC 4.38 m/uL (3.80-5.40)
[2019-11-17 19:21] LABS: African American GFR (CKD) 155.3 (60.0-200.0); Albumin 4.1 g/dL (3.80-4.90); Albumin/Globulin Ratio 2.16 (1.60-3.17); Anion Gap 9.4 mmol/L (4.00-12.00); Calcium 9.1 mg/dL (8.7-10.3); Carbon Dioxide 24.6 mmol/L (21.6-31.8); Folate, Serum 13.3 ng/mL; Globulin 1.9 g/dL (1.6-3.3); Potassium 4.1 mmol/L (3.5-5.5); Total Bilirubin 0.4 mg/dL (0.2-1.2)
== END | disposition home or self-care (01) ==
LOC: LABWHC1 10:12
PROVIDERS: ATTEND Surgery
DX: K90.89 Other intestinal malabsorption (principal); K55.9 Vascular disorder of intestine, unspecified
CPT/HCPCS: 36415; 80053; 82306; 82607; 82746; 83540; 84425; 85027

== ENCOUNTER → 2019-12-06 | Outpatient (CLI) | payer OTHER ==
[2019-12-06 13:39] VITALS: BP 138/72; PULSE 53; RESP 16; TEMP 97.8; BMI 38.0
--- NOTE | 2019-12-06 20:16 | PN ---
PROGRESS NOTE DATE OF SERVICE: 12/06/2019 CHIEF COMPLAINT: Postoperative. INTERVAL HISTORY: Patient returns for re-evaluation. She was last seen on 11/07. The patient had her sleeve on 10/16. Patient is complaining of mild reflux. Needs a refill on her PPI. Some constipation at times. Taking intermittent Dulcolax. Recent labs showed a significantly low iron and vitamin D. She has received iron infusions. She was seen by Hematology preoperatively. Hemoglobin 10.7. Denies bleeding. The patient has lost 9 pounds since her last visit. Good protein and liquid intake. PHYSICAL EXAMINATION: Abdomen is soft, nondistended, nontender. Incision is clean and dry. PLAN: Will recheck labs next visit. Continue vitamin D supplementation. Gradually increase exercise amounts. Will add MiraLAX for constipation. Follow up in 4 to 6 weeks. MMODL / IJN: [id number] /
== END | disposition home or self-care (01) ==
LOC: BARWHC3 13:24
PROVIDERS: ATTEND Surgery
DX: Z48.815 Encounter for surgical aftercare following surgery on the digestive system (principal); K59.00 Constipation, unspecified; Z98.84 Bariatric surgery status
CPT/HCPCS: 99211

== ENCOUNTER → 2020-01-17 | Outpatient (CLI) | payer OTHER ==
[2020-01-17 13:57] VITALS: PULSE 55; RESP 16; TEMP 97.3; BMI 36.3
--- NOTE | 2020-01-17 14:18 | P.BASOAP ---
Subjective Progress Note Date: 01/17/20 Principal diagnosis: Morbid obesity Patient doing well since last visit. Constipation is improved. Not taking her MiraLAX regularly. No heartburn. No longer taking omeprazole. She has lost 10 pounds since her last visit. Patient does have some issues with increased salivation after meals with mild nausea. Objective - Vital Signs Vital signs: Vital Signs Temp 97.3 F L 01/17/20 13:52 Pulse 55 L 01/17/20 13:52 Resp 16 01/17/20 13:52 BP Pulse Ox Intake & Output 01/16/20 01/17/20 01/17/20 18:59 06:59 18:59 Weight 95.254 kg - Exam Abdomen: Soft, nontender, nondistended Assessment/Plan (1) Morbid obesity Narrative/Plan: Overall patient doing well. Continue to monitor nausea and cell elevation. Check 3 months labs at this time. Follow-up 6 weeks. Plan: Date: 01/17/20 Initial Weight: 110.722 kg Initial BMI: 42.2 Current Weight: 95.254 kg Current BMI: 36.3 Type of Surgery: Total Volume in Band: Previous Volume: Volume Removed: Volume Added: Band Size:
== END | disposition home or self-care (01) ==
LOC: BARWHC3 13:31
PROVIDERS: ATTEND Surgery
DX: E66.01 Morbid (severe) obesity due to excess calories (principal); Z68.36 Body mass index [BMI] 36.0-36.9, adult; Z71.3 Dietary counseling and surveillance
CPT/HCPCS: 97803; G0463; 99211

== ENCOUNTER → 2020-01-17 | Outpatient (CLI) | payer OTHER ==
[2020-01-17 15:31] LABS: Anisocytosis Slight; HCT 36.1 % (34.0-46.0); HGB 11.2 gm/dL (11.4-16.0); Hypochromasia Slight; MCH 25.8 pg (25.0-35.0); MCV 83.3 fL (80.0-100.0); Mean Platelet Volume 7.7; Platelet Count 174 k/uL (150-450); RBC 4.33 m/uL (3.80-5.40); RDW 16.6 % (11.5-15.5); WBC 5.4 k/uL (3.8-10.6)
[2020-01-18 01:01] LABS: African American GFR (CKD) 109.9 (60.0-200.0); Albumin 4.2 g/dL (3.80-4.90); Albumin/Globulin Ratio 2.1 (1.60-3.17); BUN/Creat Ratio 26.25 Ratio (12.00-20.00); Calcium 9.1 mg/dL (8.7-10.3); Non-African American GFR(CKD) 94.8 (60.0-200.0); Potassium 4.2 mmol/L (3.5-5.5); Total Bilirubin 0.4 mg/dL (0.3-1.2); Total Protein 6.2 g/dL (6.2-8.2)
== END | disposition home or self-care (01) ==
LOC: LABWHC1 14:15
PROVIDERS: ATTEND Surgery
DX: D50.8 Other iron deficiency anemias (principal); K90.89 Other intestinal malabsorption; E55.9 Vitamin D deficiency, unspecified
CPT/HCPCS: 36415; 80053; 82306; 82607; 82746; 83540; 84425; 85027

== ENCOUNTER 2020-02-23 23:14 | Emergency (ER) | payer OTHER ==
[2020-02-23 23:28] VITALS: RESP 18
[2020-02-23] MEDS ORDERED: SODIUM CHLORIDE 0.9% 1,000 ML IV STA (23:28)
[2020-02-23] MEDS ORDERED: IOPAMIDOL CONTRAST (ORAL USE) VIAL PO PRN (23:57)
[2020-02-24 00:01] LABS: Basophils % (A) 1 %; Eosinophils # (A) 0.1 k/uL (0-0.7); Eosinophils % (A) 1 %; HCT 34.6 % (34.0-46.0); HGB 11.3 gm/dL (11.4-16.0); Hypochromasia Slight; Lymphocytes # (A) 1.7 k/uL (1.0-4.8); Lymphocytes % (A) 27 %; MCH 27.3 pg (25.0-35.0); MCHC 32.6 g/dL (31.0-37.0); Mean Platelet Volume 7.3; Monocytes # (A) 0.3 k/uL (0-1.0); Monocytes % (A) 5 %; Neutrophils # (A) 4.3 k/uL (1.3-7.7); Neutrophils % (A) 66 %; Platelet Count 197 k/uL (150-450); RBC 4.12 m/uL (3.80-5.40); RDW 14.7 % (11.5-15.5); WBC 6.5 k/uL (3.8-10.6)
[2020-02-24 00:21] LABS: ALT 10 U/L (4-34); AST 17 U/L (14-36); African American GFR (CKD) >90 (>60 ml/min/1.73 sqM); Albumin 3.8 g/dL (3.5-5.0); Alkaline Phosphatase 79 U/L (38-126); Amylase 44 U/L (30-110); Anion Gap 7 mmol/L; Blood Urea Nitrogen 20 mg/dL (7-17); Calcium 8.9 mg/dL (8.4-10.2); Carbon Dioxide 22 mmol/L (22-30); Chloride 110 mmol/L (98-107); Glucose 97 mg/dL (74-99); Non-African American GFR(CKD) >90 (>60 ml/min/1.73 sqM); Potassium 3.9 mmol/L (3.5-5.1); Sodium 139 mmol/L (137-145); Total Bilirubin 0.3 mg/dL (0.2-1.3); Total Protein 6.3 g/dL (6.3-8.2)
[2020-02-24 00:23] LABS: Appearance,Urine Clear (Clear); Bacteria,Urine Moderate /hpf; Bilirubin,Urine Negative (Negative); Blood,Urine Negative (Negative); Color,Urine Yellow; Glucose,Urine (UA) Negative (Negative); Ketones,Urine Negative (Negative); Leukocyte Esterase,Urine Moderate (Negative); Mucus,Urine Rare /hpf; Nitrite,Urine Negative (Negative); PH, Urine 7.5 (5.0-8.0); Protein,Urine Negative (Negative); RBC,Urine 1 /hpf (0-5); Specific Gravity,Urine 1.019 (1.001-1.035); Squamous Epithelial Cell,Urine 4 /hpf (0-4); WBC,Urine 5 /hpf (0-5)
--- NOTE | 2020-02-24 00:51 | CT ---
EXAMINATION TYPE: CT abdomen pelvis w con DATE OF EXAM: 02/24/2020 COMPARISON: 10/24/2019 HISTORY: abd pain , gastric sleeve [id number] ago CT DLP: 1295.3 mGycm Automated exposure control for dose reduction was used. There is some oral contrast. CONTRAST: Performed with IV Contrast, patient injected with 100 mL of Isovue 300. Lung bases are clear. There is no pleural effusion. Heart size is normal. There is small hiatal herni a. Liver spleen stomach pancreas gallbladder appear normal. Bile ducts are not dilated. There is small h iatal hernia. There is apparent previous gastric surgery. There is no adrenal mass. Kidneys show satisfactory contrast opacification. There is no hydronephrosi s. Ureters are not dilated. The bladder is almost empty. There is no inguinal hernia. There is tiny a mount of free fluid in the pelvis that is probably physiologic. Uterus is anteverted with some enlarg ement of the endometrial cavity. There is no adnexal mass. Appendix is medial and appears normal. The re is no mesenteric edema. There is no ascites or free air. There is no bowel obstruction. Lumbar vertebra have normal spacing and alignment. Posterior elements are intact. The bony pelvis is intact. Hip joints appear normal. There is no evidence of hip dysplasia. IMPRESSION: Mild enlargement of the endometrium. Tiny amount of free fluid in the pelvis is probably physiologic. Normal appendix.
--- NOTE | 2020-02-24 00:55 | ED ---
Abdominal Pain HPI - General Chief Complaint: Abdominal Pain Stated Complaint: Abdominal pain Time Seen by Provider: 02/23/20 23:20 Source: patient, EMS Mode of arrival: EMS - History of Present Illness Initial Comments: Parag is a pleasant 35-year-old female who is approximately one month status post gastric sleeve surgery. She's been doing well postoperatively. She states that recently she's been having some postprandial discomfort. Tonight she ate approximately one hour later had discomfort across her entire upper abdomen from the right to left. No vomiting some mild nausea. No fevers or chills. Last bowel movement was 3 days ago which is typical for her. She states that she's been following closely with her surgeon she's been doing well she's been following her dietary modifications and taking all of her prescribed medications and supplements. - Related Data Home Medications Medication Instructions Recorded Confirmed Calcium Carbonate [Calcium] 600 mg PO DAILY 11/29/19 01/18/20 Ergocalciferol [Vitamin D2 50,000 unit PO Q7D 11/29/19 01/18/20 (DRNOHEMI)] Multivitamins, Thera [Multivitamin 1 tab PO DAILY 11/29/19 01/18/20 (formulary)] Previous Rx's Medication Instructions Recorded Omeprazole [PriLOSEC] 40 mg PO DAILY #30 capsule. 10/21/19 Allergies Allergy/AdvReac Type Severity Reaction Status Date / Time Penicillins Allergy Unknown Verified 02/23/20 23:28 Childhood Review of Systems ROS Statement: Those systems with pertinent positive or pertinent negative responses have been documented in the HPI. ROS Other: All systems not noted in ROS Statement are negative. Past Medical History Past Medical History: No Reported History Additional Past Medical History / Comment(s): Gestational diabetes 2017. History of Any Multi-Drug Resistant Organisms: None Reported Past Surgical History: Bariatric Surgery, Section Additional Past Surgical History / Comment(s): Cesearean section x2 (2012, 2017), gastric sleeve 10/17/19 Past Anesthesia/Blood Transfusion Reactions: No Reported Reaction Additional Past Anesthesia/Blood Transfusion Reaction / Comment(s): No tra nsfusion to date Past Psychological History: No Psychological Hx Reported Smoking Status: Former smoker Past Alcohol Use History: None Reported Past Drug Use History: None Reported - Past Family History Father Additional Family Medical History / Comment(s): crohns General Exam - General Exam Comments Initial Comments: Physical Exam GENERAL: Patient is well-developed and well-nourished. Patient is nontoxic and well-hydrated and is in no distress. HENT: Normocephalic, Atraumatic. EYES: PERRL, EOMI PULMONARY: Unlabored respirations. CARDIOVASCULAR: RRR Warm and well perfused extremities ABDOMEN: Non-distended Nontender No masses, no hepatosplenomegally SKIN: No rashes or bruising : Deferred NEUROLOGIC: Alert and oriented Normal speech Normal gait MUSCULOSKELETAL: Moving all extremities with no apparent injury PSYCHIATRIC: No SI/HI Course Vital Signs 02/23/20 23:18 Temperature 98.6 F Pulse Rate 56 L Respiratory 18 Rate Blood Pressure 116/65 O2 Sat by Pulse 100 Oximetry Medical Decision Making - Medical Decision Making The patient was seen and evaluated history is obtained from the patient. Patient with a history of gastric sleeve procedure presenting with abdominal pain. Physical exam is relatively unremarkable patient reports her pain is improved significantly prior to arrival she reports only 2 out of 10 at this point Labs and imaging were obtained, I did discuss the risks and benefits of CT imaging however given his postoperative she feels safer having a computed tomography scan Labs are relatively unremarkable, chronic anemia no other significant abnormalities normal lipase normal liver functions Computed tomography scan with no acute findings in the abdomen.. The patient has rested comfortably throughout her stay in the ER and is comfortable with plan for discharge home at this time, she will contact her surgeon in the morning for follow-up Return parameters were discussed all questions pertaining care were answered to the best of my ability and the patient was discharged home in stable condition - Lab Data Result diagrams: 02/23/20 23:34 02/23/20 23:34 Lab Results 02/23/20 02/23/20 02/23/20 Range/Units 23:34 23:34 23:34 WBC 6.5 (3.8-10.6) k/uL RBC 4.12 (3.80-5.40) m/uL Hgb 11.3 L (11.4-16.0) gm/dL Hct 34.6 (34.0-46.0) % MCV 84.0 (80.0-100.0) fL MCH 27.3 (25.0-35.0) pg MCHC 32.6 (31.0-37.0) g/dL RDW 14.7 (11.5-15.5) % Plt Count 197 (150-450) k/uL Neutrophils % 66 % Lymphocytes % 27 % Monocytes % 5 % Eosinophils % 1 % Basophils % 1 % Neutrophils # 4.3 (1.3-7.7) k/uL Lymphocytes # 1.7 (1.0-4.8) k/uL Monocytes # 0.3 (0-1.0) k/uL Eosinophils # 0.1 (0-0.7) k/uL Basophils # 0.0 (0-0.2) k/uL Hypochromasia Slight Sodium 139 (137-145) mmol/L Potassium 3.9 (3.5-5.1) mmol/L Chloride 110 H (98-107) mmol/L Carbon Dioxide 22 (22-30) mmol/L Anion Gap 7 mmol/L BUN 20 H (7-17) mg/dL Creatinine 0.63 (0.52-1.04) mg/dL Est GFR (CKD-EPI)AfAm >90 (>60 ml/min/1.73 sqM) Est GFR (CKD-EPI)NonAf >90 (>60 ml/min/1.73 sqM) Glucose 97 (74-99) mg/dL Plasma Lactic Acid Keenan (0.7-2.0) mmol/L Calcium 8.9 (8.4-10.2) mg/dL Total Bilirubin 0.3 (0.2-1.3) mg/dL AST 17 (14-36) U/L ALT 10 (4-34) U/L Alkaline Phosphatase 79 (38-126) U/L Total Protein 6.3 (6.3-8.2) g/dL Albumin 3.8 (3.5-5.0) g/dL Amylase 44 (30-110) U/L Lipase 183 (23-300) U/L Urine Color Yellow Urine Appearance Clear (Clear) Urine pH 7.5 (5.0-8.0) Ur Specific [place] 1.019 (1.001-1.035) Urine Protein Negative (Negative) Urine Glucose (UA) Negative (Negative) Urine Ketones Negative (Negative) Urine Blood Negative (Negative) Urine Nitrite Negative (Negative) Urine Bilirubin Negative (Negative) Urine Urobilinogen 2.0 (<2.0) mg/dL Ur Leukocyte Esterase Moderate H (Negative) Urine RBC 1 (0-5) /hpf Urine WBC 5 (0-5) /hpf Ur Squamous Epith Cells 4 (0-4) /hpf Urine Bacteria Moderate H (None) /hpf Urine Mucus Rare H (None) /hpf Urine HCG, Qual (Not Detectd) 02/23/20 02/23/20 Range/Units 23:34 23:34 WBC (3.8-10.6) k/uL RBC (3.80-5.40) m/uL Hgb (11.4-16.0) gm/dL Hct (34.0-46.0) % MCV (80.0-100.0) fL MCH (25.0-35.0) pg MCHC (31.0-37.0) g/dL RDW (11.5-15.5) % Plt Count (150-450) k/uL Neutrophils % % Lymphocytes % % Monocytes % % Eosinophils % % Basophils % % Neutrophils # (1.3-7.7) k/uL Lymphocytes # (1.0-4.8) k/uL Monocytes # (0-1.0) k/uL Eosinophils # (0-0.7) k/uL Basophils # (0-0.2) k/uL Hypochromasia Sodium (137-145) mmol/L Potassium (3.5-5.1) mmol/L Chloride (98-107) mmol/L Carbon Dioxide (22-30) mmol/L Anion Gap mmol/L BUN (7-17) mg/dL Creatinine (0.52-1.04) mg/dL Est GFR (CKD-EPI)AfAm (>60 ml/min/1.73 sqM) Est GFR (CKD-EPI)NonAf (>60 ml/min/1.73 sqM) Glucose (74-99) mg/dL Plasma Lactic Acid Keenan 0.9 (0.7-2.0) mmol/L Calcium (8.4-10.2) mg/dL Total Bilirubin (0.2-1.3) mg/dL AST (14-36) U/L ALT (4-34) U/L Alkaline Phosphatase (38-126) U/L Total Protein (6.3-8.2) g/dL Albumin (3.5-5.0) g/dL Amylase (30-110) U/L Lipase (23-300) U/L Urine Color Urine Appearance (Clear) Urine pH (5.0-8.0) Ur Specific [place] (1.001-1.035) Urine Protein (Negative) Urine Glucose (UA) (Negative) Urine Ketones (Negative) Urine Blood (Negative) Urine Nitrite (Negative) Urine Bilirubin (Negative) Urine Urobilinogen (<2.0) mg/dL Ur Leukocyte Esterase (Negative) Urine RBC (0-5) /hpf Urine WBC (0-5) /hpf Ur Squamous Epith Cells (0-4) /hpf Urine Bacteria (None) /hpf Urine Mucus (None) /hpf Urine HCG, Qual Not Detected (Not Detectd) Disposition Clinical Impression: Abdominal pain Disposition: HOME SELF-CARE Condition: Stable Additional Instructions: As we discussed your labs and computed tomography scan had no emergent findings, continue to follow your postoperative diet, Contact Dr. Coughlin in the morning for follow-up Return to the ER for any development of new or concerning symptoms or any worsening or recurrent pain Is patient prescribed a controlled substance at d/c from ED?: No Referrals: Ale Gibbs MD [Primary Care Provider] - 1-2 days
[2020-02-24 01:25] VITALS: BP 109/62; PULSE 51; TEMP 98
== END 2020-02-24 01:25 | disposition home or self-care (01) ==
LOC: EC 23:14
DX: R10.12 Left upper quadrant pain (principal); R10.11 Right upper quadrant pain; D64.9 Anemia, unspecified; Z79.899 Other long term (current) drug therapy; Z88.0 Allergy status to penicillin; Z98.84 Bariatric surgery status; Z87.891 Personal history of nicotine dependence
CPT/HCPCS: 36415; 74177; 80053; 81001; 81025; 82150; 83605; 83690; 85025; 96360; 99284

== ENCOUNTER → 2020-02-28 | Outpatient (CLI) | payer OTHER ==
[2020-02-28 13:41] VITALS: BP 119/77; PULSE 53; TEMP 97.8; BMI 34.0
--- NOTE | 2020-02-28 16:23 | P.BASOAP ---
Subjective Progress Note Date: 02/28/20 Principal diagnosis: Morbid obesity Patient returns for reevaluation. Underwent sleeve gastrectomy in early October. Last seen by me in early January. Went to the ER last week because of epigastric burning pain. Pain was at times in the right upper quadrant as well. No history of known gallstones. It is now gone. Seemed to improve after going back on a liquidy diet. She still having some chronic constipation issues. She does not believe that constipation is contributing to her pain. She had a CAT scan while in the ER that did not show any explanation for her pain. Patient states at times it feels like the food she is eating is sitting in her lower chest region. She has lost 13 pounds since her last visit. Objective - Vital Signs Vital signs: Vital Signs Temp 97.8 F 02/28/20 13:37 Pulse 53 L 02/28/20 13:37 Resp BP 119/77 02/28/20 13:37 Pulse Ox Intake & Output 02/27/20 02/28/20 02/28/20 18:59 06:59 18:59 Weight 89.358 kg - Exam Abdomen: Soft, nontender, nondistended Assessment/Plan (1) Abdominal pain Narrative/Plan: Patient doing fairly well with the exception of recent ER visit for upper abdominal pain. Continue antiacid therapy. Increase MiraLAX volume. Check upper GI/esophagram. If that study is normal and symptoms persist we'll order ultrasound to evaluate for cholelithiasis. Check three-month labs today. Return visit in 1-2 months. Plan: Date: 02/28/20 Initial Weight: 110.722 kg Initial BMI: 42.2 Current Weight: 89.358 kg Current BMI: 34.0 Type of Surgery: Total Volume in Band: Previous Volume: Volume Removed: Volume Added: Band Size:
== END | disposition home or self-care (01) ==
LOC: BARWHC3 13:04
PROVIDERS: ATTEND Surgery
DX: Z48.815 Encounter for surgical aftercare following surgery on the digestive system (principal); R10.10 Upper abdominal pain, unspecified; K80.20 Calculus of gallbladder without cholecystitis without obstruction; E66.01 Morbid (severe) obesity due to excess calories; Z68.41 Body mass index [BMI] 40.0-44.9, adult; Z98.84 Bariatric surgery status
CPT/HCPCS: 99211

== ENCOUNTER → 2020-03-02 | Outpatient (CLI) | payer OTHER ==
[2020-03-02 18:05] LABS: Folate, Serum 10.6 ng/mL
== END | disposition home or self-care (01) ==
LOC: LABWHC1 08:50
PROVIDERS: ATTEND Surgery
DX: E66.01 Morbid (severe) obesity due to excess calories (principal); E55.9 Vitamin D deficiency, unspecified; K90.89 Other intestinal malabsorption
CPT/HCPCS: 36415; 82306; 82607; 82746; 83540; 84425

== ENCOUNTER → 2020-03-19 | Outpatient (CLI) | payer OTHER ==
--- NOTE | 2020-03-19 09:42 | FL ---
EXAMINATION TYPE: FL UGI air w esophagus DATE OF EXAM: 03/19/2020 COMPARISON: Prior fluoroscopic upper GI studies October 18, 2019 and October 25, 2019. CT abdomen and pelvis February 24, 2020 HISTORY: History of gastric sleeve surgery October 17, 2019 with persistent dysphasia, new vomiting for o ne month. TECHNIQUE: A single contrast UGI study is performed utilizing thin liquid barium. A total 20 seconds of fluoroscopic time. 45 spot images saved to PACS. FINDINGS: The patient swallowed contrast without difficulty or delay. Esophageal peristalsis and motility are within normal limits. There is good flow of contrast along the diaphragmatic hiatus into proximal st omach and subsequent flow into gastric sleeve at proximal anastomosis. There is mild delay in flow fr om distal sleeve into pylorus and duodenal sweep. Patient remains asymptomatic. There is no evidence of contrast extravasation to suggest leak. IMPRESSION: No significant obstruction on current study.
== END | disposition home or self-care (01) ==
LOC: RADUSWWP 08:34
PROVIDERS: ATTEND Surgery
DX: R13.10 Dysphagia, unspecified (principal)
CPT/HCPCS: 74246

== ENCOUNTER → 2020-04-10 | Outpatient (CLI) | payer OTHER ==
--- NOTE | 2020-04-10 13:48 | P.BASOAP ---
Subjective Progress Note Date: 04/10/20 Principal diagnosis: Morbid obesity Patient returns today for recheck. Last seen in February. At that time the patient was having intermittent episodes of epigastric pain, reflux, dysphagia, and vomiting. Her symptoms have improved. She underwent an esophagram 03/19 which showed no evidence of obstruction or leak. She is only had 2 episodes of emesis and had some epigastric discomfort at that time. No other episodes of pain. We had been considering gallbladder workup previously. Her labs from last visit were checked. Her iron was low as it had been previously. She increased her iron to 2 tablets daily. Her constipation has improved. Still taking MiraLAX daily. No heartburn while taking her proton pump inhibitor. No exercising. Objective - Exam Abdomen: Soft, nontender, nondistended Assessment/Plan (1) Morbid obesity Narrative/Plan: Patient doing better at this time. Continue dietary and exercise regimen. We'll check 6 month labs next visit. Continue to monitor for episodes of dysphagia and vomiting. Plan: Date: Initial Weight: 110.722 kg Initial BMI: Current Weight: Current BMI: Type of Surgery: Total Volume in Band: Previous Volume: Volume Removed: Volume Added: Band Size:
[2020-04-10 14:07] VITALS: BP 142/60; PULSE 55; TEMP 98.3; BMI 32.5
== END | disposition home or self-care (01) ==
LOC: BARWHC3 13:04
PROVIDERS: ATTEND Surgery
DX: E66.01 Morbid (severe) obesity due to excess calories (principal); Z68.32 Body mass index [BMI] 32.0-32.9, adult
CPT/HCPCS: 97803; G0463; 99211

== ENCOUNTER → 2020-06-19 | Outpatient (CLI) | payer OTHER ==
[2020-06-19 14:11] VITALS: BP 106/69; PULSE 52; RESP 16; TEMP 98.1; BMI 30.7
--- NOTE | 2020-06-19 14:37 | P.BASOAP ---
Subjective Progress Note Date: 06/19/20 Principal diagnosis: Morbid obesity Patient last seen in March. Since that time she has done well. She has lost 10 more pounds. Recently just joined a gym in [place]. Taking antiacids intermittently every several days. Still taking MiraLAX daily. She stopped taking her bariatric fusion multivitamins because it was causing bad nausea. Started on Flintstones vitamins with iron. No pain. No vomiting. She is due for 6 month labs. Objective - Vital Signs Vital signs: Vital Signs Temp 98.1 F 06/19/20 14:08 Pulse 52 L 06/19/20 14:08 Resp 16 06/19/20 14:08 BP 106/69 06/19/20 14:08 Pulse Ox Intake & Output 06/18/20 06/19/20 06/19/20 18:59 06:59 18:59 Weight 80.739 kg - Exam Abdomen: Soft, nontender, nondistended Assessment/Plan (1) Morbid obesity Narrative/Plan: Patient doing well at this time. Continue daily MiraLAX. Increase exercise after joining the gym recently. Recheck 6 labs. Follow-up 6-8 weeks Plan: Date: 06/19/20 Initial Weight: 110.722 kg Initial BMI: 42.2 Current Weight: 80.739 kg Current BMI: 30.7 Type of Surgery: Total Volume in Band: Previous Volume: Volume Removed: Volume Added: Band Size:
[2020-06-19 15:42] LABS: HCT 31.5 % (34.0-46.0); HGB 10.1 gm/dL (11.4-16.0); Hypochromasia Marked; MCH 24.9 pg (25.0-35.0); MCHC 32.1 g/dL (31.0-37.0); MCV 77.7 fL (80.0-100.0); Mean Platelet Volume 7.1; Platelet Count 191 k/uL (150-450); RBC 4.05 m/uL (3.80-5.40); RDW 14.4 % (11.5-15.5); WBC 3.7 k/uL (3.8-10.6)
[2020-06-20 02:03] LABS: Albumin 4.5 g/dL (3.80-4.90); Albumin/Globulin Ratio 2.65 (1.60-3.17); Anion Gap 8.1 mmol/L (4.00-12.00); BUN/Creat Ratio 28.33 Ratio (12.00-20.00); Carbon Dioxide 24.9 mmol/L (21.6-31.8); Folate, Serum 12.5 ng/mL; Globulin 1.7 g/dL (1.6-3.3); Non-African American GFR(CKD) 116.4 (60.0-200.0); Potassium 4.3 mmol/L (3.5-5.5); Total Bilirubin 0.4 mg/dL (0.2-1.2); Total Protein 6.2 g/dL (6.2-8.2)
== END | disposition home or self-care (01) ==
LOC: BARWHC3 13:55
PROVIDERS: ATTEND Surgery
DX: Z48.815 Encounter for surgical aftercare following surgery on the digestive system (principal); E66.01 Morbid (severe) obesity due to excess calories; Z68.41 Body mass index [BMI] 40.0-44.9, adult
CPT/HCPCS: 84425; 80053; 82607; 82746; 83540; 85027; 82306; G0463; 99211

== ENCOUNTER 2020-07-17 16:40 | Emergency (ER) | payer OTHER ==
[2020-07-17 16:51] VITALS: RESP 18; TEMP 97.9
[2020-07-17] MEDS ORDERED: ONDANSETRON 4 MG/2 ML VIAL IVP STA (17:03)
[2020-07-17] MEDS ORDERED: MORPHINE SULFATE 4 MG/ML SYRINGE IV STA (17:03)
[2020-07-17] MEDS ORDERED: SODIUM CHLORIDE 0.9% 1,000 ML IV STA (17:03)
--- NOTE | 2020-07-17 17:06 | ED ---
General Adult HPI - General Chief complaint: Abdominal Pain Stated complaint: ABD pain Time Seen by Provider: 07/17/20 16:54 Source: EMS, RN notes reviewed Mode of arrival: EMS Limitations: no limitations - History of Present Illness Initial comments: Sarahy is a 35-year-old female with a past medical history of gestational diabetes, gastric sleeve about [address] Coughlin who presents to the emergency room for upper abdominal pain. This started approximately 2 hours prior to arrival and patient was leaving work. States the pain is in the upper abdomen worse on the left side. She denies Radiating pain. Describes the pain as a sharp pain. States she has vomited about 5 times. She denies fevers or chills. She denies diarrhea. Patient reports she has not had diarrhea but has had all movements more frequently than normal. States that she usually has a bowel movement every 3 weeks however has had one for the past 3 days in a row. Patient has no other complaints at this time including shortness of breath, chest pain, headache, or visual changes. - Related Data Home Medications Medication Instructions Recorded Confirmed Flintstones Multivit W/Iron 2 tab PO DAILY 07/17/20 07/17/20 Previous Rx's Medication Instructions Recorded Omeprazole [PriLOSEC] 40 mg PO DAILY #30 capsule. 10/21/19 Ondansetron [Zofran ODT] 4 mg PO Q8HR PRN #15 tab 07/17/20 Allergies Allergy/AdvReac Type Severity Reaction Status Date / Time Penicillins Allergy Unknown Verified 07/17/20 18:11 Childhood Review of Systems ROS Statement: Those systems with pertinent positive or pertinent negative responses have been documented in the HPI. ROS Other: All systems not noted in ROS Statement are negative. Past Medical History Past Medical History: No Reported History Additional Past Medical History / Comment(s): Gestational diabetes 2017. History of Any Multi-Drug Resistant Organisms: None Reported Past Surgical History: Bariatric Surgery, Section, Tubal Ligation Additional Past Surgical History / Comment(s): Cesearean section x2 (2012, 2016), gastric sleeve 10/17/19 Past Anesthesia/Blood Transfusion Reactions: No Reported Reaction Additional Past Anesthesia/Blood Transfusion Reaction / Comment(s): No transfusion to date Past Psychological History: No Psychological Hx Reported Smoking Status: Former smoker Past Alcohol Use History: None Reported Past Drug Use History: None Reported - Past Family History Father Additional Family Medical History / Comment(s): crohns General Exam Limitations: no limitations General appearance: alert, in no apparent distress Head exam: Present: atraumatic, normocephalic, normal inspection Eye exam: Present: normal appearance, PERRL, EOMI. Absent: scleral icterus, conjunctival injection, periorbital swelling ENT exam: Present: normal exam, mucous membranes moist Neck exam: Present: normal inspection, full ROM. Absent: tenderness, meningismus, lymphadenopathy Respiratory exam: Present: normal lung sounds bilaterally. Absent: respiratory distress, wheezes, rales, rhonchi, stridor Cardiovascular Exam: Present: regular rate, normal rhythm, normal heart sounds. Absent: systolic murmur, diastolic murmur, rubs, gallop, clicks GI/Abdominal exam: Present: soft, tenderness (mild LUQ and epigastric tenderness), normal bowel sounds. Absent: distended, guarding, rebound, rigid Neurological exam: Present: alert Course Vital Signs 07/17/20 07/17/20 16:47 19:47 Temperature 97.9 F Pulse Rate 59 L 52 L Respiratory 18 18 Rate Blood Pressure 106/48 107/70 O2 Sat by Pulse 100 100 Oximetry Medical Decision Making - Medical Decision Making Vitals are stable. Patient is well-appearing. She does have epigastric and left upper quadrant tenderness. CBC unremarkable. CMP does show hypocalcemia however otherwise unremarkable. Troponin negative. EKG nonischemic. Urinalysis unremarkable. CT abdomen and pelvis shows a tiny amount of fluid in the pelvis that could be physiologic which appears improved compared to old exam. Mild endometrial thickening similar told exam. Nonobstructing left renal calculus as well as cholelithiasis. CT image was reviewed by myself and Dr. Davie jewell. At this time patient's pain is improved with pain medication. Patient is stable for discharge home. We will give her one more dose before she goes home. She will follow up with her surgeon tomorrow. If she has worsening symptoms she will return to the emergency room. - Lab Data Result diagrams: 07/17/20 17:47 07/17/20 17:47 Lab Results 07/17/20 07/17/20 07/17/20 Range/Units 17:47 17:47 17:47 WBC 7.9 (3.8-10.6) k/uL RBC 4.52 (3.80-5.40) m/uL Hgb 11.7 (11.4-16.0) gm/dL Hct 35.7 (34.0-46.0) % MCV 79.0 L (80.0-100.0) fL MCH 25.9 (25.0-35.0) pg MCHC 32.8 (31.0-37.0) g/dL RDW 16.9 H (11.5-15.5) % Plt Count 197 (150-450) k/uL MPV 7.8 Neutrophils % 84 % Lymphocytes % 10 % Monocytes % 6 % Eosinophils % 0 % Basophils % 0 % Neutrophils # 6.6 (1.3-7.7) k/uL Lymphocytes # 0.8 L (1.0-4.8) k/uL Monocytes # 0.5 (0-1.0) k/uL Eosinophils # 0.0 (0-0.7) k/uL Basophils # 0.0 (0-0.2) k/uL Anisocytosis Slight Microcytosis Slight Sodium (137-145) mmol/L Potassium (3.5-5.1) mmol/L Chloride (98-107) mmol/L Carbon Dioxide (22-30) mmol/L Anion Gap mmol/L BUN (7-17) mg/dL Creatinine (0.52-1.04) mg/dL Est GFR (CKD-EPI)AfAm (>60 ml/min/1.73 sqM) Est GFR (CKD-EPI)NonAf (>60 ml/min/1.73 sqM) Glucose (74-99) mg/dL Plasma Lactic Acid Keenan (0.7-2.0) mmol/L Calcium (8.4-10.2) mg/dL Total Bilirubin (0.2-1.3) mg/dL AST (14-36) U/L ALT (4-34) U/L Alkaline Phosphatase (38-126) U/L Troponin I (0.000-0.034) ng/mL Total Protein (6.3-8.2) g/dL Albumin (3.5-5.0) g/dL Amylase (30-110) U/L Lipase (23-300) U/L Urine Color Yellow Urine Appearance Clear (Clear) Urine pH 5.5 (5.0-8.0) Ur Specific [place] 1.025 (1.001-1.035) Urine Protein Negative (Negative) Urine Glucose (UA) Negative (Negative) Urine Ketones 1+ H (Negative) Urine Blood Negative (Negative) Urine Nitrite Negative (Negative) Urine Bilirubin Negative (Negative) Urine Urobilinogen 3.0 (<2.0) mg/dL Ur Leukocyte Esterase Negative (Negative) Urine HCG, Qual Not Detected (Not Detectd) Coronavirus (PCR) (Not Detectd) 07/17/20 07/17/20 07/17/20 Range/Units 17:47 17:47 17:47 WBC (3.8-10.6) k/uL RBC (3.80-5.40) m/uL Hgb (11.4-16.0) gm/dL Hct (34.0-46.0) % MCV (80.0-100.0) fL MCH (25.0-35.0) pg MCHC (31.0-37.0) g/dL RDW (11.5-15.5) % Plt Count (150-450) k/uL MPV Neutrophils % % Lymphocytes % % Monocytes % % Eosinophils % % Basophils % % Neutrophils # (1.3-7.7) k/uL Lymphocytes # (1.0-4.8) k/uL Monocytes # (0-1.0) k/uL Eosinophils # (0-0.7) k/uL Basophils # (0-0.2) k/uL Anisocytosis Microcytosis Sodium 138 (137-145) mmol/L Potassium 3.5 (3.5-5.1) mmol/L Chloride 111 H (98-107) mmol/L Carbon Dioxide 21 L (22-30) mmol/L Anion Gap 6 mmol/L BUN 18 H (7-17) mg/dL Creatinine 0.46 L (0.52-1.04) mg/dL Est GFR (CKD-EPI)AfAm >90 (>60 ml/min/1.73 sqM) Est GFR (CKD-EPI)NonAf >90 (>60 ml/min/1.73 sqM) Glucose 79 (74-99) mg/dL Plasma Lactic Acid [place] 0.5 L (0.7-2.0) mmol/L Calcium 7.7 L (8.4-10.2) mg/dL Total Bilirubin 0.3 (0.2-1.3) mg/dL AST 50 H (14-36) U/L ALT 28 (4-34) U/L Alkaline Phosphatase 86 (38-126) U/L Troponin I <0.012 (0.000-0.034) ng/mL Total Protein 5.9 L (6.3-8.2) g/dL Albumin 3.5 (3.5-5.0) g/dL Amylase 44 (30-110) U/L Lipase 83 (23-300) U/L Urine Color Urine Appearance (Clear) Urine pH (5.0-8.0) Ur Specific [place] (1.001-1.035) Urine Protein (Negative) Urine Glucose (UA) (Negative) Urine Ketones (Negative) Urine Blood (Negative) Urine Nitrite (Negative) Urine Bilirubin (Negative) Urine Urobilinogen (<2.0) mg/dL Ur Leukocyte Esterase (Negative) Urine HCG, Qual (Not Detectd) Coronavirus (PCR) (Not Detectd) 07/17/20 Range/Units 17:47 WBC (3.8-10.6) k/uL RBC (3.80-5.40) m/uL Hgb (11.4-16.0) gm/dL Hct (34.0-46.0) % MCV (80.0-100.0) fL MCH (25.0-35.0) pg MCHC (31.0-37.0) g/dL RDW (11.5-15.5) % Plt Count (150-450) k/uL MPV Neutrophils % % Lymphocytes % % Monocytes % % Eosinophils % % Basophils % % Neutrophils # (1.3-7.7) k/uL Lymphocytes # (1.0-4.8) k/uL Monocytes # (0-1.0) k/uL Eosinophils # (0-0.7) k/uL Basophils # (0-0.2) k/uL Anisocytosis Microcytosis Sodium (137-145) mmol/L Potassium (3.5-5.1) mmol/L Chloride (98-107) mmol/L Carbon Dioxide (22-30) mmol/L Anion Gap mmol/L BUN (7-17) mg/dL Creatinine (0.52-1.04) mg/dL Est GFR (CKD-EPI)AfAm (>60 ml/min/1.73 sqM) Est GFR (CKD-EPI)NonAf (>60 ml/min/1.73 sqM) Glucose (74-99) mg/dL Plasma Lactic Acid [place] (0.7-2.0) mmol/L Calcium (8.4-10.2) mg/dL Total Bilirubin (0.2-1.3) mg/dL AST (14-36) U/L ALT (4-34) U/L Alkaline Phosphatase (38-126) U/L Troponin I (0.000-0.034) ng/mL Total Protein (6.3-8.2) g/dL Albumin (3.5-5.0) g/dL Amylase (30-110) U/L Lipase (23-300) U/L Urine Color Urine Appearance (Clear) Urine pH (5.0-8.0) Ur Specific [place] (1.001-1.035) Urine Protein (Negative) Urine Glucose (UA) (Negative) Urine Ketones (Negative) Urine Blood (Negative) Urine Nitrite (Negative) Urine Bilirubin (Negative) Urine Urobilinogen (<2.0) mg/dL Ur Leukocyte Esterase (Negative) Urine HCG, Qual (Not Detectd) Coronavirus (PCR) Not Detected (Not Detectd) Disposition Clinical Impression: Abdominal pain Disposition: HOME SELF-CARE Condition: Good Instructions (If sedation given, give patient instructions): Abdominal Pain (ED) Additional Instructions: Please continue to take your Prilosec. Please follow-up with your surgeon in 1- 2 days. If you have worsening symptoms return to the emergency room for re-evaluation. Prescriptions: Ondansetron [Zofran ODT] 4 mg PO Q8HR PRN #15 tab PRN Reason: Nausea Is patient prescribed a controlled substance at d/c from ED?: No Referrals: Ale Gibbs MD [Primary Care Provider] - 1-2 days Eyal Bledsoe MD [Medical Doctor] - 1-2 days Time of Disposition: 19:53
[2020-07-17 17:57] LABS: Anisocytosis Slight; Basophils % (A) 0 %; Eosinophils % (A) 0 %; HCT 35.7 % (34.0-46.0); HGB 11.7 gm/dL (11.4-16.0); Lymphocytes # (A) 0.8 k/uL (1.0-4.8); Lymphocytes % (A) 10 %; MCH 25.9 pg (25.0-35.0); MCHC 32.8 g/dL (31.0-37.0); Mean Platelet Volume 7.8; Microcytosis Slight; Monocytes # (A) 0.5 k/uL (0-1.0); Monocytes % (A) 6 %; Neutrophils # (A) 6.6 k/uL (1.3-7.7); Neutrophils % (A) 84 %; Platelet Count 197 k/uL (150-450); RBC 4.52 m/uL (3.80-5.40); RDW 16.9 % (11.5-15.5); WBC 7.9 k/uL (3.8-10.6)
[2020-07-17 18:02] LABS: Appearance,Urine Clear (Clear); Bilirubin,Urine Negative (Negative); Blood,Urine Negative (Negative); Color,Urine Yellow; Glucose,Urine (UA) Negative (Negative); Ketones,Urine 1+ (Negative); Leukocyte Esterase,Urine Negative (Negative); Nitrite,Urine Negative (Negative); PH, Urine 5.5 (5.0-8.0); Protein,Urine Negative (Negative); Specific Gravity,Urine 1.025 (1.001-1.035)
[2020-07-17 18:08] LABS: ALT 28 U/L (4-34); AST 50 U/L (14-36); African American GFR (CKD) >90 (>60 ml/min/1.73 sqM); Albumin 3.5 g/dL (3.5-5.0); Alkaline Phosphatase 86 U/L (38-126); Amylase 44 U/L (30-110); Anion Gap 6 mmol/L; Blood Urea Nitrogen 18 mg/dL (7-17); Calcium 7.7 mg/dL (8.4-10.2); Carbon Dioxide 21 mmol/L (22-30); Chloride 111 mmol/L (98-107); Glucose 79 mg/dL (74-99); Lipase 83 U/L (23-300); Non-African American GFR(CKD) >90 (>60 ml/min/1.73 sqM); Potassium 3.5 mmol/L (3.5-5.1); Sodium 138 mmol/L (137-145); Total Bilirubin 0.3 mg/dL (0.2-1.3); Total Protein 5.9 g/dL (6.3-8.2)
--- NOTE | 2020-07-17 19:19 | CT ---
EXAMINATION TYPE: CT abdomen pelvis w con DATE OF EXAM: 07/17/2020 COMPARISON: 02/24/2020 HISTORY: Nausea, vomiting, hx of gastric sleeve x1 year ago CT DLP: 1008.8 mGycm Automated exposure control for dose reduction was used. CONTRAST: Performed with IV Contrast, patient injected with 100 mL of Isovue 300. Lung bases are clear. There is no pleural effusion. Heart size is normal. There is no pericardial eff usion. There is gastric bariatric surgery. The liver and spleen and pancreas appear intact. There are a few gallstones. The bile ducts are not dilated. There is no adrenal mass. Kidneys show satisfactory contrast opacification. There is 2 mm calculus lo wer pole left kidney. There is no hydronephrosis. The ureters are not dilated. The bladder distends s moothly. Uterus is anteverted. There is some mild thickening of the endometrium that measures 2.4 cm. There is tiny amount of fluid in the cul-de-sac. There is no evidence of a pelvic mass. There is no inguinal hernia. Appendix is posterior and appears normal. There is no mesenteric edema. There is no ascites or free a ir. There is no bowel obstruction. The lumbar vertebra have normal alignment. There is no compression fracture. The bony pelvis is intact. Hip joints are intact. IMPRESSION: Tiny amount of fluid in the pelvis could be physiologic. This appears improved compared to old exam. Mild endometrial thickening is similar to old exam. Nonobstructing left renal calculus. Cholelithiasis.
[2020-07-17] MEDS ORDERED: HYDROmorphone 0.5 MG/0.5 ML SYRINGE IVP STA (19:40)
[2020-07-17 19:48] VITALS: BP 107/70; PULSE 52
== END 2020-07-17 20:55 | disposition home or self-care (01) ==
LOC: EC 16:40
DX: R10.12 Left upper quadrant pain (principal); R10.13 Epigastric pain; Z98.51 Tubal ligation status; Z87.891 Personal history of nicotine dependence
CPT/HCPCS: 36415; 93005; 80053; 82150; 83605; 83690; 84484; 85025; 81003; 81025; 87635; 74177; 99284; 96374; 96375; J2270; J2405; J1170; Q9967

== ENCOUNTER → 2020-07-24 | Outpatient (CLI) | payer OTHER ==
[2020-07-24 14:18] VITALS: BP 116/60; PULSE 53; RESP 16; TEMP 98.3; BMI 30.1
--- NOTE | 2020-07-24 15:21 | P.HPBAR ---
Bariatric H&P - History & Physicial H&P Date: 07/24/20 History & Physicial: Visit/CC: f/u Patient initial contact: Initial weight: 110.722 kg Initial weight in pounds: 244.10 Height: 5 ft 3.75 in Initial BMI: 42.2 Last weight: Current weight: 78.925 kg Current weight in pounds: 174.00 Current BMI: 30.1 Eldred body weight (based on NIH guidelines): 53.864 kg Excess body weight loss: 55.9% The patient is a 35 year-old F who presents for Bariatric Assessment. Since patient's last visit in June she had an episode on 07/17 where she developed pain in the epigastrium that radiated to the right upper quadrant and between her shoulder blades. Symptoms lasted for 2 hours. Went to the ER via EMS. CAT scan was performed. CAT scan shows gallstones. Sleeve itself appears normal. He had a mild episode in May of this year. She has been on a light low-fat diet since that time. No change in the color of her skin urine or stool. White blood cell count normal. AST slightly elevated. Past Medical History Past Medical History: No Reported History Additional Past Medical History / Comment(s): Gestational diabetes 2017. History of Any Multi-Drug Resistant Organisms: None Reported Past Surgical History: Bariatric Surgery, Section, Tubal Ligation Additional Past Surgical History / Comment(s): Cesearean section x2 (2012, 2016), gastric sleeve 10/17/19 Past Anesthesia/Blood Transfusion Reactions: No Reported Reaction Additional Past Anesthesia/Blood Transfusion Reaction / Comm: No transfusion to date Past Psychological History: No Psychological Hx Reported Smoking Status: Former smoker Past Alcohol Use History: None Reported Additional Past Alcohol Use History / Comment(s): WAS 1/2 pack/day, SMOKED since age 15 (down from 1.5 packs/day), NOW DOWN TO 3 CIGARETTES DAILY USING CHANTIX. Past Drug Use History: None Reported - Past Family History Father Additional Family Medical History / Comment(s): crohns Surgical - Exam Vital Signs Temp Pulse Resp BP 98.3 F 53 L 16 116/60 07/24/20 14:15 07/24/20 14:15 07/24/20 14:15 07/24/20 14:15 Physical exam: General: Well-developed, well-nourished HEENT: Normocephalic, sclerae nonicteric Abdomen: Nontender, nondistended Extremities: No edema Neuro: Alert and oriented Bariatric Assessment & Plan (1) Chronic cholecystitis Narrative/Plan: 35-year-old female with recent hospital visit for suspected chronic cholecystitis. Options reviewed. We'll proceed with laparoscopic cholecystectomy in the next several weeks. Risks of bleeding, infection, bile leak, bile duct injury, retained common bile duct stone, trocar injury, c onversion to an open procedure, hernia, anesthesia related complications were reviewed. The patient understands and wishes to proceed. Status: Acute Bariatric Checklist Checklist: Plan: Checklist: EGD: 1. Hiatal hernia: 2. H. Pylori: HgbA1c: Vitamin D: Smoking: Former smoker Primary care physician referral: Bernie Psychiatry clearance: Cardiology clearance: Sleep study: Diet journal: VTE risk score: VTE risk level: Rehab needs at discharge:
== END ==
LOC: BARWHC3 14:06
PROVIDERS: ATTEND Surgery
DX: K81.1 Chronic cholecystitis (principal); Z87.891 Personal history of nicotine dependence
CPT/HCPCS: 97803; G0463; 99211

== ENCOUNTER 2020-08-10 06:13 | Day surgery (SDC) | payer OTHER ==
[2020-08-08 10:35] VITALS: BMI 30.2
--- NOTE | 2020-08-09 13:38 | P.GSHP ---
History of Present Illness H&P Date: 08/09/20 Chief Complaint: Chronic cholecystitis 35-year-old female known to our service from previous sleeve gastrectomy. Patient had to go to the ER in early July with complaints of right upper quadrant pain with radiation to the shoulder blades. CAT scan showed gallstones. She has had a few other minor episodes as well. AST was slightly elevated. No change in the color of her skin urine or stool. Past Medical History Past Medical History: GERD/Reflux Additional Past Medical History / Comment(s): hx. Gestational diabetes 2017, RUQ pain History of Any Multi-Drug Resistant Organisms: None Reported Past Surgical History: Bariatric Surgery, Section, Tubal Ligation Additional Past Surgical History / Comment(s): Cesearean section x2 (2012, 2016), gastric sleeve 10/17/19 Past Anesthesia/Blood Transfusion Reactions: No Reported Reaction Additional Past Anesthesia/Blood Transfusion Reaction / Comment(s): No transfusion to date Smoking Status: Former smoker - Past Family History Father Additional Family Medical History / Comment(s): crohns Medications and Allergies Home Medications Medication Instructions Recorded Confirmed Type Omeprazole [PriLOSEC] 40 mg PO DAILY #30 capsule. 10/21/19 08/08/20 Rx Flintstones Multivit W/Iron 2 tab PO DAILY 07/17/20 08/08/20 History Allergies Allergy/AdvReac Type Severity Reaction Status Date / Time Penicillins Allergy Unknown Verified 08/08/20 10:19 Childhood Surgical - Exam Physical exam: General: Well-developed, well-nourished HEENT: Normocephalic, sclerae nonicteric Abdomen: Nontender, nondistended Extremities: No edema Neuro: Alert and oriented Assessment and Plan (1) Chronic cholecystitis Narrative/Plan: Will proceed with laparoscopic , possible open cholecystectomy tomorrow. Risks of bleeding, infection, bile leak, bile duct injury, retained common bile duct stone, trocar injury, conversion to an open procedure, hernia, anesthesia related complications were reviewed. The patient understands and wishes to proceed. Status: Acute Code(s): K81.1 - CHRONIC CHOLECYSTITIS SNOMED Code(s): 10077949
[~2020-08-10 06:13] MED LIST changes: +ACETAMINOPHEN TAB 500 MG TAB PO PRN; +DEXAMETHASONE SOD PHOSPHATE 4 MG/ML 1 ML VIAL IV ONE; -ENOXAPARIN 40 MG/0.4 ML SYRINGE SQ ONE; +HEPARIN SODIUM,PORCINE 5,000 UNIT/ML 1 ML VIAL SQ PRN; +LACTATED RINGERS 1,000 ML IV SCH; +MIDAZOLAM 2 MG/2 ML VIAL IV PRN; +ONDANSETRON 4 MG/2 ML VIAL IVP ONE; +SCOPOLAMINE 1.5MG/72HR PATCH TRANSDERM ONE
[2020-08-10 08:00] VITALS: RESP 16
[2020-08-10] MEDS ORDERED: HEPARIN SODIUM,PORCINE 5,000 UNIT/ML 1 ML VIAL ONE (09:08)
[2020-08-10] MEDS ORDERED: NEOSTIGMINE 1 MG/ML 10 ML VIAL ONE (09:09)
[2020-08-10] MEDS ORDERED: GLYCOPYRROLATE 0.2 MG/ML 2 ML VIAL ONE (09:09)
[2020-08-10] MEDS ORDERED: ONDANSETRON 4 MG/2 ML VIAL ONE (09:09)
[2020-08-10] MEDS ORDERED: KETOROLAC 15 MG/ML 1 ML VIAL ONE (09:09)
[2020-08-10] MEDS ORDERED: fentaNYL (PF) 50 MCG/ML 2 ML AMP ONE (09:09)
[2020-08-10] MEDS ORDERED: LIDOCAINE 1% INJ 10MG/ML (20 ML MDV) ONE (09:09)
[2020-08-10] MEDS ORDERED: MIDAZOLAM 2 MG/2 ML VIAL ONE (09:09)
[2020-08-10] MEDS ORDERED: ROCURONIUM 10 MG/ML (5 ML VIAL) IV ONE (09:09)
[2020-08-10] MEDS ORDERED: SUCCINYLCHOLINE CHLORIDE 100 MG/5 ML SYR IV ONE (09:09)
[2020-08-10] MEDS ORDERED: PROPOFOL 10 MG/ML 20 ML VIAL IV ONE (09:09)
[2020-08-10] MEDS ORDERED: BUPIVACAINE (PF) 0.25% 30 ML VIAL SQ ONE ×2 (09:37)
[2020-08-10] MEDS ORDERED: ONDANSETRON 4 MG/2 ML VIAL IVP PRN (10:21)
--- NOTE | 2020-08-10 10:27 | P.OP ---
Date of Procedure: 08/10/20 Procedure(s) Performed: PREOPERATIVE DIAGNOSIS: Chronic cholecystitis POSTOPERATIVE DIAGNOSIS: Same PROCEDURE: Laparoscopic cholecystectomy SURGEON: Rakan EBL: Minimal see anesthesia record ANESTHESIA: Gen. COMPLICATIONS: None OPERATIVE PROCEDURE: The patient was brought and placed on the operating room table in the supine position. The patient was placed under general anesthesia at that time. The abdomen was prepped and draped in the usual sterile fashion. A small vertical infraumbilical incision was made. The fascia was grasped with the Vernell forceps. The fascia was retracted anteriorly. The Veress needle was advanced into the peritoneal cavity. The saline drop test was normal. Insufflation took place up to 15 mmHg. A 5 mm optical trocar was advanced and the peritoneal cavity. 2 additional 5 mm trochars were placed in the right upper quadrant under direct visualization. A 12 mm trocar was advanced into the epigastric incision site. The gallbladder was retracted superiorly and laterally. The peritoneum overlying the infundibulum was bluntly dissected. The patient's cystic duct was visualized. The junction between the cystic duct common and hepatic duct was identified. The cystic duct was then divided after placement of 3 12 mm clips on the patient's side and one on the specimen side. The cystic artery was identified and clipped as well. A small vessel was seen along the gallbladder fossa and clipped as well. The gallbladder was then removed from the liver bed using electrocautery. The gallbladder was then removed from the epigastric trocar site with an Endo Catch bag. The gallbladder fossa was irrigated with saline. There was no evidence of any bleeding or biliary drainage seen. The fascia at the 12 millimeter site was closed using a Дмитрий-Adelaida 0 Vicryl stitch. The trochars were then removed. The skin at all 4 sites was closed using a 4-0 Monocryl stitch. Skin glue was utilized on the incision sites. At the end of this procedure the sponge and needle counts were correct. DISPOSITION: Stable to the recovery room
[2020-08-10 10:31] VITALS: TEMP 97.4
[2020-08-10] MEDS: HYDROmorphone 0.5 MG/0.5 ML SYRINGE IVP PRN ×2 (10:40→10:45)
[2020-08-10 11:53] VITALS: BP 104/67
[2020-08-10] MEDS ORDERED: ACETAMINOPHEN TAB 325 MG TAB PO SCH (12:00)
[2020-08-10 12:48] VITALS: PULSE 53
[2020-08-10] MEDS ORDERED: IBUPROFEN 600 MG TAB PO SCH (13:22)
== END 2020-08-10 13:15 | disposition home or self-care (01) ==
LOC: OR 06:13
PROVIDERS: ATTEND Surgery
DX: K80.10 Calculus of gallbladder with chronic cholecystitis without obstruction (principal); K21.9 Gastro-esophageal reflux disease without esophagitis; Z98.84 Bariatric surgery status; Z86.32 Personal history of gestational diabetes; Z98.890 Other specified postprocedural states; Z98.51 Tubal ligation status; Z87.891 Personal history of nicotine dependence; Z79.899 Other long term (current) drug therapy; Z88.0 Allergy status to penicillin; Z83.79 Family history of other diseases of the digestive system
CPT/HCPCS: 81025; 88304; 47562; J2250; J1644; J1100; J2710; J0690; J2405; J2001; J3010; J1885; J0330; J2704; J1170; J1790

== ENCOUNTER → 2020-10-09 | Outpatient (CLI) | payer OTHER ==
[2020-10-09 15:17] LABS: HCT 31.5 % (34.0-46.0); HGB 10.4 gm/dL (11.4-16.0); Hypochromasia Slight; MCH 26.9 pg (25.0-35.0); MCHC 33.1 g/dL (31.0-37.0); MCV 81.3 fL (80.0-100.0); Platelet Count 208 k/uL (150-450); RBC 3.87 m/uL (3.80-5.40); RDW 13.9 % (11.5-15.5); WBC 4.3 k/uL (3.8-10.6)
[2020-10-09 15:28] VITALS: TEMP 98; BMI 30.1
[2020-10-09 15:37] VITALS: BP 106/60; PULSE 70
--- NOTE | 2020-10-09 17:37 | P.BASOAP ---
Subjective Progress Note Date: 10/09/20 Principal diagnosis: Morbid obesity Patient returns for recheck. Underwent laparoscopic cholecystectomy in July. Doing well since then. No change in weight. She is moving to [place]. Still on omeprazole but no reflux symptoms. She is due for annual blood work. Objective - Vital Signs Vital signs: Vital Signs Temp 98 F 10/09/20 15:23 Pulse 70 10/09/20 15:23 Resp BP 106/60 10/09/20 15:23 Pulse Ox Intake & Output 10/08/20 10/09/20 10/09/20 18:59 06:59 18:59 Weight 78.925 kg - Exam Abdomen: Soft, nontender, nondistended - Labs CBC & Chem 7: 10/09/20 14:37 Labs: Abnormal Lab Results - Last 24 Hours (Table) 10/09/20 Range/Units 14:37 Hgb 10.4 L (11.4-16.0) gm/dL Hct 31.5 L (34.0-46.0) % Assessment/Plan (1) Morbid obesity Narrative/Plan: Patient doing well at this time. Continue dietary and exercise regimen. Start omeprazole every other day and discontinue if no reflux symptoms. Check annual labs. Follow-up 6 months. Plan: Date: 10/09/20 Initial Weight: 110.722 kg Initial BMI: 42.2 Current Weight: 78.925 kg Current BMI: 30.1 Type of Surgery: Total Volume in Band: Previous Volume: Volume Removed: Volume Added: Band Size:
[2020-10-10 00:25] LABS: African American GFR (CKD) 143.3 (60.0-200.0); Albumin/Globulin Ratio 1.82 (1.60-3.17); Anion Gap 10.2 mmol/L (4.00-12.00); Calcium 8.7 mg/dL (8.7-10.3); Carbon Dioxide 22.8 mmol/L (21.6-31.8); Folate, Serum 23.5 ng/mL; Globulin 2.2 g/dL (1.6-3.3); Non-African American GFR(CKD) 123.6 (60.0-200.0); Potassium 4.6 mmol/L (3.5-5.5); Total Bilirubin 0.3 mg/dL (0.2-1.2); Total Protein 6.2 g/dL (6.2-8.2)
== END ==
LOC: BARWHC3 13:28
PROVIDERS: ATTEND Surgery
DX: E66.01 Morbid (severe) obesity due to excess calories (principal); Z68.30 Body mass index [BMI] 30.0-30.9, adult; Z88.0 Allergy status to penicillin; Z87.891 Personal history of nicotine dependence
CPT/HCPCS: 84425; 80053; 82607; 82746; 83540; 85027; 82306; 36415; G0463; 99211

== ENCOUNTER → 2021-03-19 | Outpatient (CLI) | payer OTHER ==
[2021-03-19 15:53] VITALS: BP 119/71; PULSE 61; RESP 16; TEMP 98.2; BMI 26.9
--- NOTE | 2021-03-19 19:38 | P.BASOAP ---
Subjective Progress Note Date: 03/19/21 Principal diagnosis: Morbid obesity The patient returns for evaluation. Last seen in September of this year. She moved out of town but then moved back. Since last visit she stopped her proton pump inhibitors. Lately she has had increased heartburn and would like a refill for her Prilosec. Had IV iron when her labs were checked in September. Her hemoglobin was 10.4 and her iron level was 18. Describes heavy vaginal bleeding. Patient has described a rash beneath her skin folds from her excess weight loss. Patient is interested in plastic surgery evaluation. Objective - Vital Signs Vital signs: Vital Signs Temp 98.2 F 03/19/21 15:47 Pulse 61 03/19/21 15:47 Resp 16 03/19/21 15:47 BP 119/71 03/19/21 15:47 Pulse Ox Intake & Output 03/19/21 03/19/21 03/20/21 06:59 18:59 06:59 Weight 70.76 kg - Exam Physical exam: General: Well-developed, well-nourished HEENT: Normocephalic, sclerae nonicteric Abdomen: Nontender, nondistended Extremities: No edema Neuro: Alert and oriented Assessment/Plan (1) Morbid obesity Narrative/Plan: Patient doing well at this time. Continues to have excellent weight loss. We'll refill the patient's omeprazole prescription. Follow-up 6 months. Check repeat labs at this time. Plan: Date: 03/19/21 Initial Weight: 110.722 kg Initial BMI: 42.2 Current Weight: 70.76 kg Current BMI: 26.9 Type of Surgery: Total Volume in Band: Previous Volume: Volume Removed: Volume Added: Band Size:
== END ==
LOC: BARWHC3 14:52
PROVIDERS: ATTEND Surgery
DX: E66.01 Morbid (severe) obesity due to excess calories (principal); Z68.26 Body mass index [BMI] 26.0-26.9, adult; Z87.891 Personal history of nicotine dependence; Z88.0 Allergy status to penicillin
CPT/HCPCS: 99211

== ENCOUNTER → 2021-03-28 | Outpatient (CLI) | payer OTHER ==
[2021-03-28 15:37] LABS: HCT 35.5 % (37.2-46.3); MCH 26.8 pg (27.0-32.0); MCV 86.6 fL (80.0-97.0); Mean Platelet Volume 10.3 fL (9.5-12.2); Platelet Count 220 X 10*3/uL (140-440); RDW 15.2 % (11.5-14.5); WBC 3.34 X 10*3/uL (4.50-10.00)
[2021-03-28 16:52] LABS: African American GFR (CKD) 133.8 (60.0-200.0); Albumin 4.4 g/dL (3.8-4.9); Albumin/Globulin Ratio 1.98 (1.60-3.17); Anion Gap 11.4 mmol/L (4.00-12.00); BUN/Creat Ratio 31.18 Ratio (12.00-20.00); Blood Urea Nitrogen 18.8 mg/dL (9.0-27.0); Carbon Dioxide 22.7 mmol/L (21.6-31.8); Globulin 2.2 g/dL (1.6-3.3); Non-African American GFR(CKD) 115.4 (60.0-200.0); Potassium 4.3 mmol/L (3.5-5.5); Total Bilirubin 0.3 mg/dL (0.30-1.20); Total Protein 6.6 g/dL (6.2-8.2)
== END | disposition home or self-care (01) ==
LOC: LABWHC1 10:06
PROVIDERS: ATTEND Surgery
DX: E55.9 Vitamin D deficiency, unspecified (principal); E66.01 Morbid (severe) obesity due to excess calories; K90.89 Other intestinal malabsorption
CPT/HCPCS: 36415; 80053; 82306; 82607; 82746; 83540; 84425; 85027

== ENCOUNTER → 2021-08-27 | Outpatient (CLI) | payer OTHER ==
[2021-08-27 14:28] VITALS: BP 114/67; PULSE 64; RESP 16; TEMP 98.2; BMI 24.5
--- NOTE | 2021-08-27 14:44 | P.BASOAP ---
Subjective Progress Note Date: 08/27/21 Principal diagnosis: Morbid obesity Patient returns for evaluation. Last seen in March. Since that time the patient has had further weight loss. She has lost 15 pounds. She thinks she has lost too much weight. Patient describes early satiety. No vomiting. She has had some nighttime regurgitation a few times. She says that sometimes it feels like is stuck in her chest. Recently has had some dizzy episodes. Labs were checked by her primary and she was found to have a hemoglobin of 7.9 and an iron of 14. She has an appointment to see cardiology neurology and hematology. Father with Crohn's. Patient with history of constipation but no rectal bleeding. Still having heavy menstrual flow. Objective - Vital Signs Vital signs: Vital Signs Temp 98.2 F 08/27/21 14:25 Pulse 64 08/27/21 14:25 Resp 16 08/27/21 14:25 BP 114/67 08/27/21 14:25 Pulse Ox Intake & Output 08/26/21 08/27/21 08/27/21 18:59 06:59 18:59 Weight 64.183 kg - Exam Abdomen: Soft, nontender, nondistended Assessment/Plan (1) Morbid obesity Narrative/Plan: 36-year-old female with history of morbid obesity. Losing 2 much weight at this time. Will proceed with upper and lower endoscopy. Await appointments with neurology hematology and cardiology. Plan: Date: 08/27/21 Initial Weight: 110.722 kg Initial BMI: 42.2 Current Weight: 64.183 kg Current BMI: 24.5 Type of Surgery: Total Volume in Band: Previous Volume: Volume Removed: Volume Added: Band Size:
== END ==
LOC: BARWHC3 13:50
PROVIDERS: ATTEND Surgery
DX: E66.01 Morbid (severe) obesity due to excess calories (principal); Z68.24 Body mass index [BMI] 24.0-24.9, adult; Z88.0 Allergy status to penicillin; Z87.891 Personal history of nicotine dependence
CPT/HCPCS: 97803; 99211

== ENCOUNTER → 2021-09-06 | Outpatient (CLI) | payer OTHER ==
--- NOTE | 2021-09-06 14:19 | US ---
EXAMINATION TYPE: US venous doppler duplex LE LT DATE OF EXAM: 09/06/2021 1:58 PM COMPARISON: NONE CLINICAL HISTORY: R22.42 SWELLING LEFT LOWER LIMB. left leg edema for 3 years SIDE PERFORMED: left TECHNIQUE: The lower extremity deep venous system is examined utilizing real time linear array sonog eleazar with graded compression, doppler sonography and color-flow sonography. VESSELS IMAGED: Common Femoral Vein Deep Femoral Vein Greater Saphenous Vein * Femoral Vein Popliteal Vein Small Saphenous Vein * Proximal Calf Veins (* superficial vessels) Left Leg: no evidence of DVT IMPRESSION: 1. Left lower extremity ultrasound negative for deep venous thrombosis.
== END | disposition home or self-care (01) ==
LOC: RADUSWWP 13:39
PROVIDERS: ATTEND Internal Medicine Hematology & Oncology
DX: R22.42 Localized swelling, mass and lump, left lower limb (principal)

== ENCOUNTER 2021-09-10 08:01 | Day surgery (SDC) | payer OTHER ==
[2021-09-06 11:46] VITALS: BMI 23.9
[~2021-09-10 08:01] MED LIST changes: -ACETAMINOPHEN TAB 500 MG TAB PO PRN; -DEXAMETHASONE SOD PHOSPHATE 4 MG/ML 1 ML VIAL IV ONE; -HEPARIN SODIUM,PORCINE 5,000 UNIT/ML 1 ML VIAL SQ PRN; -LACTATED RINGERS 1,000 ML IV SCH; +LIDOCAINE 1% (10MG/ML) FOR IV START INTRADERMA PRN; -MIDAZOLAM 2 MG/2 ML VIAL IV PRN; -ONDANSETRON 4 MG/2 ML VIAL IVP ONE; -SCOPOLAMINE 1.5MG/72HR PATCH TRANSDERM ONE
[2021-09-10 09:30] VITALS: RESP 16
[2021-09-10] MEDS: LACTATED RINGERS 1,000 ML IV SCH ×2 (09:35→10:55)
[2021-09-10] MEDS ORDERED: NA PHOS,M-B/NA PHOS,DI-BA 133 ML ENEMA RECTAL ONE (09:55)
[2021-09-10 10:06] VITALS: TEMP 98.4
[2021-09-10] MEDS ORDERED: PROPOFOL 10 MG/ML 20 ML VIAL IV ONE (10:58)
--- NOTE | 2021-09-10 11:16 | P.GSHP ---
History of Present Illness H&P Date: 09/10/21 Chief Complaint: GERD, anemia 36-year-old female here today for upper endoscopy and lower endoscopy. Patient with complaints of reflux, progressive weight loss, and iron deficiency anemia. Patient's colon prep did not go well and patient is not clear today. Options reviewed with the patient. We'll proceed with upper endoscopy only at this time. We'll reschedule a colonoscopy at a later date. Past Medical History Past Medical History: GERD/Reflux Additional Past Medical History / Comment(s): hx. Gestational diabetes 2017, RUQ pain, recent bradycardia, ? DVT, having a doppler today. History of Any Multi-Drug Resistant Organisms: None Reported Past Surgical History: Bariatric Surgery, Section, Tubal Ligation Additional Past Surgical History / Comment(s): Cesearean section x2 (2012, 2016), gastric sleeve 10/17/19 Past Anesthesia/Blood Transfusion Reactions: No Reported Reaction Additional Past Anesthesia/Blood Transfusion Reaction / Comment(s): No transfusion to date Smoking Status: Former smoker - Past Family History Father Additional Family Medical History / Comment(s): crohns Medications and Allergies Home Medications Medication Instructions Recorded Confirmed Type Omeprazole [PriLOSEC] 40 mg PO DAILY #30 capsule. 10/21/19 09/10/21 Rx Flintstones Multivit W/Iron 2 tab PO DAILY 07/17/20 09/10/21 History Iron 18 mg PO DIRECTED 08/27/21 09/10/21 History Ergocalciferol [Vitamin D2 (1250 1,250 mcg PO WEEKLY 09/06/21 09/10/21 History Mcg = [id number] Iu)] Allergies Allergy/AdvReac Type Severity Reaction Status Date / Time Penicillins Allergy Unknown Verified 09/10/21 09:35 Childhood Surgical - Exam Vital Signs Temp Pulse Resp BP Pulse Ox 99.0 F 55 L 16 118/58 100 09/10/21 09:18 09/10/21 09:18 09/10/21 09:18 09/10/21 09:18 09/10/21 09:18 Physical exam: General: Well-developed, well-nourished HEENT: Normocephalic, sclerae nonicteric Abdomen: Nontender, nondistended Extremities: No edema Neuro: Alert and oriented Assessment and Plan (1) GERD (gastroesophageal reflux disease) Narrative/Plan: Will proceed with upper endoscopy at this time. Current Visit: No Status: Acute Code(s): K21.9 - GASTRO-ESOPHAGEAL REFLUX DISEASE WITHOUT ESOPHAGITIS SNOMED Code(s): 748813863
--- NOTE | 2021-09-10 11:19 | P.PCN ---
Date of Procedure: 09/10/21 Procedure(s) Performed: Preoperative Dx: GERD, anemia Postoperative Dx: Mild gastritis Procedure: EGD with Bx Anesthesia: Sedation Endoscopist: Dr. Bledsoe Specimens: Antrum Endoscopic Procedure: The patient was on the endoscopy table in the left decubitus position. The Olympus gastroscope was inserted into the oropharynx and passed under direct visualization to the region of the third portion of the duodenum. From that point the scope was slowly withdrawn inspecting all surfaces carefully. There were no neoplastic inflammatory or polypoid lesions throughout the duodenum. The pylorus was widely patent. The stomach was carefully inspected. There was minimal gastritis present. A biopsy of the a ntrum took place to rule out H. pylori. We did not perform any retroflexion given the patient's previous sleeve gastrectomy. The staple line did not reveal any abnormalities. As we were withdrawing the scope into the esophagus I questioned whether there may have been a small sliding hiatal hernia. The esophagus was examined carefully and there were no abnormalities seen. The patient was then taken to the recovery room in stable condition per anesthesia guidelines. Recommendations: No upper GI evidence of bleeding. Await biopsy results. Will reschedule colonoscopy.
[2021-09-10 11:40] VITALS: BP 109/67; PULSE 48
== END 2021-09-10 12:18 | disposition home or self-care (01) ==
LOC: ORWHC2ENDO 08:01
PROVIDERS: ATTEND Surgery
DX: K21.00 Gastro-esophageal reflux disease with esophagitis, without bleeding (principal); K29.50 Unspecified chronic gastritis without bleeding; D50.9 Iron deficiency anemia, unspecified; Z83.79 Family history of other diseases of the digestive system; Z86.718 Personal history of other venous thrombosis and embolism; Z87.891 Personal history of nicotine dependence; Z88.0 Allergy status to penicillin; Z79.899 Other long term (current) drug therapy
CPT/HCPCS: 43239; 81025; 88305; J2704

== ENCOUNTER 2021-10-08 08:47 | Day surgery (SDC) | payer OTHER ==
[2021-10-04 16:36] VITALS: BMI 23.7
[~2021-10-08 08:47] MED LIST changes: +LACTATED RINGERS 1,000 ML IV SCH
[2021-10-08 10:17] VITALS: RESP 16; TEMP 97.4
[2021-10-08] MEDS ORDERED: PROPOFOL 10 MG/ML 20 ML VIAL IV ONE (10:34)
--- NOTE | 2021-10-08 10:40 | P.GSHP ---
History of Present Illness H&P Date: 10/08/21 Chief Complaint: Screening, anemia 36-year-old female with history of anemia. Here today for colonoscopy. Last time she came in for colonoscopy for prep was poor so she was rescheduled. Recent EGD did not show any significant abnormalities. Past Medical History Past Medical History: GERD/Reflux Additional Past Medical History / Comment(s): hx. Gestational diabetes 2017, recent bradycardia, History of Any Multi-Drug Resistant Organisms: None Reported Past Surgical History: Bariatric Surgery, Section, Cholecystectomy, Tubal Ligation Additional Past Surgical History / Comment(s): Cesearean section x2 (2012, 2016), gastric sleeve 10/17/19 Past Anesthesia/Blood Transfusion Reactions: Motion Sickness Additional Past Anesthesia/Blood Transfusion Reaction / Comment(s): No transfusion to date Smoking Status: Former smoker - Past Family History Father Family Medical History: Deep Vein Thrombosis (DVT) Additional Family Medical History / Comment(s): crohns Mother Family Medical History: Cancer Additional Family Medical History / Comment(s): CERVICAL CANCER Medications and Allergies Home Medications Medication Instructions Recorded Confirmed Type Omeprazole [PriLOSEC] 40 mg PO DAILY #30 capsule. 10/21/19 10/04/21 Rx Flintstones Multivit W/Iron 2 tab PO DAILY 07/17/20 10/04/21 History Iron 18 mg PO DAILY 08/27/21 10/04/21 History Ergocalciferol [Vitamin D2 (1250 1,250 mcg PO PATE 09/06/21 10/04/21 History Mcg = [id number] Iu)] Iron Infusin IV FR 10/04/21 History Allergies Allergy/AdvReac Type Severity Reaction Status Date / Time Penicillins Allergy RASH AND Verified 10/04/21 11:57 HIVES Surgical - Exam Vital Signs Temp Pulse Resp BP Pulse Ox 97.4 F L 49 L 16 97/56 100 10/08/21 10:11 10/08/21 10:11 10/08/21 10:11 10/08/21 10:11 10/08/21 10:11 Physical exam: General: Well-developed, well-nourished HEENT: Normocephalic, sclerae nonicteric Abdomen: Nontender, nondistended Extremities: No edema Neuro: Alert and oriented Assessment and Plan (1) Colon cancer screening Narrative/Plan: Will proceed with colonoscopy at this time Current Visit: Yes Status: Acute Code(s): Z12.11 - ENCOUNTER FOR SCREENING FOR MALIGNANT NEOPLASM OF COLON SNOMED Code(s): 647616469
--- NOTE | 2021-10-08 10:57 | P.PCN ---
Date of Procedure: 10/08/21 Procedure(s) Performed: PREOPERATIVE DIAGNOSIS: Iron deficiency anemia, screening POSTOPERATIVE DIAGNOSIS: Poor prep PROCEDURE: Colonoscopy ANESTHESIA: MAC SURGEON: Eyal Bledsoe M.D. SPECIMENS: None ENDOSCOPIC PROCEDURE: The patient was placed on the endoscopy table in the left decubitus position. The Olympus colonoscope was inserted into the anus and passed under direct visualization to the region of the cecum. The patient had retained solid and liquid stool seen throughout the colon limiting our evaluation significantly. When we reached what appeared to represent the cecum I could not visualize the appendiceal orifice with certainty and it is possible this was a tight turn near the hepatic flexure. We could not advance scope more proximal given the poor prep. The visualized right colon, transverse, descending sigmoid and rectum. Free of any gross large abnormalities. No definite diverticulosis was seen. Digital rectal examination was normal. The patient was taken to the recovery room in stable condition per anesthesia guidelines. RECOMMENDATIONS: We'll discuss endoscopic findings with patient. Patient should consider improved prep with reevaluation.
[2021-10-08 11:00] VITALS: BP 107/53
[2021-10-08 11:25] VITALS: PULSE 50
== END 2021-10-08 11:30 | disposition home or self-care (01) ==
LOC: ORWHC2ENDO 08:47
PROVIDERS: ATTEND Surgery
DX: D50.9 Iron deficiency anemia, unspecified (principal); K21.9 Gastro-esophageal reflux disease without esophagitis; Z83.79 Family history of other diseases of the digestive system; Z87.891 Personal history of nicotine dependence; Z88.0 Allergy status to penicillin; Z80.49 Family history of malignant neoplasm of other genital organs
CPT/HCPCS: 45378; 81025; J2704

== ENCOUNTER 2021-11-07 10:44 | Day surgery (SDC) | payer OTHER ==
[2021-11-05 15:57] VITALS: BMI 24.4
[~2021-11-07 10:44] MED LIST changes: -LACTATED RINGERS 1,000 ML IV SCH; -LIDOCAINE 1% (10MG/ML) FOR IV START INTRADERMA PRN; +SODIUM CHLORIDE 0.9% 1,000 ML IV SCH
[2021-11-07] MEDS ORDERED: SODIUM CHLORIDE 0.9% 500 ML 500 ML IV ONE (11:01)
[2021-11-07 11:07] VITALS: RESP 16; TEMP 97
[2021-11-07 13:32] VITALS: PULSE 50
[2021-11-07 13:46] VITALS: BP 121/72
--- NOTE | 2021-11-07 16:28 | P.EPPROC ---
- EP Procedure Note Electrophysiology Procedure Note: Diagnosis, Recurrent syncope Twelve-lead EKG shows sinus mechanism normal OH narrow QRS normal ST segments No delta waves no epsilon waves Tilt table test for protocol Baseline blood pressure 109/57 mmHg Baseline heart rate 48 bpm Patient was tilted upright at an angle of 70 per protocol No significant change in her blood pressure or heart rate upon standing No evidence for neurocardiogenic syncope No evidence for dysautonomia or orthostatic intolerance Impression Normal twelve-lead EKG No evidence for neurocardiogenic syncope
== END 2021-11-07 13:47 | disposition home or self-care (01) ==
LOC: CATHEP 10:44
PROVIDERS: ATTEND Internal Medicine Clinical Cardiac Electrophysiology
DX: R55 Syncope and collapse (principal); Z20.822 Contact with and (suspected) exposure to COVID-19; R00.1 Bradycardia, unspecified; Z72.0 Tobacco use; Z98.84 Bariatric surgery status; Z79.899 Other long term (current) drug therapy; Z88.0 Allergy status to penicillin; Z82.49 Family history of ischemic heart disease and other diseases of the circulatory system
CPT/HCPCS: 87635; 93660

== ENCOUNTER → 2022-10-21 | Outpatient (CLI) | payer OTHER ==
[2022-10-21 14:17] VITALS: BP 117/70; PULSE 61; RESP 16; TEMP 98; BMI 24.2
--- NOTE | 2022-10-21 15:00 | P.BASOAP ---
Subjective Progress Note Date: 10/21/22 Principal diagnosis: GERD, anemia Patient returns for recheck. She was last seen in July. Patient underwent sleeve gastrectomy 3 years ago. Recent hemoglobin in the 8 range. Patient's iron has been low over the years. She has heavy menstrual flow. She has seen hematology once. No iron infusions since last January. She feels tired and sluggish. She has lost 4 pounds since her last visit. She gets frequent left mid abdominal discomfort. This will last for 5-10 minutes at a time. Multiple times per day. She had a previous EGD and colonoscopy showing no definite abnormalities. Objective - Vital Signs Vital signs: Vital Signs Temp 98 F 10/21/22 14:15 Pulse 61 10/21/22 14:15 Resp 16 10/21/22 14:15 BP 117/70 10/21/22 14:15 Pulse Ox FiO2 Intake & Output 10/20/22 10/21/22 10/21/22 18:59 06:59 18:59 Weight 63.503 kg - Exam Abdomen: Soft, nontender, nondistended Assessment/Plan (1) Morbid obesity Narrative/Plan: 37-year-old female with morbid obesity, anemia, GERD. Patient with left-sided abdominal pain. We'll order CT abdomen and pelvis to evaluate for diverticulitis or other pathology. We'll reach out to hematology to have them see her again. Continue antiacids daily. Plan: Date: 10/21/22 Initial Weight: 110.722 kg Initial BMI: 42.2 Current Weight: 63.503 kg Current BMI: 24.2 Type of Surgery: Vertical Sleeve Gastrectomy Total Volume in Band: Previous Volume: Volume Removed: Volume Added: Band Size:
== END ==
LOC: BARWHC3 13:51
PROVIDERS: ATTEND Surgery
DX: E66.01 Morbid (severe) obesity due to excess calories (principal); Z68.24 Body mass index [BMI] 24.0-24.9, adult; K21.9 Gastro-esophageal reflux disease without esophagitis; Z88.0 Allergy status to penicillin; Z87.891 Personal history of nicotine dependence
CPT/HCPCS: 99211

== ENCOUNTER → 2022-10-30 | Outpatient (CLI) | payer OTHER ==
--- NOTE | 2022-10-30 08:59 | CT ---
EXAMINATION TYPE: CT abdomen pelvis w con CT DLP: 529.90 mGycm, Automated exposure control for dose reduction was used. DATE OF EXAM: 10/30/2022 8:13 AM COMPARISON: CT abdomen pelvis most recent from 07/17/2020 CLINICAL INDICATION:Female, 37 years old with history of K57.92 diverticulitis; Diverticulitis TECHNIQUE: Axial CT of the abdomen and pelvis. Sagittal and coronal reformats were created on a [employer] workstation. Contrast used:100 ml mL of Isovue 300 with IV Contrast, Oral contrast used: with Oral Contrast FINDINGS: LOWER CHEST: Unremarkable ABDOMEN LIVER: Unremarkable GALLBLADDER AND BILE DUCTS: Gallbladder is surgically absent with mild intrahepatic and extra hepatic biliary dilatation likely physiologic and a postcholecystectomy change. No evidence of choledocholit hiasis. PANCREAS: Unremarkable. SPLEEN: Unremarkable. ADRENAL GLANDS: Unremarkable. KIDNEYS AND URETERS: No evidence of hydronephrosis. nonobstructing left 4 mm calculus. No right renal calculi PELVIS BLADDER: Incompletely distended but grossly unremarkable. REPRODUCTIVE: There is a tampon in the vagina. ABDOMEN & PELVIS STOMACH AND BOWEL: No evidence of bowel obstruction. Postsurgical changes to the gastroesophageal pantera ction/gastric lumen there is a large stool burden throughout the colon. The appendix is normal. Pauci ty of intra-abdominal fat limits evaluation for inflammation in the abdomen or pelvis. PERITONEUM/RETROPERITONEUM: No evidence of pneumoperitoneum or free fluid. VASCULATURE: No evidence of aortic aneurysm. MUSCULOSKELETAL: No acute osseous abnormalities LYMPH NODES: No gross evidence for lymphadenopathy. SOFT TISSUE/ABDOMINAL WALL: Unremarkable IMPRESSION: 1. Paucity of intra-abdominal fat limits evaluation for inflammation in the abdomen or pelvis. 2. Large stool burden throughout the colon which extends from tortuosity of the sigmoid colon to the cecum. 3. Postsurgical changes of stomach. 4. Nonobstructing left renal calculus.
== END | disposition home or self-care (01) ==
LOC: RADCTMAIN 06:40
PROVIDERS: ATTEND Surgery
DX: N20.0 Calculus of kidney (principal); K57.92 Diverticulitis of intestine, part unspecified, without perforation or abscess without bleeding
CPT/HCPCS: 74177; Q9967